=== PATIENT | female | born 1980 | race Caucasian/White ===

== ENCOUNTER → 2016-07-10 | Outpatient (CLI) | payer BC | LOC: M LAB 09:47 | PROVIDERS: ATTEND Psychiatry & Neurology Psychiatry | DX: Z51.81 Encounter for therapeutic drug level monitoring (principal); Z79.899 Other long term (current) drug therapy ==

== ENCOUNTER → 2016-08-12 | Day surgery (SDC) | payer BC ==
[~2016-08-12] VITALS: Ht 160 cm; Wt 86.2 kg
[~2016-08-12] MED LIST: ABIL1TAB5 PO; BUPIVACAINE HCL 0.25% 30 ML VIAL As Ordered ONE; BUPR10TASR PO; HYDROmorphone HCL 1 MG/ML SYRINGE (J1170) IV PRN; KETOROLAC 60 MG/2 ML VIAL (J1885) As Ordered ONE; LIDOCAINE 1% SDV INJ 30 ML VIAL As Ordered ONE; LR 1,000 ML IV SCH; MIDAZOLAM INJ 2 MG/2 ML VIAL (J2250) As Ordered ONE; ONDANSETRON 4MG/2ML VIAL (J2405) As Ordered ONE; ONDANSETRON 4MG/2ML VIAL (J2405) IV PRN; OXYC1TAB23 PO; PERCOCET 5MG/325MG TAB PO PRN; PROPOFOL 500 MG/50 ML VIAL As Ordered ONE; fentaNYL 100 MCG/2 ML INJECTION (J3010) As Ordered ONE; fentaNYL 100 MCG/2 ML INJECTION (J3010) IV PRN
[2016-08-12 13:39] LABS: CONTROL LINE UCG INT CTR LINE PRESENT
[2016-08-12 16:15] VITALS: BP 122/72
--- NOTE | 2016-08-13 07:26 | RO ---
DATE OF PROCEDURE: 08/12/2016 PREPROCEDURE DIAGNOSIS: Right Bartholin's gland abscess. POSTPROCEDURE DIAGNOSIS: Right Bartholin's gland abscess. PROCEDURE: Marsupialization of right Bartholin's gland abscess. SURGEON: Dr. Parker Grigsby. 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 ESTIMATED BLOOD LOSS: Minimal. FINDINGS: 3 cm right Bartholin's gland abscess. OPERATIVE SUMMARY: The patient was taken to the operating room where IV sedation was given. She was prepped and draped in a sterile fashion in dorsal lithotomy position. The right Bartholin's gland abscess was identified and marked with a marking pen. The area was injected with 10 mL of 0.25% Marcaine. Elliptical incision was made in the skin overlying the Bartholin's gland on the right. Bartholin's gland was incised and copious amount of purulent discharge was obtained. Part of the ventral wall of the gland was excised with a scalpel. The skin of the inner labia was secured to the remaining wall of the gland with interrupted sutures of #4-0 Vicryl. Good hemostasis was noted. The area was irrigated with saline. Sponge, needle and instrument counts were correct. The patient went to the recovery room in stable condition.
== END | disposition home or self-care (01) ==
LOC: M SDC 12:43
PROVIDERS: ATTEND Specialist
DX: N75.1 Abscess of Bartholin's gland (principal); J45.909 Unspecified asthma, uncomplicated; F32.9 Major depressive disorder, single episode, unspecified; Z79.899 Other long term (current) drug therapy; Z87.891 Personal history of nicotine dependence
CPT/HCPCS: 36415; 56440; 84703; 85014; 85018; 88304; J1885; J2250; J2405; J3010

== ENCOUNTER → 2016-11-26 | Outpatient (CLI) | payer BC ==
[~2016-11-26] MED LIST changes: +ABIL10TA9 PO; -ABIL1TAB5 PO; -BUPIVACAINE HCL 0.25% 30 ML VIAL As Ordered ONE; -HYDROmorphone HCL 1 MG/ML SYRINGE (J1170) IV PRN; -KETOROLAC 60 MG/2 ML VIAL (J1885) As Ordered ONE; -LIDOCAINE 1% SDV INJ 30 ML VIAL As Ordered ONE; -LR 1,000 ML IV SCH; -MIDAZOLAM INJ 2 MG/2 ML VIAL (J2250) As Ordered ONE; -ONDANSETRON 4MG/2ML VIAL (J2405) As Ordered ONE; -ONDANSETRON 4MG/2ML VIAL (J2405) IV PRN; -PERCOCET 5MG/325MG TAB PO PRN; -PROPOFOL 500 MG/50 ML VIAL As Ordered ONE; -fentaNYL 100 MCG/2 ML INJECTION (J3010) As Ordered ONE; -fentaNYL 100 MCG/2 ML INJECTION (J3010) IV PRN
== END ==
LOC: M LAB 09:02
PROVIDERS: ATTEND Psychiatry & Neurology Psychiatry
DX: Z51.81 Encounter for therapeutic drug level monitoring (principal); Z79.899 Other long term (current) drug therapy

== ENCOUNTER → 2017-01-07 | Outpatient (CLI) | payer BC | LOC: M SMT 14:24 | PROVIDERS: ATTEND Advanced Practice Midwife | DX: Z11.3 Encounter for screening for infections with a predominantly sexual mode of transmission (principal) ==

== ENCOUNTER → 2017-01-17 | Outpatient (REF) | payer BC | LOC: M LAB REF 12:56 | PROVIDERS: ATTEND Obstetrics & Gynecology | DX: Z11.3 Encounter for screening for infections with a predominantly sexual mode of transmission (principal) ==

== ENCOUNTER → 2017-04-18 | Outpatient (CLI) | payer BC ==
[2017-04-18 15:07] LABS: HEMATOCRIT 41.9 % (36.0-47.0); HEMOGLOBIN 13.9 g/dl (12.0-16.0); MEAN CORPUSCULAR HEMOGLOBIN 30.1 pg (27.0-33.0); MEAN CORPUSCULAR HGB CONC 33.2 g/dl (32.0-36.5); MEAN CORPUSCULAR VOLUME 90.7 fl (80.0-96.0); PLATELET COUNT, AUTOMATED 273 10^3/uL (150-450); RED BLOOD COUNT 4.62 10^6/uL (4.00-5.40); RED CELL DISTRIBUTION WIDTH 13.2 % (11.5-14.5); WHITE BLOOD COUNT 10.8 10^3/uL (4.0-10.0)
[2017-04-18 15:40] LABS: ALBUMIN 3.8 GM/DL (3.2-5.2); ALBUMIN/GLOBULIN RATIO 1.19 (1.00-1.93); ALKALINE PHOSPHATASE 55 U/L (45-117); ALT/SGPT 26 U/L (12-78); ANION GAP 4 MEQ/L (8-16); AST/SGOT 14 U/L (7-37); BILIRUBIN,TOTAL 0.5 MG/DL (0.2-1.0); BLOOD UREA NITROGEN 15 MG/DL (7-18); CALCIUM LEVEL 8.2 MG/DL (8.5-10.1); CARBON DIOXIDE LEVEL 29 MEQ/L (21-32); CHLORIDE LEVEL 110 MEQ/L (98-107); CHOLESTEROL LEVEL 144 MG/DL (<200); CREATININE FOR GFR 0.89 MG/DL (0.55-1.02); GLOMERULAR FILTRATION RATE > 60.0 (>60); GLUCOSE, FASTING 91 MG/DL (70-105); HDL CHOLESTEROL 61 MG/DL (>40); IRON (FE) 136 UG/DL (50-170); LDL CHOLESTEROL 58.4 MG/DL (<100); MAGNESIUM LEVEL 2.6 MG/DL (1.8-2.4); NON-HDL-C 83 MG/DL; PERCENT SATURATION 45.2 % (13.2-45.0); POTASSIUM SERUM 3.9 MEQ/L (3.5-5.1); SODIUM LEVEL 143 MEQ/L (136-145); TOTAL 25(OH) VITAMIN D 27.3 NG/ML (30.0-100.0); TOTAL IRON BINDING CAPACITY 301 UG/DL (250-450); TRIGLYCERIDES LEVEL 123 MG/DL (<150)
== END ==
LOC: M LAB 14:44
DX: D64.9 Anemia, unspecified (principal); R53.83 Other fatigue; E03.9 Hypothyroidism, unspecified
CPT/HCPCS: 83550

== ENCOUNTER 2017-06-24 19:12 | Inpatient (IN) | payer BC ==
[2017-06-24 20:15] LABS: HEMATOCRIT 43.2 % (36.0-47.0); HEMOGLOBIN 14.5 g/dl (12.0-16.0); MEAN CORPUSCULAR HEMOGLOBIN 30.1 pg (27.0-33.0); MEAN CORPUSCULAR HGB CONC 33.6 g/dl (32.0-36.5); MEAN CORPUSCULAR VOLUME 89.6 fl (80.0-96.0); PLATELET COUNT, AUTOMATED 262 10^3/uL (150-450); RED BLOOD COUNT 4.82 10^6/uL (4.00-5.40); RED CELL DISTRIBUTION WIDTH 12.6 % (11.5-14.5); WHITE BLOOD COUNT 10.9 10^3/uL (4.0-10.0)
[2017-06-24 20:55] LABS: AMPHETAMINES LEVEL URINE NEGATIVE (NEGATIVE); BARBITURATES URINE NEGATIVE (NEGATIVE); BENZODIAZEPINES URINE NEGATIVE (NEGATIVE); CANNABINOIDS URINE POSITIVE (NEGATIVE); COCAINE METABOLITE URINE POSITIVE (NEGATIVE); METHADONE URINE NEGATIVE (NEGATIVE); OPIATES URINE NEGATIVE (NEGATIVE); PHENCYCLIDINE URINE NEGATIVE (NEGATIVE)
[2017-06-24 21:01] LABS: ALBUMIN 3.9 GM/DL (3.2-5.2); ALBUMIN/GLOBULIN RATIO 1.11 (1.00-1.93); ALKALINE PHOSPHATASE 75 U/L (45-117); ALT/SGPT 21 U/L (12-78); ANION GAP 6 MEQ/L (8-16); AST/SGOT 15 U/L (7-37); BILIRUBIN,DIRECT < 0.1 MG/DL (0.0-0.2); BILIRUBIN,TOTAL 0.3 MG/DL (0.2-1.0); BLOOD UREA NITROGEN 22 MG/DL (7-18); CALCIUM LEVEL 8.8 MG/DL (8.5-10.1); CARBON DIOXIDE LEVEL 28 MEQ/L (21-32); CHLORIDE LEVEL 105 MEQ/L (98-107); CREATININE FOR GFR 1.14 MG/DL (0.55-1.30); ETHYL ALCOHOL (ETHANOL) < 0.003 % (0.000-0.010); GLOMERULAR FILTRATION RATE 57.1 (>60); GLUCOSE, FASTING 111 MG/DL (70-100); POTASSIUM SERUM 3.9 MEQ/L (3.5-5.1); SALICYLATE LEVEL < 1.7 MG/DL (5.0-30.0); SODIUM LEVEL 139 MEQ/L (136-145); THYROID STIMULATING HORMONE 0.993 uIU/ML (0.358-3.740); TOTAL PROTEIN 7.4 GM/DL (6.4-8.2)
[2017-06-24 21:10] LABS: ACETAMINOPHEN LEVEL < 2.0 UG/ML (10.0-30.0)
[2017-06-24] MEDS ORDERED: MAALOX 30 ML SUSP *UDC PO (23:15)
[2017-06-24] MEDS ORDERED: MOM 30ML SUSPENSION UDC PO (23:15)
[2017-06-24] MEDS ORDERED: traZODone 50 MG TAB PO (23:15)
[2017-06-25] MEDS: INFLUENZA QUADRIVALENT PF VACCINE 0.5ML SYRINGE (90686) IM (09:59)
[2017-06-25] MEDS: NICOTINE 14 MG/24 HR TRANSDERMAL TD (10:00)
[2017-06-25] MEDS: buPROPion (WELLBUTRIN SR) 100 MG SR TAB PO (12:27)
[2017-06-25] MEDS: TOPIRAMATE (TopAMAX) 25 MG TAB PO ×2 (12:27→20:15)
[2017-06-25 13:11] LABS: CONTROL LINE HCG INT CTR LINE PRESENT; HCG, SERUM QUALITATIVE NEGATIVE (NEGATIVE)
[2017-06-25] MEDS: risperiDONE 1 MG TAB PO (21:38)
[2017-06-26] MEDS: NICOTINE 14 MG/24 HR TRANSDERMAL TD (08:26)
[2017-06-26] MEDS: buPROPion (WELLBUTRIN SR) 100 MG SR TAB PO (08:27)
[2017-06-26] MEDS: TOPIRAMATE (TopAMAX) 25 MG TAB PO ×2 (08:27→20:49)
[2017-06-26 12:24] LABS: HEMATOCRIT 41.8 % (36.0-47.0); MEAN CORPUSCULAR HEMOGLOBIN 29.7 pg (27.0-33.0); MEAN CORPUSCULAR HGB CONC 33.5 g/dl (32.0-36.5); MEAN CORPUSCULAR VOLUME 88.7 fl (80.0-96.0); PLATELET COUNT, AUTOMATED 278 10^3/uL (150-450); RED BLOOD COUNT 4.71 10^6/uL (4.00-5.40); RED CELL DISTRIBUTION WIDTH 12.6 % (11.5-14.5); WHITE BLOOD COUNT 7.6 10^3/uL (4.0-10.0)
[2017-06-26 13:04] LABS: ALBUMIN 3.8 GM/DL (3.2-5.2); ALBUMIN/GLOBULIN RATIO 1.19 (1.00-1.93); ALKALINE PHOSPHATASE 64 U/L (45-117); ALT/SGPT 23 U/L (12-78); ANION GAP 7 MEQ/L (8-16); AST/SGOT 16 U/L (7-37); BILIRUBIN,TOTAL 0.3 MG/DL (0.2-1.0); BLOOD UREA NITROGEN 19 MG/DL (7-18); CALCIUM LEVEL 9.2 MG/DL (8.5-10.1); CARBON DIOXIDE LEVEL 28 MEQ/L (21-32); CHLORIDE LEVEL 108 MEQ/L (98-107); GLOMERULAR FILTRATION RATE 59.5 (>60); GLUCOSE, FASTING 92 MG/DL (70-100); POTASSIUM SERUM 4.3 MEQ/L (3.5-5.1); SODIUM LEVEL 143 MEQ/L (136-145)
[2017-06-26] MEDS: ACETAMINOPHEN TAB 650MG DOSE (2X325MG) PO (13:23)
[2017-06-26] MEDS: risperiDONE 1 MG TAB PO (21:44)
[2017-06-27] MEDS: TOPIRAMATE (TopAMAX) 25 MG TAB PO (08:35)
[2017-06-27] MEDS: NICOTINE 14 MG/24 HR TRANSDERMAL TD (08:36)
[2017-06-27] MEDS: buPROPion (WELLBUTRIN SR) 100 MG SR TAB PO (08:36)
== END 2017-06-27 11:30 | disposition home or self-care (01) | DRG 755 ==
LOC: M PSY 06-25 00:02 → M ED 19:12 → M ED INP 23:10
DX: F43.23 Adjustment disorder with mixed anxiety and depressed mood (principal); F14.20 Cocaine dependence, uncomplicated; F12.20 Cannabis dependence, uncomplicated; F19.94 Other psychoactive substance use, unspecified with psychoactive substance-induced mood disorder; F60.9 Personality disorder, unspecified; F17.200 Nicotine dependence, unspecified, uncomplicated; Z79.899 Other long term (current) drug therapy

== ENCOUNTER → 2017-08-07 | Outpatient (CLI) | payer SELFPAY | LOC: M OUTALCOH 12:13 | DX: F14.20 Cocaine dependence, uncomplicated (principal) ==

== ENCOUNTER → 2017-08-26 | Outpatient (REF) | payer BC ==
[2017-08-27 13:52] LABS: AMPHETAMINES URINE REFLEX NEGATIVE (NEGATIVE); BARBITURATES URINE REFLEX NEGATIVE (NEGATIVE); BENZODIAZEPINES URINE REFLEX NEGATIVE (NEGATIVE); CANNABINOIDS URINE REFLEX NEGATIVE (NEGATIVE); COCAINE METABOLITE URINE REFLE NEGATIVE (NEGATIVE); METHADONE URINE REFLEX NEGATIVE (NEGATIVE); OPIATES URINE REFLEX NEGATIVE (NEGATIVE); PHENCYCLIDINE URINE REFLEX NEGATIVE (NEGATIVE)
== END ==
LOC: M OUTALCOH 12:54
DX: F12.20 Cannabis dependence, uncomplicated (principal)
CPT/HCPCS: 80307

== ENCOUNTER 2017-08-31 19:37 | Emergency (ER) | payer BC ==
[2017-08-31 20:33] LABS: KETONE, URINE AUTO RFX TRACE mg/dL (NEGATIVE); LEUKOCYTE ESTERASE UR AUTO RFX NEGATIVE (NEGATIVE); MUCUS, URINE RFX SMALL (NEGATIVE); NITRITE, URINE AUTO RFX NEGATIVE (NEGATIVE); RBC, URINE AUTO RFX 87 /HPF (0-3); SPECIFIC GRAVITY UR AUTO RFX 1.021 (1.002-1.035); SQUAM EPITHELIAL CELL UR AURFX 1 /HPF (0-6); WBC, URINE AUTO RFX 3 /HPF (0-3)
== END 2017-08-31 20:06 | disposition left against medical advice (07) ==
LOC: M ED 20:06
DX: Z20.2 Contact with and (suspected) exposure to infections with a predominantly sexual mode of transmission (principal); Z53.21 Procedure and treatment not carried out due to patient leaving prior to being seen by health care provider
CPT/HCPCS: 81001

== ENCOUNTER 2017-09-03 23:09 | Emergency (ER) | payer BC | END 2017-09-04 02:46 | disposition left against medical advice (07) | LOC: M ED 23:09 | DX: Z20.2 Contact with and (suspected) exposure to infections with a predominantly sexual mode of transmission (principal); Z53.21 Procedure and treatment not carried out due to patient leaving prior to being seen by health care provider | CPT/HCPCS: 99282 ==

== ENCOUNTER 2017-09-24 03:08 | Inpatient (IN) | payer OTHER, BC ==
[2017-09-24 04:37] LABS: HEMATOCRIT 40.1 % (36.0-47.0); HEMOGLOBIN 13.7 g/dl (12.0-15.5); MEAN CORPUSCULAR HEMOGLOBIN 30.1 pg (27.0-33.0); MEAN CORPUSCULAR HGB CONC 34.2 g/dl (32.0-36.5); MEAN CORPUSCULAR VOLUME 88.1 fl (80.0-96.0); PLATELET COUNT, AUTOMATED 230 10^3/uL (150-450); RED BLOOD COUNT 4.55 10^6/uL (4.00-5.40); RED CELL DISTRIBUTION WIDTH 12.9 % (11.5-14.5); WHITE BLOOD COUNT 6.6 10^3/uL (4.0-10.0)
[2017-09-24 04:55] LABS: CONTROL LINE HCG INT CTR LINE PRESENT; HCG, SERUM QUALITATIVE NEGATIVE (NEGATIVE)
[2017-09-24 05:00] LABS: AMPHETAMINES LEVEL URINE NEGATIVE (NEGATIVE); BARBITURATES URINE NEGATIVE (NEGATIVE); BENZODIAZEPINES URINE NEGATIVE (NEGATIVE); CANNABINOIDS URINE NEGATIVE (NEGATIVE); COCAINE METABOLITE URINE NEGATIVE (NEGATIVE); METHADONE URINE NEGATIVE (NEGATIVE); OPIATES URINE NEGATIVE (NEGATIVE); PHENCYCLIDINE URINE NEGATIVE (NEGATIVE)
[2017-09-24 05:10] LABS: ALBUMIN 3.6 GM/DL (3.2-5.2); ALBUMIN/GLOBULIN RATIO 1.09 (1.00-1.93); ALKALINE PHOSPHATASE 59 U/L (45-117); ALT/SGPT 15 U/L (12-78); ANION GAP 12 MEQ/L (8-16); AST/SGOT 10 U/L (7-37); BILIRUBIN,DIRECT < 0.1 MG/DL (0.0-0.2); BILIRUBIN,TOTAL 0.2 MG/DL (0.2-1.0); BLOOD UREA NITROGEN 15 MG/DL (7-18); CALCIUM LEVEL 8.5 MG/DL (8.5-10.1); CARBON DIOXIDE LEVEL 24 MEQ/L (21-32); CHLORIDE LEVEL 109 MEQ/L (98-107); CREATININE FOR GFR 1.02 MG/DL (0.55-1.30); ETHYL ALCOHOL (ETHANOL) < 0.003 % (0.000-0.010); GLOMERULAR FILTRATION RATE > 60.0 (>60); GLUCOSE, FASTING 89 MG/DL (70-100); POTASSIUM SERUM 3.7 MEQ/L (3.5-5.1); SALICYLATE LEVEL 2.8 MG/DL (5.0-30.0); SODIUM LEVEL 145 MEQ/L (136-145); TOTAL PROTEIN 6.9 GM/DL (6.4-8.2)
[2017-09-24 05:18] LABS: ACETAMINOPHEN LEVEL < 2.0 UG/ML (10.0-30.0)
[2017-09-24] MEDS ORDERED: traZODone 50 MG TAB PO (11:00)
[2017-09-24] MEDS ORDERED: MAALOX 30 ML SUSP *UDC PO (11:00)
[2017-09-24] MEDS ORDERED: MOM 30ML SUSPENSION UDC PO (11:00)
[2017-09-24] MEDS: PALIPERIDONE 3 MG ER TAB (INVEGA) PO ×2 (12:00→22:16)
[2017-09-24] MEDS: TOPIRAMATE (TopAMAX) 25 MG TAB PO ×2 (12:00→22:16)
[2017-09-24] MEDS: buPROPion (WELLBUTRIN SR) 100 MG SR TAB PO (12:00)
[2017-09-24] MEDS ORDERED: PALIPERIDONE 3 MG ER TAB (INVEGA) PO (21:00)
[2017-09-24] MEDS ORDERED: risperiDONE 1 MG TAB PO (21:00)
[2017-09-25] MEDS: TOPIRAMATE (TopAMAX) 25 MG TAB PO ×2 (08:50→22:03)
[2017-09-25] MEDS: buPROPion (WELLBUTRIN SR) 100 MG SR TAB PO (08:50)
[2017-09-25] MEDS ORDERED: buPROPion (WELLBUTRIN SR) 100 MG SR TAB PO (09:00)
[2017-09-25] MEDS: PALIPERIDONE 3 MG ER TAB (INVEGA) PO (22:03)
[2017-09-26] MEDS: ACETAMINOPHEN TAB 650MG DOSE (2X325MG) PO (03:52)
[2017-09-26] MEDS: TOPIRAMATE (TopAMAX) 25 MG TAB PO (08:51)
[2017-09-26] MEDS: buPROPion (WELLBUTRIN SR) 100 MG SR TAB PO (08:51)
[2017-09-26] MEDS ORDERED: ARIPiprazole 2 MG TAB PO (09:00)
[2017-09-26] MEDS ORDERED: FEXOFENADINE 60 MG TAB PO (12:00)
[2017-09-26] MEDS: SODIUM CHLORIDE 0.9% NASAL GEL 15GM (AYR) (13:57)
[2017-09-26] MEDS ORDERED: PILL CRUSHER/CUTTER 1 EACH XX (14:15)
== END 2017-09-26 14:30 | disposition home or self-care (01) | DRG 750 ==
LOC: M ED 03:08 → M ED INP 05:41 → M PSY 10:25
DX: F25.9 Schizoaffective disorder, unspecified (principal); F19.10 Other psychoactive substance abuse, uncomplicated; M54.2 Cervicalgia; Z79.899 Other long term (current) drug therapy; Z87.891 Personal history of nicotine dependence

== ENCOUNTER 2017-10-01 00:16 | Emergency (ER) | payer OTHER | END 2017-10-01 00:40 | disposition left against medical advice (07) | LOC: M ED 00:16 | DX: Z53.29 Procedure and treatment not carried out because of patient's decision for other reasons (principal) ==

== ENCOUNTER → 2017-12-10 | Outpatient (REF) | LOC: M SMT 09:56 | DX: Z02.71 Encounter for disability determination (principal) ==

== ENCOUNTER 2017-12-24 10:36 | Day surgery (SDC) | payer BC, MEDICAID ==
[~2017-12-24 10:36] MED LIST changes: -ABIL10TA9 PO; -BUPR10TASR PO; +LR 1,000 ML IV; -OXYC1TAB23 PO
[2017-12-24 11:14] LABS: CONTROL LINE UCG INT CTR LINE PRESENT; URINE PREG TEST NEGATIVE (NEGATIVE)
[2017-12-24 11:30] LABS: HEMATOCRIT 40.7 % (36.0-47.0); HEMOGLOBIN 13.9 g/dl (12.0-15.5)
[2017-12-24] MEDS ORDERED: LIDOCAINE 2% INJ 100 MG/5 ML SDV (FOR ANES.) As Ordered ×6 (11:38)
[2017-12-24] MEDS ORDERED: ONDANSETRON 4MG/2ML VIAL (J2405) As Ordered ×6 (11:38)
[2017-12-24] MEDS ORDERED: PROPOFOL 200 MG/20 ML VIAL As Ordered ×6 (11:38)
[2017-12-24] MEDS ORDERED: MIDAZOLAM INJ 2 MG/2 ML VIAL (J2250) As Ordered ×6 (11:38)
[2017-12-24] MEDS ORDERED: fentaNYL 100 MCG/2 ML INJECTION (J3010) As Ordered ×6 (11:39)
[2017-12-24] MEDS ORDERED: dexameTHASONE 4 MG/ML 1ML VIAL (J1100) As Ordered ×6 (11:40)
[2017-12-24] MEDS ORDERED: KETOROLAC 60 MG/2 ML VIAL (J1885) As Ordered ×6 (11:40)
[2017-12-24] MEDS: BUPIVACAINE HCL 0.25% 30 ML VIAL As Ordered ×6 (12:15)
== END 2017-12-24 13:37 | disposition home or self-care (01) ==
LOC: M ADMPAT 10:36
DX: N75.0 Cyst of Bartholin's gland (principal); C96.6 Unifocal Langerhans-cell histiocytosis; F41.9 Anxiety disorder, unspecified; F32.9 Major depressive disorder, single episode, unspecified; F20.9 Schizophrenia, unspecified; J45.909 Unspecified asthma, uncomplicated; R06.83 Snoring; R76.11 Nonspecific reaction to tuberculin skin test without active tuberculosis; Z72.0 Tobacco use; Z79.899 Other long term (current) drug therapy
CPT/HCPCS: 56440

== ENCOUNTER 2017-12-29 05:28 | Emergency (ER) | payer MEDICAID, OTHER, BC ==
[2017-12-29] MEDS: OLANZapine 10 MG TAB PO (05:53)
== END 2017-12-29 06:20 | disposition home or self-care (01) ==
LOC: M ED 05:28
DX: F41.9 Anxiety disorder, unspecified (principal); Z79.899 Other long term (current) drug therapy
CPT/HCPCS: 99284

== ENCOUNTER → 2017-12-31 | Outpatient (CLI) | payer MEDICAID | LOC: M OUTALCOH 08:34 | DX: Z13.89 Encounter for screening for other disorder (principal); F12.20 Cannabis dependence, uncomplicated; F14.20 Cocaine dependence, uncomplicated ==

== ENCOUNTER 2018-01-07 13:00 | Outpatient (RCR) | payer MEDICAID | END 2018-01-11 | LOC: M OUTALCOH 13:00 | DX: F14.20 Cocaine dependence, uncomplicated (principal); F17.200 Nicotine dependence, unspecified, uncomplicated; F12.20 Cannabis dependence, uncomplicated ==

== ENCOUNTER 2018-01-12 10:47 | Outpatient (RCR) | payer MEDICAID | END 2018-02-11 | LOC: M OUTALCOH 01-15 10:00 | DX: F14.20 Cocaine dependence, uncomplicated (principal); F17.200 Nicotine dependence, unspecified, uncomplicated; F12.20 Cannabis dependence, uncomplicated ==

== ENCOUNTER → 2018-01-26 | Outpatient (REF) | payer MEDICAID ==
[2018-01-30 14:21] LABS: HPV LOW VOL RFLX Negative (Negative)
== END ==
LOC: M LAB REF 18:28
DX: Z12.4 Encounter for screening for malignant neoplasm of cervix (principal)

== ENCOUNTER 2018-02-12 16:37 | Outpatient (RCR) | payer MEDICAID | END 2018-03-13 | LOC: M OUTALCOH 02-16 14:00 | DX: F14.20 Cocaine dependence, uncomplicated (principal); F17.200 Nicotine dependence, unspecified, uncomplicated; F12.20 Cannabis dependence, uncomplicated ==

== ENCOUNTER 2018-03-04 18:56 | Emergency (ER) | payer MEDICAID ==
[2018-03-04] MEDS: hydrOXYzine 25 MG TAB PO (22:29)
== END 2018-03-04 22:32 | disposition home or self-care (01) ==
LOC: M ED 18:56
DX: F41.1 Generalized anxiety disorder (principal); F32.9 Major depressive disorder, single episode, unspecified; Z79.899 Other long term (current) drug therapy
CPT/HCPCS: 99283

== ENCOUNTER → 2018-07-22 | Outpatient (CLI) | payer OTHER ==
[~2018-07-22] MED LIST changes: +ABIL10TA9 PO; +ARIP1TAB; +ARIP1TAB4; +ARIP1TAB6 PO; +BUPR10TASR PO; +BUPR200T PO; +FEXO60CA PO; +FLAG500T PO; +HYDR-3363 PO; +IBUP80TA PO; -LR 1,000 ML IV; +NICODIS2 TD; +OXYC1TAB23 PO; +RISP1TAB3 PO; +SODIGEL; +TOPA1TAB; +TOPI25TA10 PO; +TRAZ-160; +WELLTAB40
[2018-07-22 13:11] LABS: HEMATOCRIT 39.2 % (36.0-47.0); HEMOGLOBIN 12.9 g/dl (12.0-15.5); MEAN CORPUSCULAR HEMOGLOBIN 29.4 pg (27.0-33.0); MEAN CORPUSCULAR HGB CONC 32.9 g/dl (32.0-36.5); MEAN CORPUSCULAR VOLUME 89.3 fl (80.0-96.0); PLATELET COUNT, AUTOMATED 230 10^3/uL (150-450); RED BLOOD COUNT 4.39 10^6/uL (4.00-5.40)
[2018-07-22 13:41] LABS: ALBUMIN 3.7 GM/DL (3.2-5.2); ALT/SGPT 36 U/L (12-78); BILIRUBIN,TOTAL 0.2 MG/DL (0.2-1.0); BLOOD UREA NITROGEN 18 MG/DL (7-18); CALCIUM LEVEL 8.9 MG/DL (8.5-10.1); CARBON DIOXIDE LEVEL 25 MEQ/L (21-32); CHLORIDE LEVEL 109 MEQ/L (98-107); CHOLESTEROL LEVEL 128 MG/DL (<200); CHOLESTEROL RISK RATIO 2.133 (<5); CREATININE FOR GFR 1.05 MG/DL (0.55-1.30); GLOMERULAR FILTRATION RATE > 60.0 (>60); GLUCOSE, FASTING 95 MG/DL (70-100); HDL CHOLESTEROL 60 MG/DL (>40); LDL CHOLESTEROL 55 MG/DL (<100); NON-HDL-C 68 MG/DL; POTASSIUM SERUM 4.2 MEQ/L (3.5-5.1); SODIUM LEVEL 140 MEQ/L (136-145); THYROXINE (T4) 7.4 UG/DL (4.5-12.0); TOTAL PROTEIN 6.9 GM/DL (6.4-8.2); TRIGLYCERIDES LEVEL 64 MG/DL (<150)
[2018-07-22 13:42] LABS: TOTAL 25(OH) VITAMIN D 28.3 NG/ML (30.0-100.0)
[2018-07-22 13:43] LABS: TOTAL T3 93.8 NG/DL (60.0-181.0)
[2018-07-22 14:22] LABS: HEMOGLOBIN A1c 5.3 %
--- NOTE | 2018-07-23 03:20 | REP ---
Clinical: Fatigue . Comparison: 08/10/2013 . Technique: PA and lateral. Findings: The mediastinum and cardiac silhouette are normal. The lung brush are clear and without acute consolidation, effusion, or pneumothorax. The skeletal structures are intact and normal. Impression: 1. No acute cardiopulmonary process. Electronically Signed by Fady Huggins MD 07/23/2018 03:11 A
--- NOTE | 2018-07-23 20:31 | ECGEPIP ---
Stationary ECG Study [facility] Test Date: 2018-07-22 Pat Name: ROOPA CAMARENA Department: Room: - Gender: F Bee Rancher: RAY : 1980 Requested By: Belen Bautista Order Number: [id number] Reading MD: Vin Colbert Measurements Intervals Leroy Rate: 51 P: 56 [place]: 176 QRS: 53 QRSD: 105 T: 43 QT: 406 QTc: 374 Interpretive Statements SINUS BRADYCARDIA POSSIBLE RIGHT VENTRICULAR CONDUCTION DELAY MINIMAL ST DEPRESSION No change from 06/25/17. Electronically Signed On 07-23-2018 20:31:25 EDT by Vin Colbert
== END ==
LOC: M LAB 12:17
PROVIDERS: ATTEND Family Medicine
DX: E03.9 Hypothyroidism, unspecified (principal); D64.9 Anemia, unspecified; R53.83 Other fatigue; R00.1 Bradycardia, unspecified; R94.31 Abnormal electrocardiogram [ECG] [EKG]

== ENCOUNTER 2018-12-24 18:00 | Emergency (ER) | payer MEDICAID, OTHER ==
[~2018-12-24] VITALS: Ht 160 cm; Wt 73.5 kg
[2018-12-24 18:00] VITALS: BP 138/76
[~2018-12-24 18:00] MED LIST changes: -TRAZ-160; +TRAZ-252
[2018-12-24] MEDS ORDERED: VALA1TAB2 (18:10)
== END 2018-12-24 21:15 | disposition home or self-care (01) ==
LOC: M ED 18:00
DX: F41.1 Generalized anxiety disorder (principal); F17.210 Nicotine dependence, cigarettes, uncomplicated; J30.2 Other seasonal allergic rhinitis; Z79.3 Long term (current) use of hormonal contraceptives; Z79.83 Long term (current) use of bisphosphonates; Z79.899 Other long term (current) drug therapy

== ENCOUNTER → 2018-12-30 | Outpatient (REF) | payer OTHER ==
[~2018-12-30] MED LIST changes: +VALA1TAB2
== END ==
LOC: M LAB REF 19:09
PROVIDERS: ATTEND Nurse Practitioner Family
DX: E55.9 Vitamin D deficiency, unspecified (principal)

== ENCOUNTER → 2019-02-02 | Outpatient (REF) | payer OTHER, MEDICAID ==
[~2019-02-02] MED LIST changes: +D-101000; +MELO15TA28; -TOPA1TAB; +TOPA1TAB PO
[2019-02-06 15:57] LABS: HPV LOW VOL RFLX Negative (Negative)
== END ==
LOC: M LAB REF 18:43
PROVIDERS: ATTEND Specialist
DX: Z12.4 Encounter for screening for malignant neoplasm of cervix (principal); R87.610 Atypical squamous cells of undetermined significance on cytologic smear of cervix (ASC-US)

== ENCOUNTER 2019-02-12 13:51 | Emergency (ER) | payer MEDICAID, OTHER ==
[~2019-02-12] VITALS: Ht 160 cm; Wt 74.1 kg
[~2019-02-12 13:51] MED LIST changes: -D-101000; -MELO15TA28
[2019-02-12] MEDS ORDERED: D-101000 (14:14)
[2019-02-12] MEDS ORDERED: MELO15TA28 (14:14)
[2019-02-12 15:08] LABS: BASO # 0.1 10^3/uL (0.0-0.2); BASO % 0.5 % (0.0-1.0); EOS # 0.2 10^3/uL (0.0-0.5); EOS % 2.1 % (0.0-3.0); HEMATOCRIT 44.3 % (36.0-47.0); HEMOGLOBIN 14.3 g/dl (12.0-15.5); LYMPH # 2.4 10^3/uL (1.5-5.0); LYMPH % 22.2 % (24.0-44.0); MEAN CORPUSCULAR HEMOGLOBIN 30.3 pg (27.0-33.0); MEAN CORPUSCULAR HGB CONC 32.3 g/dl (32.0-36.5); MEAN CORPUSCULAR VOLUME 93.9 fl (80.0-96.0); MONO # 0.6 10^3/uL (0.0-0.8); MONO % 5.6 % (0.0-5.0); NEUTROPHILS # 7.6 10^3/uL (1.5-8.5); NEUTROPHILS % 69.3 % (36.0-66.0); PLATELET COUNT, AUTOMATED 264 10^3/uL (150-450); RED BLOOD COUNT 4.72 10^6/uL (4.00-5.40); WHITE BLOOD COUNT 10.9 10^3/uL (4.0-10.0)
[2019-02-12 15:18] LABS: INR 1.07; PROTHROMBIN TIME 13.6 SECONDS (11.8-14.0)
[2019-02-12 15:19] LABS: PARTIAL THROMBOPLASTIN TIME 29.6 SECONDS (25.0-38.4)
[2019-02-12 15:21] LABS: D-DIMER QUANT 1048.91 ng/ml (<500)
--- NOTE | 2019-02-12 15:25 | REP ---
Two-view chest: 02/12/2019. Indication: Chest pain. Comparison: 07/22/2018. Findings: The lungs are clear. There is no pleural effusion or pneumothorax. The cardiomediastinal silhouette is unremarkable. New impression: No acute cardiopulmonary process. Electronically Signed by Timoteo Gao DO 02/12/2019 03:17 P
[2019-02-12 15:35] LABS: MONO REFLEX EBV COMP NEGATIVE (NEGATIVE)
[2019-02-12 15:36] LABS: ALBUMIN 3.5 GM/DL (3.2-5.2); ALT/SGPT 33 U/L (12-78); BILIRUBIN,DIRECT < 0.1 MG/DL (0.0-0.2); BILIRUBIN,TOTAL 0.2 MG/DL (0.2-1.0); BLOOD UREA NITROGEN 25 MG/DL (7-18); C REACTIVE PROTEIN QUANTITATIV < 0.30 MG/DL (0.00-0.30); CALCIUM LEVEL 8.5 MG/DL (8.5-10.1); CARBON DIOXIDE LEVEL 26 MEQ/L (21-32); CHLORIDE LEVEL 113 MEQ/L (98-107); CREATININE FOR GFR 1.04 MG/DL (0.55-1.30); GLOMERULAR FILTRATION RATE > 60.0 (>60); GLUCOSE, FASTING 90 MG/DL (70-100); POTASSIUM SERUM 4.1 MEQ/L (3.5-5.1); SODIUM LEVEL 144 MEQ/L (136-145); TOTAL PROTEIN 7.1 GM/DL (6.4-8.2)
[2019-02-12 15:39] LABS: ERYTHROCYTE SEDIMENTATION RATE 8 mm/hr (0-20)
[2019-02-12] MEDS ORDERED: ISOVUE-370 76% 100ML VIAL (Q9967) As Ordered ONE (15:41)
--- NOTE | 2019-02-12 16:43 | REP ---
CT PULMONARY ANGIOGRAM: WITH IV CONTRAST. HISTORY: Shortness of breath, swollen lymph nodes. COMPARISON STUDIES: Comparison chest CT study and April 02, 2011. CONTRAST DOSE: 75 mL of Isovue [address] TECHNIQUE: Helical scanning is acquired and overlapping 1.5 mm and contiguous 3 mm axial images are reformatted. In addition, maximum intensity projection and multiplanar re-formation images are generated in sagittal and coronal imaging projections. CT PULMONARY ANGIOGRAPHIC FINDINGS: There is good opacification of the pulmonary arterial tree. There is no vessel cutoff or filling defect to suggest pulmonary embolus. Maximum intensity projection images show no evidence of pulmonary embolus. The thoracic aorta enhances homogeneously. There is no evidence of dissection or aneurysm. There is a small quantity of residual thymic tissue in the anterior mediastinum, unchanged from the 2011 prior study. There is no evidence of hilar or mediastinal mass or adenopathy. There is a tiny amount of pericardial effusion. In addition, there are tiny bilateral pleural effusions. Similar findings were seen in 2011. The lung brush are clear. There is a tiny 2-3 mm nodule in the left upper lobe on page 19 of 90 in series 602 of today's study. This is unchanged from the 2011 study. IMPRESSION: No CT evidence of pulmonary embolus. Very small amount of right pleural and pericardial fluid, similar to the prior study in 2010. Otherwise negative. Electronically Signed by John Boone MD 02/13/2019 09:30 A
[2019-02-12 18:00] VITALS: BP 126/71
[2019-02-16 00:14] LABS: EBV VIRAL CAPSID AG IgM <36.0 U/mL (0.0-35.9)
== END 2019-02-12 18:11 | disposition home or self-care (01) ==
LOC: M ED 13:51
DX: R59.0 Localized enlarged lymph nodes (principal); J02.9 Acute pharyngitis, unspecified; R06.02 Shortness of breath; R91.1 Solitary pulmonary nodule; I31.3 Pericardial effusion (noninflammatory); J45.909 Unspecified asthma, uncomplicated; Z86.2 Personal history of diseases of the blood and blood-forming organs and certain disorders involving the immune mechanism
CPT/HCPCS: 36415; 71046; 71275; 80048; 80076; 85025; 85379; 85610; 85652; 85730; 86140; 86308; 86663; 86664; 86665; 87880; 99284; Q9967

== ENCOUNTER → 2019-04-19 | Outpatient (REF) | payer OTHER, MEDICAID ==
[~2019-04-19] MED LIST changes: +D-101000; +MELO15TA28; -VALA1TAB2; +VALA1TAB64
[2019-04-19 21:26] LABS: CHLAMYDIA DNA AMPLIFICATION NEGATIVE (NEGATIVE); GC DNA AMPLIFICATION NEGATIVE (NEGATIVE)
== END ==
LOC: M SFHCWAGY 16:52
PROVIDERS: ATTEND Advanced Practice Midwife
DX: Z11.3 Encounter for screening for infections with a predominantly sexual mode of transmission (principal)

== ENCOUNTER 2019-08-21 21:12 | Emergency (ER) | payer MEDICAID, OTHER ==
[~2019-08-21] VITALS: Ht 160 cm; Wt 77.9 kg
[~2019-08-21 21:12] MED LIST changes: +VALA1TAB5; -VALA1TAB64
[2019-08-21] MEDS ORDERED: ALPRAZolam 0.25 MG TAB PO ONE (21:45)
[2019-08-21] MEDS ORDERED: HYDR-643 PO (22:11)
[2019-08-21 22:25] VITALS: BP 142/68
== END 2019-08-21 22:27 | disposition home or self-care (01) ==
LOC: M ED 21:12
DX: F41.1 Generalized anxiety disorder (principal); J45.909 Unspecified asthma, uncomplicated; Z79.899 Other long term (current) drug therapy

== ENCOUNTER → 2019-08-25 | Outpatient (CLI) | payer MEDICAID ==
[~2019-08-25] MED LIST changes: +HYDR-643 PO
== END ==
LOC: M OUTALCOH 08:09
PROVIDERS: ATTEND Psychiatry & Neurology Addiction Medicine
DX: F12.10 Cannabis abuse, uncomplicated (principal); F17.200 Nicotine dependence, unspecified, uncomplicated

== ENCOUNTER 2019-09-01 13:11 | Outpatient (RCR) | payer MEDICAID | END 2019-09-12 | LOC: M OUTALCOH 13:11 | PROVIDERS: ATTEND Psychiatry & Neurology Addiction Medicine | DX: F12.10 Cannabis abuse, uncomplicated (principal); F17.200 Nicotine dependence, unspecified, uncomplicated ==

== ENCOUNTER → 2019-09-30 | Outpatient (CLI) | payer OTHER ==
[~2019-09-30] MED LIST changes: +CIPR0.3S OD
== END ==
LOC: M LABSMTC 10:21
PROVIDERS: ATTEND Family Medicine
DX: Z20.828 Contact with and (suspected) exposure to other viral communicable diseases (principal)
CPT/HCPCS: C9803; U0003

== ENCOUNTER 2019-10-18 21:04 | Emergency (ER) | payer MEDICAID, OTHER ==
[~2019-10-18] VITALS: Ht 160 cm; Wt 75.7 kg
[~2019-10-18 21:04] MED LIST changes: -CIPR0.3S OD
[2019-10-19] MEDS ORDERED: FLUORESCEIN OPHTH 1 MG STRIP OD ONE
[2019-10-19] MEDS ORDERED: TETRACAINE 0.5% OPHTH SOLN 4ML OU ONE
[2019-10-19] MEDS ORDERED: CIPR0.3S OD (00:13)
[2019-10-19] MEDS ORDERED: CIPROFLOXACIN 0.3% OPHTH SOLN 2.5ML OD ONE (00:15)
[2019-10-19 00:26] VITALS: BP 116/80
== END 2019-10-19 00:32 | disposition home or self-care (01) ==
LOC: M ED 21:04
DX: S05.01XA Injury of conjunctiva and corneal abrasion without foreign body, right eye, initial encounter (principal); Y92.9 Unspecified place or not applicable; Y93.9 Activity, unspecified; Y99.9 Unspecified external cause status

== ENCOUNTER 2020-02-08 22:07 | Emergency (ER) | payer MEDICAID, OTHER ==
[~2020-02-08] VITALS: Ht 162.6 cm; Wt 76.7 kg
[2020-02-08 22:07] VITALS: BP 130/71
[~2020-02-08 22:07] MED LIST changes: +CIPR0.3S6 OD
[2020-02-08] MEDS ORDERED: VALA500T5 PO (22:22)
[2020-02-08] MEDS ORDERED: ALBU83IN INH (22:22)
[2020-02-08] MEDS ORDERED: TRAZ-252 PO (22:22)
[2020-02-08] MEDS ORDERED: AMMO12LO TOP (22:22)
[2020-02-08] MEDS ORDERED: KEFL500C17 PO (23:16)
== END 2020-02-08 23:20 | disposition home or self-care (01) ==
LOC: M ED 22:07
DX: L02.211 Cutaneous abscess of abdominal wall (principal); J45.909 Unspecified asthma, uncomplicated; F33.9 Major depressive disorder, recurrent, unspecified; F41.9 Anxiety disorder, unspecified; Z79.51 Long term (current) use of inhaled steroids; Z79.899 Other long term (current) drug therapy

== ENCOUNTER → 2020-05-01 | Outpatient (CLI) | payer MEDICARE, OTHER ==
[~2020-05-01] MED LIST changes: +ALBU83IN INH; +AMMO12LO TOP; -BUPR200T PO; +BUPR200T2 PO; +KEFL500C17 PO; +RISP-8 PO; -RISP1TAB3 PO; +TRAZ-252 PO; +VALA500T5 PO
[2020-05-01 09:30] LABS: BASO # 0.1 10^3/uL (0.0-0.2); BASO % 0.9 % (0.0-1.0); EOS # 0.2 10^3/uL (0.0-0.5); EOS % 2.6 % (0.0-3.0); HEMATOCRIT 46.5 % (36.0-47.0); HEMOGLOBIN 15.2 g/dl (12.0-15.5); LYMPH # 2.4 10^3/uL (1.5-5.0); LYMPH % 33.9 % (24.0-44.0); MEAN CORPUSCULAR HEMOGLOBIN 31.1 pg (27.0-33.0); MEAN CORPUSCULAR HGB CONC 32.7 g/dl (32.0-36.5); MEAN CORPUSCULAR VOLUME 95.1 fl (80.0-96.0); MONO # 0.6 10^3/uL (0.0-0.8); NEUTROPHILS # 3.8 10^3/uL (1.5-8.5); NEUTROPHILS % 54.3 % (36.0-66.0); PLATELET COUNT, AUTOMATED 209 10^3/uL (150-450); RED BLOOD COUNT 4.89 10^6/uL (4.00-5.40)
[2020-05-01 10:03] LABS: ALBUMIN 3.8 GM/DL (3.2-5.2); BILIRUBIN,TOTAL 0.4 MG/DL (0.2-1.0); CALCIUM LEVEL 9.1 MG/DL (8.5-10.1); CHOLESTEROL RISK RATIO 3.113 (<5); CREATININE FOR GFR 1.23 MG/DL (0.55-1.30); GLOMERULAR FILTRATION RATE 51.7 (>60); PERCENT SATURATION 38.5 % (13.2-45.0); POTASSIUM SERUM 4.1 MEQ/L (3.5-5.1); THYROID STIMULATING HORMONE 1.01 uIU/ML (0.358-3.740); TOTAL PROTEIN 7.2 GM/DL (6.4-8.2)
[2020-05-01 10:33] LABS: TOTAL 25(OH) VITAMIN D 35.2 NG/ML (30.0-100.0)
[2020-05-01 10:34] LABS: FOLATE 18.2 NG/ML
== END ==
LOC: M LAB 08:52
PROVIDERS: ATTEND Physician Assistant
DX: E55.9 Vitamin D deficiency, unspecified (principal); R53.83 Other fatigue; Z13.220 Encounter for screening for lipoid disorders; Z13.228 Encounter for screening for other metabolic disorders; Z79.899 Other long term (current) drug therapy

== ENCOUNTER → 2020-05-12 | Outpatient (CLI) | payer SELFPAY | LOC: M LABSMTC 10:07 | PROVIDERS: ATTEND Pediatrics | DX: Z20.822 Contact with and (suspected) exposure to COVID-19 (principal) ==

== ENCOUNTER → 2020-05-21 | Outpatient (REF) | payer MEDICARE, OTHER | LOC: M WUC 17:29 | PROVIDERS: ATTEND Physician Assistant | DX: J02.9 Acute pharyngitis, unspecified (principal) ==

== ENCOUNTER → 2020-05-26 | Outpatient (REF) | payer MEDICARE, OTHER ==
[~2020-05-26] MED LIST changes: +ALBU8.5H INH; +AMOX500C PO; -ARIP1TAB; +ARIP1TAB PO; -ARIP1TAB4; +ARIP1TAB4 PO; +BUPR300T92 PO; +D31000TA2 PO; +FURO80VL IV; +KLOR10TA76 PO; +MELO15TA28 PO
[2020-05-26 12:57] LABS: PERCENT SATURATION 36.2 % (13.2-45.0)
== END ==
LOC: M LAB REF 11:46
PROVIDERS: ATTEND Physician Assistant
DX: R53.83 Other fatigue (principal)

== ENCOUNTER 2020-05-29 01:23 | Inpatient (IN) | payer MEDICARE, OTHER ==
[~2020-05-29] VITALS: Ht 165.1 cm; Wt 74.1 kg
[2020-05-29] VITALS (25 sets, daily range): BP systolic 111–182; BP diastolic 63–111
[~2020-05-29 01:23] MED LIST changes: -ALBU8.5H INH; -AMOX500C PO; -BUPR300T92 PO; -D31000TA2 PO; -FURO80VL IV; -KLOR10TA76 PO; -MELO15TA28 PO
--- OUTSIDE RECORDS SUMMARY | 2020-05-29 01:28 | CCD ---
Author Organization Unknown Address [address] [place] [address] Phone [phone] Care Team Providers Care Director Center Name Role Phone Denita Muhammad Unavailable Unavailable Allergies Notes: seasonal allergies Medications Name Status Start Date Stop Date albuterol sulfate HFA 90 mcg/actuation aerosol inhaler Active Not available alfalfa Completed 05/01/2020 aripiprazole 10 mg tablet TAKE ONE TABLET BY MOUTH EVERY DAY AT BEDTIME DIRECTED Active Not available aripiprazole 2 mg tablet TAKE ONE TABLET BY MOUTH EVERY DAY AT BEDTIME DIRECTED Active Not available bupropion HCl XL 300 mg 24 hr tablet, ex tended release TAKE ONE TABLET BY MOUTH EVERY DAY IN THE MORNING Active Not available Calcium Liquid Active Not available cephalexin 500 mg capsule TAKE ONE CAPSULE BY MOUTH EVERY 12 HOURS Completed 04/28/2020 cholecalciferol (vitamin D3) 25 mcg (1,0 00 unit) tablet TAKE ONE TABLET BY MOUTH EVERY DAY Completed 04/14 ciprofloxacin 0.3 % eye drops Completed clindamycin phosphate 1 % topical solution Active Not available coconut oil Active Not available d3-1000 25 mcg (1000 ut) caps Completed 0 04/28/2020 Emergen-C Completed 04/28/2020 Fluarix Quad (PF) 60 mcg (15 m cg x 4)/0.5 mL IM syringe ADMINISTER 0.5ML IN THE MUSCLE DIRECTED Completed 04/28/2020 hydroxyzine HCl 10 mg tablet Completed meloxicam 15 mg tablet TAKE ONE TABLET BY MOUTH EVERY DAY WITH FOOD OR MILK Active Not available metronidazole 500 mg tablet TAKE ONE TABLET BY MOUTH THREE TIMES A DAY FOR 7 DAYS Completed 04/28/2020 nicotine 14 mg/24 hr daily transdermal patch Active Not available Probiotic Active Not available topiramate 25 mg tablet TAKE ONE TABLET BY MOUTH TWICE A DAY Active No t available trazodone 50 mg tablet TAKE ONE TABLET BY MOUTH AT BEDTIME NEEDED FOR SLEEP Active Not available urea 20 % topical cream Active Not avai lable valacyclovir 500 mg tablet Active Not a vailable Vitamin C Active Not available vitamin d3 25 mcg (1000 ut) tabs Active Not available Vitamin D3 25 mcg (1,000 unit) capsule TAKE 1 CAPSULE BY MOUTH ONCE DAILY Completed 04/14 zinc Active Not available Problems Name Status Onset Date Source Vitamin D Deficiency Active 12/30/2018 History Anxiety Active 12/30/2018 History Procedure by Method Unknown 12/30/2018 History Langerhans Cell Histiocytosis, 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 [address] [place] [address] (Work Place) Notes: 1995 breast reduction , teeth ext ractions, 2011 cyst removed from head , 2014 cyst removed from cervix , DNC, Barthaline gland removed JACINTO , Results Lab Results None recorded. Past Encounters 04/28/2020 Adult Health Examination; Vitamin D Deficiency; Fatigue; Transient Gluten Sensitivity; Screening for Malignant Neoplasm of Breast; Smoker; Low Back Pain; Hyperlipidemia Screening; Endocrine/metabolic Screening Denita Muhammad PA-C: [address] [place] [address], Ph. Social History Tobacco Smoking Status Light Tobacco Smoker (1 PPW) Notes: P t trying to cut down Vaccine List None recorded. Plan of Care Reminders Provider Appointments None recorded. Lab None recorded. Referral None recorded. Procedures None recorded. Surgeries None recorded. Imaging None recorded. Vitals 04/28/2020 02:00PM ANNUAL EXAM Height Weight BMI Blood Pressure 63 in 165 lbs 2 oz 29.3 kg/m2 135/79 mm[Hg] 08/05/2019 Height Weight Blood Pressure 63 in 161 lbs 136/88 mm[Hg] 03/03/2019 Height Weight Blood Pressure 63 in 161 lbs 152/93 mm[Hg] 02/12/2019 Height Weight Blood Pressure 63 in 167 lbs 8 oz 122/79 mm[Hg] 12/30/2018 Height Weight Blood Pressure 63 in 158 lbs 114/81 mm[Hg]
--- OUTSIDE RECORDS SUMMARY | 2020-05-29 01:28 | CCD | Continuity of Care Document ---
Author Author Carmelina VILLEGAS PA Organization Unknown Address [address] [place] [address] Phone [phone] Care Team Providers Care Digital Printer Operator Name Role Phone Denita MuhammadM [phone] Problems Description No Information Available Social History Type Date Description Comments Sex Unknown ETOH Use Denies alcohol use Tobacco Use Start: Unknown Patient is a current smoker, smo kes every day < 1/2 ppd Smoking Status Reviewed: 05/21/20 Patient is a current smoker, smokes every day < 1/2 ppd Allergies, Adverse Reactions, Alerts Description No Known Drug Allergies Medications Active Medications SIG Qnty Indications Ordering Provide r Date Abilify 5mg Tablets one per d ay Unknown Bupropion Hydrochloride ER (XL) 300mg Tablets ER 24HR 1 by mouth every day Unknown 000 Topamax 50mg Tablets qd Unknown Trazodone HCL 50mg Tablets qd Unknown Meloxicam 7.5mg Tablets 1 by mouth every day Unknown Vitamin D (Ergocalciferol) 1.25mg (88362 Ut) Capsules qd Unknown Valtrex 1gm Tablets 1 tab by mouth three times a day for 7 days Unknown 0 Immunizations Description No Information Available Vital Signs Date Vital Result Comment 05/21/2020 8:36am BP Systolic 104 mmHg BP Diastolic 71 mmHg Heart Rate 98 /min Respiratory Rate 16 /min O2 % BldC Oximetry 99 % Body Temperature 97.3 F Weight 158.00 lb Pain Level 8 Results Description No Information Available Procedures Description No Information Available Medical Devices Description No Information Available Encounters Description No Information Available Assessments Description No Information Available Plan of Treatment No Information Available Functional Status Description No Information Available Mental Status Description No Information Available Referrals Description No Information Available
--- OUTSIDE RECORDS SUMMARY | 2020-05-29 01:28 | CCD ---
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 Name Role Phone Gabriella MUÑOZ DPM Unavailable Unavailable Gabriella MUÑOZ DPM Unavailable Unavailable Gabriella MUÑOZ DPM Unavailable Unavailable Gabriella MUÑOZ DPM Unavailable Unavailable Gabriella MUÑOZ DPM Unavailable Unavailable Gabriella MUÑOZ DPM Unavailable Unavailable Gabriella MUÑOZ DPM Unavailable Unavailable Gabriella MUÑOZ DPM Unavailable Unavailable Gabriella MUÑOZ DPM Unavailable Unavailable Gabriella MUÑOZ DPM Unavailable Unavailable Gabriella MUÑOZ DPM Unavailable Unavailable Gabriella MUÑOZ DPM Unavailable Unavailable Gabriella MUÑOZ DPM Unavailable Unavailable Gabriella MUÑOZ DPM Unavailable Unavailable Gabriella MUÑOZ DPM Unavailable Unavailable MAJAK, R HERNESTO DPM Unavailable Unavailable MAJAK, R HERNESTO DPM Unavailable Unavailable MAJAK, R HERNESTO DPM Unavailable Unavailable MAJAK, R HERNESTO DPM Unavailable Unavailable MAJAK, R HERNESTO DPM Unavailable Unavailable MAJAK, R HERNESTO DPM Unavailable Unavailable MAJAK, R HERNESTO DPM Unavailable Unavailable MAJAK, R HERNESTO DPM Unavailable Unavailable MAJAK, R HERNESTO DPM Unavailable Unavailable MAJAK, R HERNESTO DPM Unavailable Unavailable MAJAK, R HERNESTO DPM Unavailable Unavailable MAJAK, R HERNESTO DPM Unavailable Unavailable MAJAK, R HERNESTO DPM Unavailable Unavailable MAJAK, R HERNESTO DPM Unavailable Unavailable MAJAK, R HERNESTO DPM Unavailable Unavailable Jose Rafael MINA MD Unavailable Unavailable Jose Rafael MINA MD Unavailable Unavailable Jose Rafael MINA MD Unavailable Unavailable Jose Rafael MINA MD Unavailable Unavailable Jose Rafael MINA MD Unavailable Unavailable Jose Rafael MINA MD Unavailable Unavailable Jose Rafael MINA MD Unavailable Unavailable Jose Rafael MINA MD Unavailable Unavailable Jose Rafael MINA MD Unavailable Unavailable Jose Rafael MINA MD Unavailable Unavailable Jose Rafael MINA MD Unavailable Unavailable Jose Rafael MINA MD Unavailable Unavailable Jose Rafael MINA MD Unavailable Unavailable Jose Rafael MINA MD Unavailable Unavailable Jose Rafael MINA MD Unavailable Unavailable Jose Rafael MINA MD Unavailable Unavailable Jose Rafael MINA MD Unavailable Unavailable Jose Rafael MINA MD Unavailable Unavailable Jose Rafael MINA MD Unavailable Unavailable Jose Rafael MINA MD Unavailable Unavailable Jose Rafael MINA MD Unavailable Unavailable Jose Rafael MINA MD Unavailable Unavailable Jose Rafael MINA MD Unavailable Unavailable Jose Rafael MINA MD Unavailable Unavailable Jose Rafael MINA MD Unavailable Unavailable Jose Rafael MINA MD Unavailable Unavailable Jose Rafael MINA MD Unavailable Unavailable Jose Rafael MINA MD Unavailable Unavailable Jose Rafael MINA MD Unavailable Unavailable Jose Rafael MINA MD Unavailable Unavailable Jose Rafael MINA MD Unavailable Unavailable Jose Rafael MINA MD Unavailable Unavailable Jose Rafael MINA MD Unavailable Unavailable Jose Rafael MINA MD Unavailable Unavailable Jose Rafael MINA MD Unavailable Unavailable Jose Rafael MINA MD Unavailable Unavailable Jose Rafael MINA MD Unavailable Unavailable Jose Rafael MINA MD Unavailable Unavailable Jose Rafael MINA MD Unavailable Unavailable Jose Rafael MINA MD Unavailable Unavailable Jose Rafael MINA MD Unavailable Unavailable Jose Rafael MINA MD Unavailable Unavailable Jose Rafael MINA MD Unavailable Unavailable Jose Rafael MINA MD Unavailable Unavailable Jose Rafael MINA MD Unavailable Unavailable Jose Rafael MINA MD Unavailable Unavailable Jose Rafael MINA MD Unavailable Unavailable Jose Rafael MINA MD Unavailable Unavailable Jose Rafael MINA MD Unavailable Unavailable Scordo, M Denita PA Unavailable Unavailable Scordo, M Denita PA Unavailable Unavailable Scordo, M Denita PA Unavailable Unavailable Scordo, M Denita PA Unavailable Unavailable Scordo, M Denita PA Unavailable Unavailable Scordo, M Denita PA Unavailable Unavailable Scordo, M Denita PA Unavailable Unavailable Scordo, M Denita PA Unavailable Unavailable Scordo, M Denita PA Unavailable Unavailable Scordo, M Denita PA Unavailable Unavailable Scordo, M Denita PA Unavailable Unavailable Scordo, M Denita PA Unavailable Unavailable Scordo, M Denita PA Unavailable Unavailable Scordo, M Denita PA Unavailable Unavailable Scordo, M Denita PA Unavailable Unavailable Scordo, M Denita PA Unavailable Unavailable Scordo, M Denita PA Unavailable Unavailable Scordo, M Denita PA Unavailable Unavailable Scordo, M Denita PA Unavailable Unavailable Scordo, M Denita PA Unavailable Unavailable Scordo, M Denita PA Unavailable Unavailable Scordo, M Denita PA Unavailable Unavailable Scordo, M Denita PA Unavailable Unavailable Scordo, M Denita PA Unavailable Unavailable Scordo, M Denita PA Unavailable Unavailable Scordo, M Denita PA Unavailable Unavailable Scordo, M Denita PA Unavailable Unavailable Scordo, M Denita PA Unavailable Unavailable Scordo, M Denita PA Unavailable Unavailable Scordo, M Denita PA Unavailable Unavailable Scordo, M Denita PA Unavailable Unavailable Scordo, M Denita PA Unavailable Unavailable Scordo, M Denita PA Unavailable Unavailable Scordo, M Denita PA Unavailable Unavailable Scordo, M Denita PA Unavailable Unavailable Scordo, M Denita PA Unavailable Unavailable Scordo, M Denita PA Unavailable Unavailable Scordo, M Denita PA Unavailable Unavailable Scordo, M Denita PA Unavailable Unavailable Scordo, M Denita PA Unavailable Unavailable Scordo, M Denita PA Unavailable Unavailable Scordo, M Denita PA Unavailable Unavailable Brown, Prema SEASONAL GREENERY BUNDLER SEASONAL GREENERY BUNDLER Unavailable Unavailable JINGA, CRISTINO [id number] Unavailable Unavailable Brown, F Prema SEASONAL GREENERY BUNDLER-BC Unavailable Unavailable Brown, F Prema SEASONAL GREENERY BUNDLER-BC Unavailable Unavailable Brown, F Prema SEASONAL GREENERY BUNDLER-BC Unavailable Unavailable Brown, F Prema SEASONAL GREENERY BUNDLER-BC Unavailable Unavailable Brown, F Prema SEASONAL GREENERY BUNDLER-BC Unavailable Unavailable Brown, F Prema SEASONAL GREENERY BUNDLER-BC Unavailable Unavailable Brown, F Prema SEASONAL GREENERY BUNDLER-BC Unavailable Unavailable Brown, F Prema SEASONAL GREENERY BUNDLER-BC Unavailable Unavailable Brown, F Prema SEASONAL GREENERY BUNDLER-BC Unavailable Unavailable Brown, F Prema SEASONAL GREENERY BUNDLER-BC Unavailable Unavailable Brown, F Prema SEASONAL GREENERY BUNDLER-BC Unavailable Unavailable Brown, F Prema SEASONAL GREENERY BUNDLER-BC Unavailable Unavailable Brown, F Prema SEASONAL GREENERY BUNDLER-BC Unavailable Unavailable Brown, F Prema SEASONAL GREENERY BUNDLER-BC Unavailable Unavailable Brown, F Prema SEASONAL GREENERY BUNDLER-BC Unavailable Unavailable Brown, F Prema SEASONAL GREENERY BUNDLER-BC Unavailable Unavailable Brown, F Prema SEASONAL GREENERY BUNDLER-BC Unavailable Unavailable Brown, F Prema SEASONAL GREENERY BUNDLER-BC Unavailable Unavailable Brown, F Prema SEASONAL GREENERY BUNDLER-BC Unavailable Unavailable Brown, F Prema SEASONAL GREENERY BUNDLER-BC Unavailable Unavailable Brown, F Prema SEASONAL GREENERY BUNDLER-BC Unavailable Unavailable Brown, F Prema SEASONAL GREENERY BUNDLER-BC Unavailable Unavailable Brown, F Prema SEASONAL GREENERY BUNDLER-BC Unavailable Unavailable Brown, F Prema SEASONAL GREENERY BUNDLER-BC Unavailable Unavailable Brown, F Prema SEASONAL GREENERY BUNDLER-BC Unavailable Unavailable Brown, F Prema SEASONAL GREENERY BUNDLER-BC Unavailable Unavailable Brown, F Prema SEASONAL GREENERY BUNDLER-BC Unavailable Unavailable Brown, F Prema SEASONAL GREENERY BUNDLER-BC Unavailable Unavailable Brown, F Prema SEASONAL GREENERY BUNDLER-BC Unavailable Unavailable Brown, F Prema SEASONAL GREENERY BUNDLER-BC Unavailable Unavailable Brown, F Prema SEASONAL GREENERY BUNDLER-BC Unavailable Unavailable Brown, F Prema SEASONAL GREENERY BUNDLER-BC Unavailable Unavailable Brown, F Prema SEASONAL GREENERY BUNDLER-BC Unavailable Unavailable Brown, F Prema SEASONAL GREENERY BUNDLER-BC Unavailable Unavailable Brown, F Prema SEASONAL GREENERY BUNDLER-BC Unavailable Unavailable Brown, F Prema SEASONAL GREENERY BUNDLER-BC Unavailable Unavailable Brown, F Prema SEASONAL GREENERY BUNDLER-BC Unavailable Unavailable Brown, F Prema SEASONAL GREENERY BUNDLER-BC Unavailable Unavailable Brown, F Prema SEASONAL GREENERY BUNDLER-BC Unavailable Unavailable Brown, F Prema SEASONAL GREENERY BUNDLER-BC Unavailable Unavailable Brown, F Prema SEASONAL GREENERY BUNDLER-BC Unavailable Unavailable Brown, F Prema SEASONAL GREENERY BUNDLER-BC Unavailable Unavailable Brown, F Prema SEASONAL GREENERY BUNDLER-BC Unavailable Unavailable Brown, F Prema SEASONAL GREENERY BUNDLER-BC Unavailable Unavailable CRUZ, E TEAGAN Unavailable Unavailable CRUZ, E TEAGAN Unavailable Unavailable CRUZ, E TEAGAN Unavailable Unavailable CRUZ, E TEAGAN Unavailable Unavailable CRUZ, E TEAGAN Unavailable Unavailable CRUZ, E TEAGAN Unavailable Unavailable Santos, Daisy Pastora PA Unavailable Unavailable Santos, Daisy Pastora PA Unavailable Unavailable Santos, Daisy Pastora PA Unavailable Unavailable Santos, Daisy Pastora PA Unavailable Unavailable Santos, Daisy Pastora PA Unavailable Unavailable Santos, Daisy Pastora PA Unavailable Unavailable Santso, Daisy Pastora PA Unavailable Unavailable Santos, Daisy Pastora PA Unavailable Unavailable Santos, Daisy Pastora PA Unavailable Unavailable Santos, Daisy Pastora PA Unavailable Unavailable LANI, M MARLON PA Unavailable Unavailable LANI, M MARLON PA Unavailable Unavailable LANI, M MARLON PA Unavailable Unavailable LANI, M MARLON PA Unavailable Unavailable LANI, M MARLON PA Unavailable Unavailable LANI, M MARLON PA Unavailable Unavailable LANI, M MARLON PA Unavailable Unavailable LANI, M MARLON PA Unavailable Unavailable LANI, M MARLON PA Unavailable Unavailable LANI, M MARLON PA Unavailable Unavailable LANI, M MARLON PA Unavailable Unavailable LANI, M MARLON PA Unavailable Unavailable LANI, M MARLON PA Unavailable Unavailable LANI, M MARLON PA Unavailable Unavailable LANI, M MARLON PA Unavailable Unavailable LANI, M MARLON PA Unavailable Unavailable LANI, M MARLON PA Unavailable Unavailable LANI, M MARLON PA Unavailable Unavailable LANI, M MARLON PA Unavailable Unavailable LANI, M MARLON PA Unavailable Unavailable LANI, M MARLON PA Unavailable Unavailable LANI, M MARLON PA Unavailable Unavailable LANI, M MARLON PA Unavailable Unavailable LANI, M MARLON PA Unavailable Unavailable Suryadevara, Jessie Unavailable Unavailable Suryadevara, Jessie Unavailable Unavailable Suryadevara, Jessie Unavailable Unavailable Suryadevara, Jessie Unavailable Unavailable Suryadevara, Jessie Unavailable Unavailable Suryadevara, Jessie Unavailable Unavailable Suryadevara, Jessie Unavailable Unavailable Re-disclosure Warning The records that you are about to access may contain information from federally-assisted alcohol or drug abuse programs. If such information is present, then the following federally mandated warning applies: This information has been disclosed to you from records protected by federal confidentiality rules (42 CFR part 2). The federal rules prohibit you from making any further disclosure of this information unless further disclosure is expressly permitted by the written consent of the person to whom it pertains or as otherwise permitted by 42 CFR part 2. A general authorization for the release of medical or other information is NOT sufficient for this purpose. The Federal rules restrict any use of the information to criminally investigate or prosecute any alcohol or drug abuse patient.The records that you are about to access may contain highly sensitive health information, the redisclosure of which is protected by Article 27-F of the [facility] Public Health law. If you continue you may have access to information: Regarding HIV / AIDS; Provided by facilities licensed or operated by the [facility] Office of Mental Health; or Provided by the [facility] Office for People With Developmental Disabilities. If such information is present, then the following [facility] mandated warning applies: This information has been disclosed to you from confidential records which are protected by state law. State law prohibits you from making any further disclosure of this information without the specific written consent of the person to whom it pertains, or as otherwise permitted by law. Any unauthorized further disclosure in violation of state law may result in a fine or long-term sentence or both. A general authorization for the release of medical or other information is NOT sufficient authorization for further disc losure. Allergies and Adverse Reactions Type Description Substance Reaction Status Data Source(s ) Drug Class NO KNOWN ALLERGIES NO KNOWN ALLERGIES [facility] Propensity to adverse reactions environmental Propensity to ad verse reactions Unknown Active eCW1 ([facility]) environmental environmental environmental Unknown Active eCW1 ([facility]) Allergy to substance Allergy to substance Allergy to substance SCOTTY ([facility]) Family History Family Member Name Family Member Gender Family Member Status Date o f Status Description Data Source(s) Unknown Unknown Problem [facility] Unknown Unknown Problem MEDENT ([facility] Encounters Encounter Providers Location Date Indications Data Source(s ) Outpatient Attender: TEAGAN CRUZ 07/24/2020 12:00:00 AM [facility] Office Visit Attender: Pastora basilio 05/21/2020 07:10:00 AM EST MEDENT ([facility]) MITZY FierroC: [address] [place] [id number], Ph. Attender: Denita OLIVARES [place] [facility] 04/28/2020 12:00:00 AM EST SCOTTY ([facility]) Outpatient Attender: Jessie Lopez Attender: TEAGAN Jayender: CRISTINO SCHMIDT [id number]: Prema ESTRADA [id number] 12:00:00 AM EDT - 01/25/2020 03:18:48 PM EDT Acne vulgaris [facility] spital Acne vulgaris Outpatient Attender: Prema EDWARDS 11/22/2019 05: 44:02 PM EDT [facility] Outpatient Attender: LUCILLE MINA MD 11/22/2019 12:00:00 AM [facility] Outpatient Attender: MARLON OLIVARES Physical Therapy 09/13 11:00:00 AM EDT MEDENT ([facility]) Outpatient Attender: Prema EDWARDS 09/29/2019 03: 48:02 PM EDT [facility] Outpatient Attender: MONIQUE EDWARDS 09/29/2019 03:46:02 PM EDT [address], [facility] [phone] 09/20/2019 12:00:00 AM EDT eCW1 ([facility]) Outpatient Attender: LUCILLE MINA MD 09/13/2019 12:00:00 AM [facility] Outpatient Attender: LUCILLE MINA MD 09/13/2019 12:00:00 AM [facility] Outpatient 09/08/2019 12:00:00 AM [facility] Outpatient Attender: LUCILLE MINA MD 09/08/2019 12:00:00 AM [facility] Outpatient Attender: MONIQUE EDWARDS 09/01/2019 12:25:01 PM EDT [facility] Outpatient Attender: MONIQUE Brown MONIQUE FP 08/05/2019 12:46:00 PM EDT [facility] Outpatient Attender: Prema Kevin AMAYA-BC FP 08/05/2019 12: 45:01 PM EDT [facility] Outpatient Attender: MONIQUE Brown SEASONAL GREENERY BUNDLER FP 08/05/2019 12:06:00 PM EDT [facility] Outpatient Attender: MONIQUE Brown MONIQUE FP 08/05/2019 12:04:01 PM EDT [facility] Outpatient Attender: MONIQUE Kevin AMAYA FP 08/05/2019 12:03:01 PM EDT [facility] Outpatient Attender: MONIQUE Kevin AMAYA FP 08/05/2019 10:11:00 AM EDT [facility] Outpatient Attender: Prema Kevin AMAYA-BC FP 08/05/2019 08: 54:01 AM EDT [facility] Outpatient Attender: SEASONAL GREENERY BUNDLERLatrice AMAYA FP 08/05/2019 08:31:01 AM EDT [facility] Outpatient Attender: HERNESTO MUÑOZ [facility] 07/13 10:30:00 AM EDT MEDENT ([facility] Outpatient Attender: CRISTINO SCHMIDT [id number] 07/23/2019 12:00: 00 AM [facility] Outpatient Attender: SEASONAL GREENERY BUNDLERLatrice AMAYA FP 06/18/2019 02:55:01 PM EST [address] [id number] 04/19/2019 12:00:00 AM EST eCW1 ([facility]) Medications Medication Brand Name Start Date Product Form Dose Route Admi nistrative Instructions Pharmacy Instructions Status Indications Reaction Description Data Source(s) Amoxicillin 500 MG Oral Capsule Amoxicillin 05/23/2020 12:00:00 AM EST ORAL active MEDENT ([facility] 500 mg 05/23/2020 12:00:00 AM EST capsule 21 TAKE ONE CAPSULE BY MOUTH THREE TIMES A DAY WITH FOOD TAKE ONE CAPSULE BY MOUTH THREE TIMES A DAY WITH FOOD SOLD: 05/23/2020 [facility] 2 mg 05/06/2020 12:00:00 AM EST tablet 30 TAKE ONE TABLET BY MOUTH AT BEDTIME DIRECTED TAKE ONE TABLET BY MOUTH AT BEDTIME DIRECTED SOLD: 05/06/2020 [facility] 25 mg 05/06/2020 12:00:00 AM EST tablet 60 TAKE ONE TABLET BY MOUTH TWICE A DAY TAKE ONE TABLET BY MOUTH TWICE A DAY SOLD: 05/06/2020 [facility] 10 mg 05/06/2020 12:00:00 AM EST tablet 30 TAKE ONE TABLET BY MOUTH AT BEDTIME DIRECTED TAKE ONE TABLET BY MOUTH AT BEDTIME DIRECTED SOLD: 05/06/2020 [facility] 24 HR Bupropion Hydrochloride 300 MG Extended Release Oral T ablet BUPROPION HCL 05/06/2020 12:00:00 AM EST tablet extended release 24 hr 30 TAKE ONE TABLET BY MOUTH EVERY DAY IN THE MORNING TAKE ONE TABLET BY MOUTH EVERY DAY IN MORNING SOLD: 05/06/2020 [facility] 50 mg 05/04/2020 12:00:00 AM EST tablet 20 TAKE ONE TABLET BY MOUTH AT BEDTIME NEEDED FOR SLEEP TAKE ONE TABLET BY MOUTH AT BEDTIME N EEDED FOR SLEEP SOLD: 05/06/2020 [facility] 1 % 04/24/2020 12:00:00 AM EST solution 30 APPLY TO AFFECTED AREA(S) TWO TIMES A DAY APPLY TO AFFECTED AREA(S) TWO TIMES A DAY SOLD: 04/27/2020 [facility] 1 % 04/24/2020 12:00:00 AM EST solution 30 APPLY TO AFFECTED AREA(S) TWO TIMES A DAY APPLY TO AFFECTED AREA(S) TWO TIMES A DAY SOLD: 05/18/2020 [facility] 10 mg 04/10/2020 12:00:00 AM EST tablet 30 TAKE ONE TABLET BY MOUTH EVERY DAY AT BEDTIME DIRECTED TAKE ONE TABLET BY MOUTH EVERY DAY AT BE DTIME DIRECTED SOLD: 04/10/2020 [facility] 50 mg 04/10/2020 12:00:00 AM EST tablet 20 TAKE ONE TABLET BY MOUTH AT BEDTIME NEEDED FOR SLEEP TAKE ONE TABLET BY MOUTH AT BEDTIME N EEDED FOR SLEEP SOLD: 04/10/2020 [facility] 25 mg 04/10/2020 12:00:00 AM EST tablet 60 TAKE ONE TABLET BY MOUTH TWICE A DAY TAKE ONE TABLET BY MOUTH TWICE A DAY SOLD: 04/10/2020 [facility] 15 mg 04/10/2020 12:00:00 AM EST tablet 30 TAKE ONE TABLET BY MOUTH EVERY DAY WITH FOOD OR MILK TAKE ONE TABLET BY MOUTH EVERY DAY WITH FOOD OR MILK S OLD: 04/10/2020 [facility] 24 HR Bupropion Hydrochloride 300 MG Extended Release Oral T ablet BUPROPION HCL 04/10/2020 12:00:00 AM EST tablet extended release 24 hr 30 TAKE ONE TABLET BY MOUTH EVERY DAY IN THE MORNING TAKE ONE TABLET BY MOUTH EVERY DAY IN MORNING SOLD: 04/10/2020 [facility] 2 mg 04/10/2020 12:00:00 AM EST tablet 30 TAKE ONE TABLET BY MOUTH EVERY DAY AT BEDTIME DIRECTED TAKE ONE TABLET BY MOUTH EVERY DAY AT [facility] DIRECTED SOLD: 04/10/2020 [facility] 15 mg 04/10/2020 12:00:00 AM EST tablet 30 TAKE ONE TABLET BY MOUTH EVERY DAY WITH FOOD OR MILK TAKE ONE TABLET BY MOUTH EVERY DAY WITH FOOD OR MILK S OLD: 05/23/2020 [facility] 25 mcg (1,000 unit) 03/29/2020 12:00:00 AM EST tablet 30 TAKE ONE TABLET BY MOUTH EVERY DAY TAKE ONE TABLET BY MOUTH EVERY DAY SOLD: 04/27/2020 [facility] 25 mcg (1,000 unit) 03/29/2020 12:00:00 AM EST tablet 30 TAKE ONE TABLET BY MOUTH EVERY DAY TAKE ONE TABLET BY MOUTH EVERY DAY SOLD: 03/29/2020 [facility] 25 mg 03/08/2020 12:00:00 AM EST tablet 60 TAKE ONE TABLET BY MOUTH TWICE A DAY TAKE ONE TABLET BY MOUTH TWICE A DAY SOLD: 03/10/2020 [facility] 24 HR Bupropion Hydrochloride 300 MG Extended Release Oral T ablet BUPROPION HCL 03/08/2020 12:00:00 AM EST tablet extended release 24 hr 30 TAKE ONE TABLET BY MOUTH EVERY MORNING TAKE ONE TABLET BY MOUTH EVERY MORNING SOLD: 03/10/2020 [facility] 2 mg 03/08/2020 12:00:00 AM EST tablet 30 TAKE ONE TABLET BY MOUTH AT BEDTIME DIRECTED TAKE ONE TABLET BY MOUTH AT BEDTIME DIRECTED SOLD: 03/10/2020 [facility] 10 mg 03/08/2020 12:00:00 AM EST tablet 30 TAKE ONE TABLET BY MOUTH AT BEDTIME DIRECTED TAKE ONE TABLET BY MOUTH AT BEDTIME DIRECTED SOLD: 03/10/2020 [facility] Cephalexin 500 MG Oral Capsule CEPHALEXIN 02/09/2020 12:00:00 AM EDT capsule 20 TAKE ONE CAPSULE BY MOUTH EVERY 12 HOURS TAKE ONE CAPS ULE BY MOUTH EVERY 12 HOURS SOLD: 02/10/2020 [facility] 10 mg 02/07/2020 12:00:00 AM EDT tablet 30 TAKE ONE TABLET BY MOUTH AT BEDTIME DIRECTED TAKE ONE TABLET BY MOUTH AT BEDTIME DIRECTED SOLD: 02/07/2020 [facility] 24 HR Bupropion Hydrochloride 300 MG Extended Release Oral T ablet BUPROPION HCL 02/05/2020 12:00:00 AM EDT tablet extended release 24 hr 30 TAKE ONE TABLET BY MOUTH EVERY DAY DIRECTED TAKE ONE TABLET BY MOUTH EVERY DAY DIRECTED SOLD: 02/05/2020 [facility] 25 mg 02/05/2020 12:00:00 AM EDT tablet 60 TAKE ONE TABLET BY MOUTH TWICE A DAY DIRECTED TAKE ONE TABLET BY MOUTH TWICE A DAY DIRECTED SOLD: 02/05/2020 [facility] 2 mg 02/05/2020 12:00:00 AM EDT tablet 30 TAKE ONE TABLET BY MOUTH AT BEDTIME DIRECTED TAKE ONE TABLET BY MOUTH AT BEDTIME DIRECTED SOLD: 02/05/2020 [facility] ammonium lactate 120 MG/ML Topical Lotio n Ammonium Lactate 12 % External Lotion (AmLactin) Ammonium Lactate 12 % External Lotion (AmLactin) 01/24 12:00:00 AM EDT active Xerosis cutisKeratosis p ilaris Apply to MOIST skin daily after showers. Avoid face and groin area. [facility] Xerosis cutis Keratosis pilaris Clindamycin 10 MG/ML Topical Solution Cl indamycin Phosphate 1 % External Solution (CLEOCIN T) Clindamycin Phosphate 1 % External Solution (CLEOCIN T ) 01/25/2020 12:00:00 AM EDT active Acne vulgaris Apply BID to AFFECTED AREAS [facility] Acne vulgaris 1 % 01/25/2020 12:00:00 AM EDT solution 30 APPLY TO AFFECTED AREA(S) TWO TIMES A DAY APPLY TO AFFECTED AREA(S) TWO TIMES A DAY SOLD: 03/26/2020 [facility] 1 % 01/25/2020 12:00:00 AM EDT solution 30 APPLY TO AFFECTED AREA(S) TWO TIMES A DAY APPLY TO AFFECTED AREA(S) TWO TIMES A DAY SOLD: 01/26/2020 [facility] 1 % 01/25/2020 12:00:00 AM EDT solution 30 APPLY TO AFFECTED AREA(S) TWO TIMES A DAY APPLY TO AFFECTED AREA(S) TWO TIMES A DAY SOLD: 04/10/2020 [facility] 1 % 01/25/2020 12:00:00 AM EDT solution 30 APPLY TO AFFECTED AREA(S) TWO TIMES A DAY APPLY TO AFFECTED AREA(S) TWO TIMES A DAY SOLD: 03/10/2020 [facility] 1 % 01/25/2020 12:00:00 AM EDT solution 30 APPLY TO AFFECTED AREA(S) TWO TIMES A DAY APPLY TO AFFECTED AREA(S) TWO TIMES A DAY SOLD: 02/10/2020 [facility] 1 % 01/25/2020 12:00:00 AM EDT solution 30 APPLY TO AFFECTED AREA(S) TWO TIMES A DAY APPLY TO AFFECTED AREA(S) TWO TIMES A DAY SOLD: 02/22/2020 [facility] valacyclovir 500 MG Oral Tablet valACYclovir HCl 500 M G Oral Tablet (VALTREX) valACYclovir HCl 500 MG Oral Tablet (VALTREX) 01/18/2020 12:00:00 AM EDT active [facility] 10 mg 01/12/2020 12:00:00 AM EDT tablet 30 TAKE ONE TABLET BY MOUTH AT BEDTIME DIRECTED TAKE ONE TABLET BY MOUTH AT BEDTIME DIRECTED SOLD: 01/13/2020 [facility] 50 mg 01/10/2020 12:00:00 AM EDT tablet 20 TAKE ONE TABLET BY MOUTH AT BEDTIME NEEDED FOR SLEEP TAKE ONE TABLET BY MOUTH AT BEDTIME N EEDED FOR SLEEP SOLD: 01/10/2020 [facility] 2 mg 01/10/2020 12:00:00 AM EDT tablet 30 TAKE ONE TABLET BY MOUTH AT BEDTIME DIRECTED TAKE ONE TABLET BY MOUTH AT BEDTIME DIRECTED SOLD: 01/10/2020 [facility] 24 HR Bupropion Hydrochloride 300 MG Extended Release Oral T ablet BUPROPION HCL 01/10/2020 12:00:00 AM EDT tablet extended release 24 hr 30 TAKE ONE TABLET BY MOUTH EVERY DAY DIRECTED TAKE ONE TABLET BY MOUTH EVERY DAY DIRECTED SOLD: 01/10/2020 [facility] 25 mg 01/10/2020 12:00:00 AM EDT tablet 60 TAKE ONE TABLET BY MOUTH TWICE A DAY DIRECTED TAKE ONE TABLET BY MOUTH TWICE A DAY DIRECTED SOLD: 01/10/2020 [facility] 2 mg 12/04/2019 12:00:00 AM EDT tablet 30 TAKE ONE TABLET BY MOUTH AT BEDTIME DIRECTED TAKE ONE TABLET BY MOUTH AT BEDTIME DIRECTED SOLD: 12/06/2019 [facility] 25 mg 12/04/2019 12:00:00 AM EDT tablet 60 TAKE ONE TABLET BY MOUTH TWICE A DAY DIRECTED TAKE ONE TABLET BY MOUTH TWICE A DAY DIRECTED SOLD: 12/06/2019 [facility] 10 mg 12/03/2019 12:00:00 AM EDT tablet 30 TAKE ONE TABLET BY MOUTH AT BEDTIME DIRECTED TAKE ONE TABLET BY MOUTH AT BEDTIME DIRECTED SOLD: 12/06/2019 [facility] 24 HR Bupropion Hydrochloride 300 MG Extended Release Oral T ablet BUPROPION HCL 12/03/2019 12:00:00 AM EDT tablet extended release 24 hr 30 TAKE ONE TABLET BY MOUTH EVERY DAY DIRECTED TAKE ONE TABLET BY MOUTH EVERY DAY DIRECTED SOLD: 12/06/2019 [facility] Metronidazole 500 MG Oral Tablet METRONIDAZOLE 12/02/2019 12:0 0:00 AM EDT tablet 21 TAKE ONE TABLET BY MOUTH THREE T IMES A DAY FOR 7 DAYS TAKE ONE TABLET BY MOUTH THREE TIMES A DAY FOR 7 DAYS SOLD: 12/02/2019 [facility] 90 mcg/actuation 11/22/2019 12:00:00 AM EDT HFA aerosol inha ler 18 USE 2 PUFFS BY MOUTH EVERY 4 HOURS NEEDED FOR SHORTNESS OF BREATH OR WHEEZING USE 2 PUFFS BY MOUTH EVERY 4 HOURS NEEDED FOR SHORTNESS OF BREATH OR WHEEZING SOLD: 11/24/2019 [facility] 300 mg 11/05/2019 12:00:00 AM EDT tablet extended release 24 hr 30 TAKE ONE TABLET BY MOUTH EVERY MORNING TAKE ONE TABLET BY MOUTH EVERY MORNING SOLD: 11/05/2019 [facility] 10 mg 11/05/2019 12:00:00 AM EDT tablet 30 TAKE ONE TABLET BY MOUTH EVERY NIGHT TAKE ONE TABLET BY MOUTH EVERY NIGHT SOLD: 11/05/2019 [facility] 25 mg 11/05/2019 12:00:00 AM EDT tablet 60 TAKE ONE TABLET BY MOUTH TWO TIMES A DAY TAKE ONE TABLET BY MOUTH TWO TIMES A DAY SOLD: 11/05/2019 [facility] 2 mg 11/04/2019 12:00:00 AM EDT tablet 30 TAKE ONE TABLET BY MOUTH EVERY NIGHT TAKE ONE TABLET BY MOUTH EVERY NIGHT SOLD: 11/05/2019 [facility] 25 mcg (1,000 unit) 10/27/2019 12:00:00 AM EDT capsule 30 TAKE 1 CAPSULE BY MOUTH ONCE DAILY TAKE 1 CAPSULE BY MOUTH ONCE DAILY SOLD: 01/29/2020 [facility] 25 mcg (1,000 unit) 10/27/2019 12:00:00 AM EDT capsule 30 TAKE 1 CAPSULE BY MOUTH ONCE DAILY TAKE 1 CAPSULE BY MOUTH ONCE DAILY SOLD: 01/01/2020 [facility] 25 mcg (1,000 unit) 10/27/2019 12:00:00 AM EDT capsule 30 TAKE 1 CAPSULE BY MOUTH ONCE DAILY TAKE 1 CAPSULE BY MOUTH ONCE DAILY SOLD: 11/30/2019 [facility] 25 mcg (1,000 unit) 10/27/2019 12:00:00 AM EDT capsule 30 TAKE 1 CAPSULE BY MOUTH ONCE DAILY TAKE 1 CAPSULE BY MOUTH ONCE DAILY SOLD: 10/28/2019 [facility] 0.3 % 10/19/2019 12:00:00 AM EDT drops 5 INSTILL 1 DROP IN THE RIGHT EYE FOUR TIMES A DAY INSTILL 1 DROP IN THE RIGHT EYE FOUR TIMES A DAY SOLD: 10/21/2019 [facility] 90 mcg/actuation 09/29/2019 12:00:00 AM EDT HFA aerosol inha ler 18 INHALE TWO PUFFS BY MOUTH EVERY 4 HOURS NEEDED WHEEZING OR FOR SHORTNESS OF BREATH INHALE TWO PUFFS BY MOUTH EVERY 4 HOURS NEEDED WHEEZING OR FOR SHORTNESS OF BREATH SOLD: 10/18/2019 [facility] 90 mcg/actuation 09/29/2019 12:00:00 AM EDT HFA aerosol inha ler 18 INHALE TWO PUFFS BY MOUTH EVERY 4 HOURS NEEDED WHEEZING OR FOR SHORTNESS OF BREATH INHALE TWO PUFFS BY MOUTH EVERY 4 HOURS NEEDED WHEEZING OR FOR SHORTNESS OF BREATH SOLD: 09/29/2019 [facility] 15 mg 09/27/2019 12:00:00 AM EDT tablet 30 TAKE ONE TABLET BY MOUTH EVERY DAY WITH FOOD OR MILK TAKE ONE TABLET BY MOUTH EVERY DAY WITH FOOD OR MILK S OLD: 01/01/2020 [facility] 15 mg 09/27/2019 12:00:00 AM EDT tablet 30 TAKE ONE TABLET BY MOUTH EVERY DAY WITH FOOD OR MILK TAKE ONE TABLET BY MOUTH EVERY DAY WITH FOOD OR MILK S OLD: 10/28/2019 [facility] 15 mg 09/27/2019 12:00:00 AM EDT tablet 30 TAKE ONE TABLET BY MOUTH EVERY DAY WITH FOOD OR MILK TAKE ONE TABLET BY MOUTH EVERY DAY WITH FOOD OR MILK S OLD: 03/10/2020 [facility] 15 mg 09/27/2019 12:00:00 AM EDT tablet 30 TAKE ONE TABLET BY MOUTH EVERY DAY WITH FOOD OR MILK TAKE ONE TABLET BY MOUTH EVERY DAY WITH FOOD OR MILK S OLD: 11/30/2019 [facility] 15 mg 09/27/2019 12:00:00 AM EDT tablet 30 TAKE ONE TABLET BY MOUTH EVERY DAY WITH FOOD OR MILK TAKE ONE TABLET BY MOUTH EVERY DAY WITH FOOD OR MILK S OLD: 02/05/2020 [facility] 15 mg 09/27/2019 12:00:00 AM EDT tablet 30 TAKE ONE TABLET BY MOUTH EVERY DAY WITH FOOD OR MILK TAKE ONE TABLET BY MOUTH EVERY DAY WITH FOOD OR MILK S OLD: 09/29/2019 [facility] 25 mg 09/25/2019 12:00:00 AM EDT tablet 60 TAKE ONE TABLET BY MOUTH TWICE A DAY TAKE ONE TABLET BY MOUTH TWICE A DAY SOLD: 09/27/2019 [facility] 10 mg 09/25/2019 12:00:00 AM EDT tablet 30 TAKE 1 TABLET BY MOUTH EVERY NIGHT TAKE 1 TABLET BY MOUTH EVERY NIGHT SOLD: 09/27/2019 [facility] 300 mg 09/25/2019 12:00:00 AM EDT tablet extended release 24 hr 30 TAKE ONE TABLET BY MOUTH EVERY MORNING TAKE ONE TABLET BY MOUTH EVERY MORNING SOLD: 09/27/2019 [facility] 2 mg 09/25/2019 12:00:00 AM EDT tablet 30 TAKE 1 TABLET BY MOUTH EVERY NIGHT TAKE 1 TABLET BY MOUTH EVERY NIGHT SOLD: 09/27/2019 [facility] 500 mg 09/22/2019 12:00:00 AM EDT tablet 30 TAKE ONE TABLET BY MOUTH EVERY DAY TAKE ONE TABLET BY MOUTH EVERY DAY SOLD: 09/22/2019 [facility] 500 mg 09/22/2019 12:00:00 AM EDT tablet 30 TAKE ONE TABLET BY MOUTH EVERY DAY TAKE ONE TABLET BY MOUTH EVERY DAY SOLD: 04/22/2020 [facility] 500 mg 09/22/2019 12:00:00 AM EDT tablet 30 TAKE ONE TABLET BY MOUTH EVERY DAY TAKE ONE TABLET BY MOUTH EVERY DAY SOLD: 05/18/2020 [facility] 500 mg 09/22/2019 12:00:00 AM EDT tablet 30 TAKE ONE TABLET BY MOUTH EVERY DAY TAKE ONE TABLET BY MOUTH EVERY DAY SOLD: 11/19/2019 [facility] 500 mg 09/22/2019 12:00:00 AM EDT tablet 30 TAKE ONE TABLET BY MOUTH EVERY DAY TAKE ONE TABLET BY MOUTH EVERY DAY SOLD: 10/21/2019 [facility] 500 mg 09/22/2019 12:00:00 AM EDT tablet 30 TAKE ONE TABLET BY MOUTH EVERY DAY TAKE ONE TABLET BY MOUTH EVERY DAY SOLD: 02/22/2020 [facility] 500 mg 09/22/2019 12:00:00 AM EDT tablet 30 TAKE ONE TABLET BY MOUTH EVERY DAY TAKE ONE TABLET BY MOUTH EVERY DAY SOLD: 01/22/2020 [facility] 500 mg 09/22/2019 12:00:00 AM EDT tablet 30 TAKE ONE TABLET BY MOUTH EVERY DAY TAKE ONE TABLET BY MOUTH EVERY DAY SOLD: 03/20/2020 [facility] 500 mg 09/22/2019 12:00:00 AM EDT tablet 30 TAKE ONE TABLET BY MOUTH EVERY DAY TAKE ONE TABLET BY MOUTH EVERY DAY SOLD: 12/23/2019 [facility] valacyclovir 500 MG Oral Tablet [Valtrex] Valtrex 500 MG Yoselin trex 500 MG 09/21/2019 12:00:00 AM EDT 1.0 {tablet} active Valtrex 500 MG eCW1 ([facility]) 300 mg 09/01/2019 12:00:00 AM EDT tablet extended release 24 hr 30 TAKE ONE TABLET BY MOUTH EVERY MORNING TAKE ONE TABLET BY MOUTH EVERY MORNING SOLD: 09/01/2019 [facility] 10 mg 09/01/2019 12:00:00 AM EDT tablet 30 TAKE ONE TABLET BY MOUTH EVERY EVENING TAKE ONE TABLET BY MOUTH EVERY EVENING SOLD: 09/01/2019 [facility] 25 mg 09/01/2019 12:00:00 AM EDT tablet 60 TAKE ONE TABLET BY MOUTH TWICE A DAY TAKE ONE TABLET BY MOUTH TWICE A DAY SOLD: 09/01/2019 [facility] 10 mg 09/01/2019 12:00:00 AM EDT tablet 15 TAKE ONE TABLET BY MOUTH EVERY DAY NEEDED FOR ANXIETY TAKE ONE TABLET BY MOUTH EVERY DAY NE EDED FOR ANXIETY SOLD: 09/01/2019 [facility] 2 mg 09/01/2019 12:00:00 AM EDT tablet 30 TAKE ONE TABLET BY MOUTH EVERY EVENING TAKE ONE TABLET BY MOUTH EVERY EVENING SOLD: 09/01/2019 [facility] 50 mg 09/01/2019 12:00:00 AM EDT tablet 20 TAKE ONE TABLET BY MOUTH AT BEDTIME NEEDED FOR SLEEP TAKE ONE TABLET BY MOUTH AT BEDTIME N EEDED FOR SLEEP SOLD: 09/01/2019 [facility] 10 mg 08/24/2019 12:00:00 AM EDT tablet 20 TAKE ONE TABLET BY MOUTH TWICE A DAY NEEDED ANXIETY TAKE ONE TABLET BY MOUTH TWICE A DAY NEEDED ANXIETY SOLD: 08/27/2019 [facility] 14 mg/24 hr 08/22/2019 12:00:00 AM EDT patch 24 hour 28 APPLY 1 PATCH DAILY DIRECTED APPLY 1 PATCH DAILY DIRECTED SOLD: 08/31/2019 [facility] 10 mg 08/22/2019 12:00:00 AM EDT tablet 10 TAKE ONE TABLET BY MOUTH TWICE A DAY FOR ANXIETY TAKE ONE TABLET BY MOUTH TWICE A DAY FOR ANXIETY SOLD: 08/22/2019 [facility] 25 mg 08/05/2019 12:00:00 AM EDT tablet 60 TAKE ONE TABLET BY MOUTH TWICE A DAY TAKE ONE TABLET BY MOUTH TWICE A DAY SOLD: 08/05/2019 [facility] 50 mg 08/05/2019 12:00:00 AM EDT tablet 20 TAKE ONE TABLET BY MOUTH AT BEDTIME NEEDED FOR SLEEP TAKE ONE TABLET BY MOUTH AT BEDTIME N EEDED FOR SLEEP SOLD: 08/05/2019 [facility] 25 mcg (1,000 unit) 08/05/2019 12:00:00 AM EDT tablet 30 TAKE ONE TABLET BY MOUTH EVERY DAY TAKE ONE TABLET BY MOUTH EVERY DAY SOLD: 11/30/2019 [facility] 25 mcg (1,000 unit) 08/05/2019 12:00:00 AM EDT tablet 30 TAKE ONE TABLET BY MOUTH EVERY DAY TAKE ONE TABLET BY MOUTH EVERY DAY SOLD: 09/29/2019 [facility] 25 mcg (1,000 unit) 08/05/2019 12:00:00 AM EDT tablet 30 TAKE ONE TABLET BY MOUTH EVERY DAY TAKE ONE TABLET BY MOUTH EVERY DAY SOLD: 09/01/2019 [facility] 25 mcg (1,000 unit) 08/05/2019 12:00:00 AM EDT tablet 30 TAKE ONE TABLET BY MOUTH EVERY DAY TAKE ONE TABLET BY MOUTH EVERY DAY SOLD: 08/05/2019 [facility] 300 mg 08/05/2019 12:00:00 AM EDT tablet extended release 24 hr 30 TAKE ONE TABLET BY MOUTH EVERY MORNING TAKE ONE TABLET BY MOUTH EVERY MORNING SOLD: 08/05/2019 [facility] 25 mcg (1,000 unit) 08/05/2019 12:00:00 AM EDT tablet 30 TAKE ONE TABLET BY MOUTH EVERY DAY TAKE ONE TABLET BY MOUTH EVERY DAY SOLD: 01/01/2020 [facility] 10 mg 08/05/2019 12:00:00 AM EDT tablet 30 TAKE 1 TABLET BY MOUTH EVERY NIGHT TAKE 1 TABLET BY MOUTH EVERY NIGHT SOLD: 08/05/2019 [facility] 25 mcg (1,000 unit) 08/05/2019 12:00:00 AM EDT tablet 30 TAKE ONE TABLET BY MOUTH EVERY DAY TAKE ONE TABLET BY MOUTH EVERY DAY SOLD: 10/28/2019 [facility] 2 mg 08/05/2019 12:00:00 AM EDT tablet 30 TAKE 1 TABLET BY MOUTH EVERY NIGHT TAKE 1 TABLET BY MOUTH EVERY NIGHT SOLD: 08/05/2019 [facility] 500 mg 07/27/2019 12:00:00 AM EDT capsule 14 TAKE ONE CAPSULE BY MOUTH TWICE A DAY TAKE ONE CAPSULE BY MOUTH TWICE A DAY SOLD: 07/27/2019 [facility] 2 mg 07/08/2019 12:00:00 AM EDT tablet 30 TAKE 1 TABLET BY MOUTH EVERY NIGHT TAKE 1 TABLET BY MOUTH EVERY NIGHT SOLD: 07/08/2019 [facility] 10 mg 07/08/2019 12:00:00 AM EDT tablet 30 TAKE 1 TABLET BY MOUTH EVERY NIGHT TAKE 1 TABLET BY MOUTH EVERY NIGHT SOLD: 07/08/2019 [facility] 300 mg 07/08/2019 12:00:00 AM EDT tablet extended release 24 hr 30 TAKE ONE TABLET BY MOUTH EVERY MORNING TAKE ONE TABLET BY MOUTH EVERY MORNING SOLD: 07/08/2019 [facility] 25 mg 07/08/2019 12:00:00 AM EDT tablet 60 TAKE ONE TABLET BY MOUTH TWICE A DAY TAKE ONE TABLET BY MOUTH TWICE A DAY SOLD: 07/08/2019 [facility] 300 mg 06/22/2019 12:00:00 AM EDT tablet extended release 24 hr 30 TAKE ONE TABLET BY MOUTH EVERY MORNING TAKE ONE TABLET BY MOUTH EVERY MORNING SOLD: 06/23/2019 [facility] 50 mg 06/10/2019 12:00:00 AM EST tablet 20 TAKE ONE TABLET BY MOUTH AT BEDTIME NEEDED FOR SLEEP TAKE ONE TABLET BY MOUTH AT BEDTIME N EEDED FOR SLEEP SOLD: 06/13/2019 [facility] 25 mg 06/09/2019 12:00:00 AM EST tablet 60 TAKE ONE TABLET BY MOUTH TWICE A DAY TAKE ONE TABLET BY MOUTH TWICE A DAY SOLD: 06/09/2019 [facility] 10 mg 06/09/2019 12:00:00 AM EST tablet 30 TAKE 1 TABLET BY MOUTH EVERY NIGHT TAKE 1 TABLET BY MOUTH EVERY NIGHT SOLD: 06/09/2019 [facility] 2 mg 06/09/2019 12:00:00 AM EST tablet 30 TAKE 1 TABLET BY MOUTH EVERY NIGHT TAKE 1 TABLET BY MOUTH EVERY NIGHT SOLD: 06/09/2019 [facility] 300 mg 05/28/2019 12:00:00 AM EST tablet extended release 24 hr 30 TAKE ONE TABLET BY MOUTH EVERY DAY IN THE MORNING TAKE ONE TABLET BY MOUTH EVERY DAY IN THE MORNING SOLD: 06/01/2019 [facility] 14 mg/24 hr 05/24/2019 12:00:00 AM EST patch 24 hour 28 APPLY 1 PATCH DAILY DIRECTED APPLY 1 PATCH DAILY DIRECTED SOLD: 07/21/2019 [facility] 50 mg 05/24/2019 12:00:00 AM EST tablet 20 TAKE ONE TABLET BY MOUTH AT BEDTIME NEEDED FOR SLEEP TAKE ONE TABLET BY MOUTH AT BEDTIME N EEDED FOR SLEEP SOLD: 05/24/2019 [facility] 14 mg/24 hr 05/24/2019 12:00:00 AM EST patch 24 hour 28 APPLY 1 PATCH DAILY DIRECTED APPLY 1 PATCH DAILY DIRECTED SOLD: 06/26/2019 [facility] 14 mg/24 hr 05/24/2019 12:00:00 AM EST patch 24 hour 28 APPLY 1 PATCH DAILY DIRECTED APPLY 1 PATCH DAILY DIRECTED SOLD: 05/24/2019 [facility] 2 mg 05/06/2019 12:00:00 AM EST tablet 30 TAKE ONE TABLET BY MOUTH EVERY EVENING TAKE ONE TABLET BY MOUTH EVERY EVENING SOLD: 05/07/2019 [facility] 25 mg 05/06/2019 12:00:00 AM EST tablet 60 TAKE ONE TABLET BY MOUTH TWICE A DAY TAKE ONE TABLET BY MOUTH TWICE A DAY SOLD: 05/07/2019 [facility] 50 mg 04/28/2019 12:00:00 AM EST tablet 20 TAKE ONE TABLET BY MOUTH EVERY EVENING AT BEDTIME NEEDED FOR SLEEP TAKE ONE TABLET BY MOUTH EVERY EVENING A T BEDTIME NEEDED FOR SLEEP SOLD: 04/29/2019 [facility] 10 mg 04/28/2019 12:00:00 AM EST tablet 30 TAKE ONE TABLET BY MOUTH EVERY EVENING TAKE ONE TABLET BY MOUTH EVERY EVENING SOLD: 04/29/2019 [facility] 300 mg 04/28/2019 12:00:00 AM EST tablet extended release 24 hr 30 TAKE ONE TABLET BY MOUTH EVERY MORNING TAKE ONE TABLET BY MOUTH EVERY MORNING SOLD: 04/29/2019 [facility] Metronidazole 500 MG Oral Tablet Metronidazole 500 MG 2019 12:00:00 AM EST active 1 tablet eCW1 ([facility]) Metronidazole 500 MG Oral Tablet Metronidazole 500 MG 2019 12:00:00 AM EST 1.0 {tablet} active Metronidazo le 500 MG eCW1 ([facility]) 500 mg 04/19/2019 12:00:00 AM EST tablet 14 TAKE 1 TABLET BY MOUTH TWO TIMES A DAY TAKE 1 TABLET BY MOUTH TWO TIMES A DAY SOLD: 04/19/2019 [facility] 500 mg 04/15/2019 12:00:00 AM EST capsule 14 TAKE ONE CAPSULE BY MOUTH TWICE A DAY TAKE ONE CAPSULE BY MOUTH TWICE A DAY SOLD: 04/15/2019 [facility] Cephalexin 500 MG Oral Tablet Cephalexin 04/15/2019 12:00:00 AM EST ORAL active MEDENT ([facility] 2 mg 04/10/2019 12:00:00 AM EST tablet 30 TAKE ONE TABLET BY MOUTH IN THE EVENING TAKE ONE TABLET BY MOUTH IN THE EVENING SOLD: 04/10/2019 [facility] 25 mg 04/10/2019 12:00:00 AM EST tablet 60 TAKE ONE TABLET BY MOUTH TWICE A DAY TAKE ONE TABLET BY MOUTH TWICE A DAY SOLD: 04/10/2019 [facility] 15 mg 04/06/2019 12:00:00 AM EST tablet 30 TAKE ONE TABLET BY MOUTH EVERY DAY WITH FOOD OR MILK TAKE ONE TABLET BY MOUTH EVERY DAY WITH FOOD OR MILK S OLD: 04/10/2019 [facility] 300 mg 03/29/2019 12:00:00 AM EST tablet extended release 24 hr 30 TAKE 1 TABLET BY MOUTH EVERY MORNING TAKE 1 TABLET BY MOUTH EVERY MORNING SOLD: 03/31/2019 [facility] 10 mg 03/27/2019 12:00:00 AM EST tablet 30 TAKE 1 TABLET BY MOUTH EVERY NIGHT TAKE 1 TABLET BY MOUTH EVERY NIGHT SOLD: 03/31/2019 [facility] 25 mcg (1,000 unit) 03/22/2019 12:00:00 AM EST capsule 30 TAKE ONE CAPSULE BY MOUTH EVERY DAY TAKE ONE CAPSULE BY MOUTH EVERY DAY SOLD: 05/15/2019 [facility] 20 % 03/22/2019 12:00:00 AM EST cream 85 APPLY TO CALLUS ON FEET DAILY APPLY TO CALLUS ON FEET DAILY SOLD: 05/20/2019 [facility] 25 mcg (1,000 unit) 03/22/2019 12:00:00 AM EST capsule 30 TAKE ONE CAPSULE BY MOUTH EVERY DAY TAKE ONE CAPSULE BY MOUTH EVERY DAY SOLD: 08/05/2019 [facility] 25 mcg (1,000 unit) 03/22/2019 12:00:00 AM EST capsule 30 TAKE ONE CAPSULE BY MOUTH EVERY DAY TAKE ONE CAPSULE BY MOUTH EVERY DAY SOLD: 08/31/2019 [facility] 20 % 03/22/2019 12:00:00 AM EST cream 85 APPLY TO CALLUS ON FEET DAILY APPLY TO CALLUS ON FEET DAILY SOLD: 04/19/2019 [facility] 25 mcg (1,000 unit) 03/22/2019 12:00:00 AM EST capsule 30 TAKE ONE CAPSULE BY MOUTH EVERY DAY TAKE ONE CAPSULE BY MOUTH EVERY DAY SOLD: 09/29/2019 [facility] 25 mcg (1,000 unit) 03/22/2019 12:00:00 AM EST capsule 30 TAKE ONE CAPSULE BY MOUTH EVERY DAY TAKE ONE CAPSULE BY MOUTH EVERY DAY SOLD: 07/08/2019 [facility] 15 mg 03/12/2019 12:00:00 AM EST tablet 30 TAKE ONE TABLET BY MOUTH EVERY DAY WITH FOOD OR MILK TAKE ONE TABLET BY MOUTH EVERY DAY WITH FOOD OR MILK S OLD: 07/01/2019 [facility] 15 mg 03/12/2019 12:00:00 AM EST tablet 30 TAKE ONE TABLET BY MOUTH EVERY DAY WITH FOOD OR MILK TAKE ONE TABLET BY MOUTH EVERY DAY WITH FOOD OR MILK S OLD: 06/04/2019 [facility] 15 mg 03/12/2019 12:00:00 AM EST tablet 30 TAKE ONE TABLET BY MOUTH EVERY DAY WITH FOOD OR MILK TAKE ONE TABLET BY MOUTH EVERY DAY WITH FOOD OR MILK S OLD: 08/05/2019 [facility] 15 mg 03/12/2019 12:00:00 AM EST tablet 30 TAKE ONE TABLET BY MOUTH EVERY DAY WITH FOOD OR MILK TAKE ONE TABLET BY MOUTH EVERY DAY WITH FOOD OR MILK S OLD: 05/07/2019 [facility] 15 mg 03/12/2019 12:00:00 AM EST tablet 30 TAKE ONE TABLET BY MOUTH EVERY DAY WITH FOOD OR MILK TAKE ONE TABLET BY MOUTH EVERY DAY WITH FOOD OR MILK S OLD: 08/31/2019 [facility] 25 mcg (1,000 unit) 01/01/2019 12:00:00 AM EDT capsule 30 TAKE ONE CAPSULE BY MOUTH EVERY DAY TAKE ONE CAPSULE BY MOUTH EVERY DAY SOLD: 04/19/2019 [facility] 25 mcg (1,000 unit) 01/01/2019 12:00:00 AM EDT capsule 30 TAKE ONE CAPSULE BY MOUTH EVERY DAY TAKE ONE CAPSULE BY MOUTH EVERY DAY SOLD: 06/09/2019 [facility] 25 mcg (1,000 unit) 01/01/2019 12:00:00 AM EDT capsule 30 TAKE ONE CAPSULE BY MOUTH EVERY DAY TAKE ONE CAPSULE BY MOUTH EVERY DAY SOLD: 07/08/2019 [facility] Cephalexin 500 MG Oral Capsule cephalexi n 500 mg capsule TAKE ONE CAPSULE BY MOUTH EVERY 12 HOURS cephalexin 500 mg capsule TAKE ONE CAPSU LE BY MOUTH EVERY 12 HOURS completed cephalexin 50 0 MG Oral Capsule [place] ([facility]) Emergen-C completed Emergen-C [place] ([facility]) Fluarix Quad (PF) 60 mcg (15 m cg x 4)/0.5 mL IM syringe ADMINISTER 0.5ML IN THE MUSCLE DIRECTED [id number] compl eted 0.5 ML influenza A virus A/[facility]/[id number] (H1N1) antigen 0.03 MG/ML / influenza A virus A/[facility] (H3N2) antigen 0.03 MG/ML / influenza B virus B/[facility] antigen 0.03 MG/ML / influenza B virus B/ antigen 0.03 MG/ML Prefilled Syringe [Fluarix Quadrivalent ] [place] ([facility]) Cholecalciferol 1000 UNT Oral Tablet cho lecalciferol (vitamin D3) 25 mcg (1,000 unit) tablet TAKE ONE TABLET BY MOUTH EVERY DAY cholecalciferol (vitamin D3) 25 mcg (1,000 unit) tablet TAKE ONE TABLET BY MOUTH EVERY DAY completed cholecalciferol 0.025 MG Oral Ta blet [facility] ([facility]) Hydroxyzine Hydrochloride 10 MG Oral Tablet hydroxyzin e HCl 10 mg tablet hydroxyzine HCl 10 mg tablet completed hydroxyzine hydrochloride 10 MG Oral Tablet [facility] ([facility]) Ciprofloxacin 3 MG/ML Ophthalmic Solution ciprofloxaci n 0.3 % eye drops ciprofloxacin 0.3 % eye drops complete d ciprofloxacin 3 MG/ML Ophthalmic Solution [place] ([facility]) Cholecalciferol 1000 UNT Oral Capsule Vi tamin D3 25 mcg (1,000 unit) capsule TAKE 1 CAPSULE BY MOUTH ONCE DAILY Vitamin D3 25 mcg (1,000 unit) capsule T JUANY 1 CAPSULE BY MOUTH ONCE DAILY completed cholecalciferol 0.025 MG Oral Capsule [place] ([facility]) Metronidazole 500 MG Oral Tablet metroni dazole 500 mg tablet TAKE ONE TABLET BY MOUTH THREE TIMES A DAY FOR 7 DAYS metronidazole 500 mg tablet TAKE ONE TAB LET BY MOUTH THREE TIMES A DAY FOR 7 DAYS completed metronidazole 500 MG Oral Tablet [facility] ([facility]) d3-1000 25 mcg (1000 ut) caps c ompleted d3-1000 25 mcg (1000 ut) caps [place] ([facility]) alfalfa completed alfalfa ATHE NA ([facility]) Insurance Providers Payer name Policy type / Coverage type Policy ID Covered alliance party ID Covered alliance party's relationship to collins Policy [place] Plan Information MEDICARE [id number] SP [id number] [facility] COMMUNITY PLAN MCDO [id number] SP [id number] SELF PAY ONLY [id number] SP [id number] [facility] RAISA [id number] SP [id number] [facility] I [id number] Self [id number] MEDICAID M [id number] Self [id number] [facility] I [id number] Self [id number] Managed Care - [facility] Community Plan P [id number] S [id number] Medicaid S [id number] S [id number] [facility] RAISA [id number] SP [id number] [facility] RAISA [id number] SP [id number] Managed Care - [facility] Community Plan P [id number] S [id number] Medicaid S [id number] S [id number] UNITED HEALTHCARE(MCAID) O [id number] S [id number] [facility](MCAID) O [id number] S [id number] [employer] COMMUNITY PLAN MCDHMO [id number] SP [id number] MEDICAID [id number] SP [id number] MEDICAID M [id number] S [id number] [employer]CE[employer] BCBS B [id number] [place] [id number] Self [id number] MEDICAID M [id number] Self [id number] [place] Medicaid [id number] Self [id number] AETNA [id number] SP [id number] [place] P[place] 302/307 [id number] SP [id number] [place] P[place] 302/307 [id number] SP [id number] [place] PPO 302/307 [id number] SP [id number] Medicaid [place] Medicaid [id number] Self [id number] Medicaid [place] [id number] Self [id number] BLUE CROSS [id number] SP [id number] [place] [id number] SP [id number] BLUE CROSS UNAVAILABLE UNAVAIL ABLE BLUE CARD C [id number] Self [id number] SELF PAY ONLY NONE SP NONE BLUE CARD C [id number] Self [id number] [place] PPO 302/307 [id number] SP [id number] [employer] Health Maintenance Organization (HMO) [id number] Self [id number] [employer] Health Maintenance Organization (HMO) [id number] Self [id number] [place] PPO 302/307 [id number] SP [id number] MEDICAID M [id number] Self [id number] [employer] Health Maintenance Organization (HMO) [id number] Self [id number] [place] PPO 302/307 [id number] SP [id number] [employer] Health Maintenance Organization (HMO) [id number] Self [id number] UHC [id number] Self [id number] [place] PPO 302/307 [id number] SP [id number] UHC [id number] Self [id number] [facility] Raisa/MCR Health Maintenance Organization (HMO) [id number] Self [id number] UN[employer] COMMUNITY PLAN MCDO [id number] SP [id number] [facility] [id number] SP [id number] [facility](MCAID) O [id number] S [id number] MVP H [id number] Self [id number] [employer] PHY [id number] SP [id number] [facility] Community Plan Medigap Part B Self BC/[place] Commercial Self MEDICAID M [id number] Self [id number] EXCELLUS I [id number] Self [id number] BLUE CHOICE OPTION O [id number] S [id number] MEDICAID W [id number] S [id number] BLUE CHOICE OPTION UNAVAILABLE UNAVAILABLE BLUE CROSS NUNN PLAN [id number] SP [id number] [employer] NO FAULT [id number] SP [id number] Problems, Conditions, and Diagnoses Code Display Name Description Problem Type Effective Dates Data Source(s) 680530394 Dyspnea, unspecified Dyspnea, unspecified 09/29/2019 03:44:35 PM EDT [facility] [id number] Dyspnea Dyspnea Problem 09/29/2019 12:0 0:00 AM EDT - 04/28/2020 12:00:00 AM EST [facility] ([facility]) 788.30 Urinary incontinence Urinary incontinence 08/04 12:44:06 PM EDT [facility] [id number] Urinary incontinence Urinary Incontinence Problem 08/05/2019 12:00:00 AM EDT [facility] ([facility]) 58822746 Pain in limb Pain in limb Problem 04/01/2019 12:00:00 A M EST [facility] ([facility] [id number] Ingrowing nail Ingrowing nail Problem 04/01/2019 12:00: 00 AM EST [facility] ([facility] [id number] Procedure by method Procedure by Method Problem 0 12/30/2018 12:00:00 AM EDT - 04/28/2020 12:00:00 AM EST [facility] ([facility]) L85.3 Xerosis cutis Xerosis cutis Diagnosis 01/25/2020 02:34:52 PM T [facility] D18.01 Hemangioma of skin and subcutaneous tiss ue Hemangioma of skin and subcutaneous tissue Diagnosis 01/25/2020 02:34:38 PM EDT [facility] I78.1 Nevus, non-neoplastic Nevus, non-neoplastic Diagnosis 01/25/2020 02:34:33 PM T [facility] L81.4 Other melanin hyperpigmentation Other melanin hyperpig mentation Diagnosis 01/25/2020 02:34:28 PM [facility] D22.9 Melanocytic nevi, unspecified Melanocytic nevi, unspec ified Diagnosis 01/25/2020 02:34:26 PM [facility] L70.0 Acne vulgaris Acne vulgaris Diagnosis 01/25/2020 02:34:23 PM [facility] L85.8 Other specified epidermal thickening Other speci fied epidermal thickening Diagnosis 01/25/2020 02:06:19 PM [facility] Surgeries/Procedures Procedure Description Date Indications Data Source(s) INCISION & DRAINAGE ABSCESS SIMPLE/SINGLE 07/23/2019 1 2:00:00 AM EDT [facility] ([facility] SMEAR, WET MOUNT, SALINE/INK 04/19/2019 12:00:00 AM ES T eCW1 ([facility]) Results ID Date Data Source [id number] 05/21/2020 09:02:00 AM EST [facility] ([facility]) Name Value Range Interpretation Code Description Data Ronit rce(s) Supporting Document(s) Bacteria identified in Throat by Culture [facility] FULL REPORT IN LAB NOTES (eCW and [facility] ). ORGANISM 1: STREPTOCOCCUS GROUP G QUANTITY OF GROWTH HEAVY ORGANISM 1: STREPTOCOCCUS GROUP G ID Date Data Source [id number] 05/21/2020 12:00:00 AM EST [facility] Name Value Range Interpretation Code Description Data Ronit rce(s) Supporting Document(s) SARS-CoV2 Rapid Antigen Negative [facility] This lab was reported by [facility]. ID Date Data Source [id number] 05/12/2020 12:00:00 AM EST [facility] Name Value Range Interpretation Code Description Data Ronit rce(s) Supporting Document(s) SARS-CoV-2 (COVID-19) RNA [Presence] in Respiratory specimen by MARY with probe detection Not Detected [facility] This lab was ordered by [facility] and reported by [facility]. ID Date Data Source [id number] 01/25/2020 05:31:15 PM EDT [facility] Name Value Range Interpretation Code Description Data Ronit rce(s) Supporting Document(s) Progress Note [facility] [id number] lbm [file] [id number] ID Date Data Source [id number] 09/30/2019 10:25:00 AM EDT [facility] Name Value Range Interpretation Code Description Data Ronit rce(s) Supporting Document(s) SARS CORONAVIRUS 2 RNA [facility] This lab was ordered by [facility] and reported by [facility]. ID Date Data Source [id number] 08/05/2019 10:20:51 AM EDT [facility] Measurements & CalculationsHeight: 63 inches 160.02 cm Weight: 161 pounds 73.18 kg Body Mass Index (BMI): 28.62BMI Interpretation: OverweightBody Surface Area (BSA): 1.77Vital SignsTemperature: 98.2F tympanic Pulse Rate: 84 beats/minuteRespiratory Rate: 20 respirations/minuteBlood Pressure: 136/88 right arm sitting automaticO2 Saturation: 99% room airVital Signs performed by: Uriel Crump MA, August 05, 2019 10:37 AMInitial Intake Information from: ptRoom #: 15Smoking, Tobacco, Vaping or Smoke Exposure StatusSmoke Status: current every day smokerTobacco Use: YesDo you vape? NoPassive Smoke Exposure: YesMenstrual HistoryLast Menstrual Period (LMP): 08/01/2019Any possibility of ? NoHealthcare HistorySince your last office visit...Have you been admitted to the hospital? NoHave you been to an emergency room (ER) or urgent care clinic? NoHave you seen another healthcare provider? NoHave you seen a dentist? NoIntake performed by: Neto Thakkar MA, August 05, 2019 10:32 AMRate Your HealthIn general, would you say your health is? GoodPain AssessmentAre you currently having any pain which... You would like your provider to address? No Affects your activity level? NoDepression Screening - PHQ-2Over the last two weeks, have you... Had little interest or pleasure in doing things? Not at all Been feeling down, depressed, or hopeless? Not at all PHQ-2 Score: 0Anxiety Screening - GINNA-2Over the last two weeks, have you been... Feeling nervous, anxious, or on edge? Not at all Unable to stop or control worrying? Not at all GINNA-2 Score: 0Infectious Disease / Travel ScreeningRecent travel for you or any close contacts? NoHave you had any close contact with anyone diagnosed with or under investigation for COVID-19 (coronavirus)? NoHave you had any of the following symptoms recently? Fever? NoRespiratory symptoms: cough, cold, congestion, shortness of breath, difficulty breathing? NoScreening, Brief Intervention, & Referral to Treatment (SBIRT)Pre- Screening Questions How many times have you have 4 or more drinks in a day? 0How many times have you used an illegal drug or used a prescription medication for a non-medical reason? 0Performed by: Neto Thakkar MA, August 05, 2019 10:33 AMPatient History Medical History:Anxiety and depression Surgical History:1995 breast reduction teeth [id number] cyst removed from head 2014 cyst removed from cervix DNCBarthaline glad removed александр Family History:noneSocial/Personal History: Chief Complainturinary issuesHistory of Present Illness (HPI)stress induced , urinary issues. pt states it happens when she coughs and sneezes. pt states she is now on 12 mg of abilify. I, Uriel Crump MA, am scribing for, and in the presence of, Pepe Kenyon, DO pt states that she leaks when she sneezes and coughs. pt states she does do keegals. pt states the last time she leaked significantly was about two weeks ago. pt denies any foul odor. pt states it does not burn and that there is no discharge. Will get uroinary sample today in office. pt has not had children. pt states she was ding jumping jacks about two weeks ago and she signicantly leaked. pt states she was on antibiotics recently. DO states it could have fixed her problem. DO states that it could have been a slight infection. Problem ReviewProblem List was reviewed and/or updated during this visit.Medication Reconciliation & ReviewMedication List was reviewed and/or updated during this visit, including review of any bose-zlf-mozdsmb medications, herbal therapies, and/or supplements.Allergy ReviewAllergy List was reviewed and/or updated during this visit.Review of Systems Genitourinary: Complains of urinary incontinence. Denies pain with urination, burning with urination, urinary frequency, urinary hesitancy, urinary urgency, urinary urgency at night, incomplete emptying, blood in urine, absence of menstrual period, heavy menstrual period, prolonged menstrual period, pelvic pain, abnormal vaginal bleeding, painful intercourse, vaginal discharge, vaginal sores, vaginal itching, genital foul odor, genital sores, genital burning, genital itching, genital warts, anal discharge, anal sores, anal warts. Physical ExamAbdomen: no CVAT, no suprapubic tendRate Your HealthIn general, would you say your health is? GoodAssessment & Plan Problems:Added: Urinary incontinence (ICD-788.30) ([id number])Assessment not SavedUrinary incontinence (YPA75-T13): check UAMedications:MELOXICAM 15 MG ORAL TABLETEQL VITAMIN D3 1000 UNIT ORAL CAPSULETRAZODONE HCL 50 MG ORAL TABLETABILIFY 10 MG ORAL TABLETBUPROPION HCL ER (XL) 300 MG ORAL TABLET EXTENDED RELEASE 24 HOURTOPAMAX 25 MG ORAL TABLETVITAMIN D3 26475 UNIT ORAL TABLETAllergies:No Known Allergies (updated 12/30/2018) Name Value Range Interpretation Code Description Data Ronit rce(s) Supporting Document(s) ID Date Data Source CHLAMYDIA & GC DNA AMPLIFICAT 04/19/2019 12:00:00 AM EST eCW 1 ([facility]) Name Value Range Interpretation Code Description Data Ronit rce(s) Supporting Document(s) Chlamydia trachomatis rRNA [Presence] in Unspecified specimen by Probe and target amplification method NEGATIVE NEGATIVE CHLAMYDIA DNA AMPLIFICATION eCW1 ([facility]) Procedure Social History Code Duration Value Status Description Data Source(s ) Alcohol intake 01/25/2020 12:00:00 AM EDT Current non-d john of alcohol (finding) completed Current non-drinker of alcohol (finding) [facility] Tobacco use and exposure 01/25/2020 12:00:00 AM EDT Never used co mpleted Never used [facility] Cigarette pack-years 01/25/2020 12:00:00 AM EDT UNK completed [facility] Cigarettes smoked current (pack per day) - Reported 01/25/20 20 12:00:00 AM EDT UNK completed [facility] Smoking 01/25/2020 12:00:00 AM EDT Former smoker completed Former smoker [facility] Smoking 04/19/2019 12:00:00 AM EST Never Smoker completed Never S moker eCW1 ([facility]) Vital Signs ID Date Data Source UNK Name Value Range Interpretation Code Description Data Source(s) Body weight 158.00 [lb_av] 158.00 [lb_av] MED[facility] T ([facility]) Body temperature 97.3 [degF] 97.3 [degF] [facility] ([facility]) Oxygen saturation in Arterial blood by Pulse oximetry 99 % 99 % [facility] ([facility]) Respiratory rate 16 /min 16 /min [facility] ( [facility]) Heart rate 98 /min 98 /min [facility] ([facility]) Diastolic blood pressure 71 mm[Hg] 71 mm[Hg] [facility] ([facility]) Systolic blood pressure 104 mm[Hg] 104 mm[Hg] M EDENT ([facility]) Body weight 2642 [oz_av] 2642 [oz_av] [facility] ([facility]) Systolic blood pressure 135 mm[Hg] 135 mm[Hg] [facility] ([facility]) Body mass index (BMI) [Ratio] 29.3 kg/m2 29.3 k g/m2 [place] ([facility]) Body height 63 [in_i] 63 [in_i] [place] ([facility]) Diastolic blood pressure 79 mm[Hg] 79 mm[Hg] [facility] ([facility]) Body weight 2576 [oz_av] 2576 [oz_av] [facility] ([facility]) Systolic blood pressure 136 mm[Hg] 136 mm[Hg] [facility] ([facility]) Body height 63 [in_i] 63 [in_i] [facility] ([facility]) Diastolic blood pressure 88 mm[Hg] 88 mm[Hg] [facility] ([facility]) Body mass index (BMI) [Ratio] 29.2 kg/m2 29.2 k g/m2 [facility] ([facility] Heart rate 82 /min 82 /min [facility] ([facility] Diastolic blood pressure 68 mm[Hg] 68 mm[Hg] [facility] ([facility] Systolic blood pressure 118 mm[Hg] 118 mm[Hg] M EDENT ([facility] Body weight 165.00 [lb_av] 165.00 [lb_av] MEDEN T ([facility] Body height 63 [in_i] 63 [in_i] [facility] ([facility] 5'3" Diastolic blood pressure 86 mm[Hg] 86 mm[Hg] eCW1 ([facility]) Systolic blood pressure 132 mm[Hg] 132 mm[Hg] e CW1 ([facility]) Body mass index (BMI) [Ratio] 28.45 kg/m2 28.45 kg/m2 W1 ([facility]) Body height 63 [in_us] 63 [in_us] eCW1 ([facility]) Body weight Measured 160.6 [lb_av] 160.6 [lb_av ] eCW1 ([facility]) ID Date Data Source [id number] 01/25/2020 05:31:15 PM T [facility] Name Value Range Interpretation Code Description Data Source(s) WEIGHT RECORDED 165 lb 165 lb [facility] Body height Measured 63.5 in 63.5 in [facility] Patient Treatment Plan of Care Planned Activity Planned Date Details Description Data Source (s) ammonium lactate 120 MG/ML Topical Lotion 01/25/2020 12:00:00 AM ED T [facility] Clindamycin 10 MG/ML Topical Solution 01/25/2020 12:00:00 AM [facility] valacyclovir 500 MG Oral Tablet 01/18/2020 12:00:00 AM T [facility] valacyclovir 500 MG Oral Tablet [Valtrex] 09/21/2019 12:00:00 AM ED T eCW1 ([facility]) Metronidazole 500 MG Oral Tablet 04/19/2019 12:00:00 AM EST eCW1 ([facility]) Metronidazole 500 MG Oral Tablet 04/19/2019 12:00:00 AM EST eCW1 ([facility]) Cholecalciferol 1000 UNT Oral Capsule [facility] ([facility]) Metronidazole 500 MG Oral Tablet [facility] ([facility]) Hydroxyzine Hydrochloride 10 MG Oral Tablet [facility] ([facility]) Fluarix Quad (PF) 60 mcg (15 m cg x 4)/0.5 mL IM syringe ADMINISTER 0.5ML IN THE MUSCLE DIRECTED [facility] ([facility]) Emergen-C [facility] ([facility]) d3-1000 25 mcg (1000 ut) caps [facility] ([facility]) Ciprofloxacin 3 MG/ML Ophthalmic Solution [facility] ([facility]) Cholecalciferol 1000 UNT Oral Tablet [facility] ([facility]) Cephalexin 500 MG Oral Capsule [facility] ([facility]) alfalfa [facility] ([facility])
--- OUTSIDE RECORDS SUMMARY | 2020-05-29 01:28 | CCD | Continuity of Care Document ---
Author Author Carmelina VILLEGAS PA Organization Unknown Address [address] [place] [id number] Phone [phone] Care Team Providers Care Company Marker Name Role Phone Denita MuhammadM [phone] Problems Description No Information Available Social History [...] every day Unknown Vitamin D (Ergocalciferol) 1.25mg (97012 Ut) Capsules qd Unknown Valtrex 1gm Tablets [...] Weight 158.00 lb Pain Level 8 Results Test Acquired Date Facility Test Result H/L Range Note Laboratory test finding 05/21/2020 [facility] [address] [place] [id number] [phone] Throat Culture <pending> Procedures Description No Information Available Medical Devices Description No Information Available Encounters Type Date Location Provider Dx Diagnosis Office Visit 05/21/2020 8:10a Main Office ELISE Paez J06.9 Acute upper respiratory infection, unspecified J02.9 Acute pharyngitis, unspecifi ed Z20.828 Contact w and exposure to ot h viral communicable diseases Assessments Date Code Description Provider 05/21/2020 J06.9 Acute upper respiratory infectio n, unspecified ELISE Paez 05/21/2020 J02.9 Acute pharyngitis, unspecified J ELISE Rm 05/21/2020 Z20.828 Contact with and (mayo spected) exposure to other viral communicable diseases ELISE Paez Plan of Treatment No Information Available Functional Status Description No Information Available Mental Status Description No Information Available Referrals Description No Information Available
--- OUTSIDE RECORDS SUMMARY | 2020-05-29 01:28 | CCD | Continuity of Care Document ---
Author Author Carmelina VILLEGAS PA Organization Unknown Address [address] [place] [address] Phone [phone] Care Team Providers Care Feed Mixer Helper Name Role Phone Denita Muhammad [phone] Problems Description No Information Available Social History [...] SIG Qnty Indications Ordering Provide r Date Amoxicillin 500mg Capsules 1 tab by mouth three times a day with food 21caps Noam Fernandez M.D. 05/23/2020 Abilify 5mg Tablets one per d ay Unknown Bupropion Hydrochloride ER (XL) 300mg Tablets ER 24HR 1 by mouth every day Unknown 0 000 Topamax 50mg Tablets qd Unknown Trazodone HCL 50mg Tablets qd Unknown Meloxicam 7.5mg Tablets 1 by mouth every day Unknown Vitamin D (Ergocalciferol) 1.25mg (60247 Ut) Capsules qd Unknown Valtrex 1gm Tablets [...] H/L Range Note Laboratory test finding 05/21/2020 [facility] [address] [place] [address] [phone] Throat Culture FULL REPORT IN L <SEE NOTE> Normal 1 1 FULL REPORT IN LAB NOTES (eC W and [facility]). ORGANISM 1: STREPTOCOCCUS GROUP G QUANTITY OF GROWTH HEAVY ORGANISM 1: STREPTOCOCCUS GROUP G Procedures Description No Information Available Medical Devices [...]
--- OUTSIDE RECORDS SUMMARY | 2020-05-29 01:28 | CCD | Continuity of Care Document ---
Author Author Carmelina VILLEGAS PA Organization Unknown Address [address] [place] [address] Phone [phone] Care Team Providers Care Analysis Consultant Name Role Phone Denita Muhammad [phone] Problems Description No Information Available Social History [...] every day Unknown Vitamin D (Ergocalciferol) 1.25mg (76210 Ut) Capsules qd Unknown Valtrex 1gm Tablets [...] H/L Range Note Laboratory test finding 05/21/2020 [facility] [address] [place] [address] [phone] Throat Culture FULL REPORT IN L <SEE [...]
[2020-05-29] MEDS ORDERED: ALBU8.5H INH (01:35)
[2020-05-29] MEDS ORDERED: MELO15TA28 PO (01:35)
[2020-05-29] MEDS ORDERED: D31000TA2 PO (01:35)
[2020-05-29] MEDS ORDERED: TOPI25TA10 PO (01:35)
[2020-05-29] MEDS ORDERED: BUPR300T92 PO (01:35)
[2020-05-29] MEDS ORDERED: AMOX500C PO (01:35)
[2020-05-29 01:58] LABS: BASO # 0.1 10^3/uL (0.0-0.2); BASO % 0.5 % (0.0-1.0); EOS # 0.2 10^3/uL (0.0-0.5); EOS % 1.4 % (0.0-3.0); HEMATOCRIT 37.4 % (36.0-47.0); HEMOGLOBIN 12.5 g/dl (12.0-15.5); LYMPH # 2.6 10^3/uL (1.5-5.0); LYMPH % 19.3 % (24.0-44.0); MEAN CORPUSCULAR HEMOGLOBIN 30.6 pg (27.0-33.0); MEAN CORPUSCULAR HGB CONC 33.4 g/dl (32.0-36.5); MEAN CORPUSCULAR VOLUME 91.4 fl (80.0-96.0); MONO # 0.9 10^3/uL (0.0-0.8); MONO % 6.3 % (2.0-8.0); NEUTROPHILS # 9.6 10^3/uL (1.5-8.5); NEUTROPHILS % 72.1 % (36.0-66.0); PLATELET COUNT, AUTOMATED 287 10^3/uL (150-450); RED BLOOD COUNT 4.09 10^6/uL (4.00-5.40); WHITE BLOOD COUNT 13.4 10^3/uL (4.0-10.0)
[2020-05-29] MEDS ORDERED: dexameTHASONE 20MG/5ML VIAL (J1100 PER 1MG) IV ONE (02:00)
[2020-05-29] MEDS: COMBIVENT RESPIMAT 100-20MCG INHALER 4GM INH SCH ×3 (02:14→02:54)
--- NOTE | 2020-05-29 02:18 | REPVR ---
PROCEDURE INFORMATION: Exam: XR Chest, 1 View Exam date and time: 05/29/2020 2:09 AM Age: 39 years old Clinical indication: Cough and dyspnea TECHNIQUE: Imaging protocol: XR of the chest Views: 1 view. COMPARISON: 1. CR Chest, 2 view PA, Lat 07/22/2018 12:[address] ANGIO CHEST 02/12/2019 3:57:22 PM FINDINGS: Lungs: There are airspace opacities in the mid lung zones and lung bases bilaterally. Pleural spaces: Unremarkable. No pleural effusion. No pneumothorax. Heart/Mediastinum: Unremarkable. No cardiomegaly. Bones/joints: Unremarkable. IMPRESSION: Airspace opacities in the mid lung zones and lung bases bilaterally, which may represent pneumonia. COVID-19 pneumonia should also be considered. Electronically signed by: Jameel Shah On 05/29/2020 02:18:19 AM
[2020-05-29 02:28] LABS: BLOOD UREA NITROGEN 20 MG/DL (7-18); CARBON DIOXIDE LEVEL 26 MEQ/L (21-32); CHLORIDE LEVEL 110 MEQ/L (98-107); CPK CREATINE PHOSPHOKINASE 81 U/L (26-192); GLOMERULAR FILTRATION RATE 29.5 (>60); GLUCOSE, FASTING 89 MG/DL (70-100); MB/CK RELATIVE INDEX 2.47 (< OR =4); POTASSIUM SERUM 3.8 MEQ/L (3.5-5.1); SODIUM LEVEL 144 MEQ/L (136-145); TROPONIN I < 0.02 NG/ML (< 0.10)
--- OUTSIDE RECORDS SUMMARY | 2020-05-29 02:42 | CCD ---
Author Author [facility] Organization [facility] Address Unknown Phone Unavailable Care Team Providers Care Therapy Tech Name Role Phone Gabriella MUÑOZ DPM Unavailable [...] Rafael MINA MD Unavailable Unavailable Jose Rafael IMNA MD Unavailable Unavailable Jose Rafael MINA MD [...] M Denita PA Unavailable Unavailable Scordo, M Deinta PA Unavailable Unavailable Scordo, M Denita PA Unavailable Unavailable Brown, Prema SNACK BAR CASHIER SNACK BAR CASHIER Unavailable Unavailable JINGA, CRISTINO [id number] Unavailable Unavailable Brown, F Prema SNACK BAR CASHIER-BC Unavailable Unavailable Brown, F Prema SNACK BAR CASHIER-BC Unavailable Unavailable Brown, F Prema SNACK BAR CASHIER-BC Unavailable Unavailable Brown, F Prema SNACK BAR CASHIER-BC Unavailable Unavailable Brown, F Prema SNACK BAR CASHIER-BC Unavailable Unavailable Brown, F Prema SNACK BAR CASHIER-BC Unavailable Unavailable Brown, F Prema SNACK BAR CASHIER-BC Unavailable Unavailable Brown, F Prema SNACK BAR CASHIER-BC Unavailable Unavailable Brown, F Prema SNACK BAR CASHIER-BC Unavailable Unavailable Brown, F Prema SNACK BAR CASHIER-BC Unavailable Unavailable Brown, F Prema SNACK BAR CASHIER-BC Unavailable Unavailable Brown, F Prema SNACK BAR CASHIER-BC Unavailable Unavailable Brown, F Prema SNACK BAR CASHIER-BC Unavailable Unavailable Brown, F Prema SNACK BAR CASHIER-BC Unavailable Unavailable Brown, F Prema SNACK BAR CASHIER-BC Unavailable Unavailable Brown, F Prema SNACK BAR CASHIER-BC Unavailable Unavailable Brown, F Prema SNACK BAR CASHIER-BC Unavailable Unavailable Brown, F Prema SNACK BAR CASHIER-BC Unavailable Unavailable Brown, F Prema SNACK BAR CASHIER-BC Unavailable Unavailable Brown, F Prema SNACK BAR CASHIER-BC Unavailable Unavailable Brown, F Prema SNACK BAR CASHIER-BC Unavailable Unavailable Brown, F Prema SNACK BAR CASHIER-BC Unavailable Unavailable Brown, F Prema SNACK BAR CASHIER-BC Unavailable Unavailable Brown, F Prema SNACK BAR CASHIER-BC Unavailable Unavailable Brown, F Prema SNACK BAR CASHIER-BC Unavailable Unavailable Brown, F Prema SNACK BAR CASHIER-BC Unavailable Unavailable Brown, F Prema SNACK BAR CASHIER-BC Unavailable Unavailable Brown, F Prema SNACK BAR CASHIER-BC Unavailable Unavailable Brown, F Prema SNACK BAR CASHIER-BC Unavailable Unavailable Brown, F Prema SNACK BAR CASHIER-BC Unavailable Unavailable Brown, F Prema SNACK BAR CASHIER-BC Unavailable Unavailable Brown, F Prema SNACK BAR CASHIER-BC Unavailable Unavailable Brown, F Prema SNACK BAR CASHIER-BC Unavailable Unavailable Brown, F Prema SNACK BAR CASHIER-BC Unavailable Unavailable Brown, F Prema SNACK BAR CASHIER-BC Unavailable Unavailable Brown, F Prema SNACK BAR CASHIER-BC Unavailable Unavailable Brown, F Prema SNACK BAR CASHIER-BC Unavailable Unavailable Brown, F Prema SNACK BAR CASHIER-BC Unavailable Unavailable Brown, F Prema SNACK BAR CASHIER-BC Unavailable Unavailable Brown, F Prema SNACK BAR CASHIER-BC Unavailable Unavailable Brown, F Prema SNACK BAR CASHIER-BC Unavailable Unavailable Brown, F Prema SNACK BAR CASHIER-BC Unavailable Unavailable Brown, F Prema SNACK BAR CASHIER-BC Unavailable Unavailable Brown, F Prema SNACK BAR CASHIER-BC Unavailable Unavailable CRUZ, E TEAGAN Unavailable Unavailable [...] Daisy Pastora PA Unavailable Unavailable Santos, Daisy Pastroa PA Unavailable Unavailable Santos, Daisy Pastora PA [...] is protected by Article 27-F of the [facility] Public Health law. If you continue you may have access to information: Regarding HIV / AIDS; Provided by facilities licensed or operated by the [facility] Office of Mental Health; or Provided by the [facility] Office for People With Developmental Disabilities. If such information is present, then the following [facility] mandated warning applies: This information has [...] law may result in a fine or long term sentence or both. A general authorization for the release of medical or other information is NOT sufficient authorization for further disc losure. Allergies and Adverse Reactions Type Description Substance Reaction Status Data Source(s ) Drug Class NO KNOWN ALLERGIES NO KNOWN ALLERGIES [facility] Propensity to adverse reactions environmental Propensity to ad verse reactions Unknown Active eCW1 ([facility]) environmental environmental environmental Unknown Active [facility]CW[facility]) Allergy to substance Allergy to substance Allergy to substance [place] ([facility]) Family History Family Member Name Family Member Gender Family Member Status Date o f Status Description Data Source(s) Unknown Unknown Problem [facility] Unknown Unknown Problem MEDENT ([facility] Encounters Encounter Providers Location Date Indications Data Source(s ) Outpatient Attender: TEAGAN CRUZ 07/24/2020 12:00:00 AM [facility] Office Visit Attender: Pastora basilio 05/21/2020 07:10:00 AM EST MEDENT ([facility]) MITZY FierroC: [address] [place] [id number], Ph. Attender: Denita OLIVARES IN - [facility] Medical 04/28/2020 12:00:00 AM EST [place] ([facility]) Outpatient Attender: Jessie Lopez Attender: TEAGAN Jayender: CRISTINO SCHMIDT [id number]: Prema ESTRADA [id number] 12:00:00 AM EDT - 01/25/2020 03:18:48 PM EDT Acne vulgaris [facility] spital Acne vulgaris Outpatient Attender: Prema EDWARDS 11/22/2019 05: 44:02 PM EDT [facility] Outpatient Attender: LUCILLE MINA MD 11/22/2019 12:00:00 AM [facility] Outpatient Attender: MARLON OLIVARES Physical Therapy 09/13 11:00:00 AM EDT MEDENT ([facility]) Outpatient Attender: Prema EDWARDS 09/29/2019 03: 48:02 PM EDT [facility] Outpatient Attender: MONIQUE EDWARDS 09/29/2019 03:46:02 PM EDT [address], [facility] [address] 09/20/2019 12:00:00 AM EDT eCW1 ([facility]) Outpatient Attender: LUCILLE MINA MD 09/13/2019 12:00:00 AM [facility] Outpatient Attender: LUCILLE MINA MD 09/13/2019 12:00:00 AM [facility] Outpatient 09/08/2019 12:00:00 AM [facility] Outpatient Attender: LUCILLE MINA MD 09/08/2019 12:00:00 AM [facility] Outpatient Attender: MONIQUE EDWARDS 09/01/2019 12:25:01 PM EDT [facility] Outpatient Attender: MONIQUE Brown MONIQUE FP 08/05/2019 12:46:00 PM EDT [facility] Outpatient Attender: Prema Kevin AMAYA-BC FP 08/05/2019 12: 45:01 PM EDT [facility] Outpatient Attender: MONIQUE Brown SNACK BAR CASHIER FP 08/05/2019 12:06:00 PM EDT [facility] Outpatient Attender: MONIQUE Brown MONIQUE FP 08/05/2019 12:04:01 PM EDT [facility] Outpatient Attender: MONIQUE Kevin AMAYA FP 08/05/2019 12:03:01 PM EDT [facility] Outpatient Attender: MONIQUE Kevin AMAYA FP 08/05/2019 10:11:00 AM EDT [facility] Outpatient Attender: Prema Kevin AMAYA-BC FP 08/05/2019 08: 54:01 AM EDT [facility] Outpatient Attender: SNACK BAR CASHIERLatrice AMAYA FP 08/05/2019 08:31:01 AM EDT [facility] Outpatient Attender: HERNESTO MUÑOZ [facility] 07/13 10:30:00 AM EDT MEDENT ([facility] Outpatient Attender: CRISTINO SCHMIDT [id number] 07/23/2019 12:00: 00 AM [facility] Outpatient Attender: SNACK BAR CASHIERLatrice AMAYA FP 06/18/2019 02:55:01 PM EST [address] [phone] 04/19/2019 12:00:00 AM EST eCW1 ([facility]) Medications Medication Brand Name Start Date Product Form Dose Route Admi nistrative Instructions Pharmacy Instructions Status Indications Reaction Description Data Source(s) Amoxicillin 500 MG Oral Capsule Amoxicillin 05/23/2020 12:00:00 AM EST ORAL active MEDENT ([facility]) 500 mg 05/23/2020 [...] ONE TABLET BY MOUTH EVERY DAY AT [facility] DIRECTED SOLD: 04/10/2020 [facility] [...] BY MOUTH TWICE A DAY SOLD: 03/10/2020 [facility] 24 HR Bupropion Hydrochloride 300 [...] after showers. Avoid face and groin area. [facility] Xerosis cutis Keratosis pilaris Clindamycin 10 MG/ML Topical Solution Cl indamycin Phosphate 1 % External Solution (CLEOCIN T) Clindamycin Phosphate 1 % External Solution (CLEOCIN T ) 01/25/2020 12:00:00 AM EDT active Acne vulgaris Apply BID to AFFECTED AREAS [facility] Acne vulgaris 1 % 01/25/2020 12:00:00 AM [...] Tablet (VALTREX) 01/18/2020 12:00:00 AM EDT active [facility] 10 mg 01/12/2020 12:00:00 AM [...] TABLET BY MOUTH EVERY DAY SOLD: 01/22/2020 [facility] 500 mg 09/22/2019 12:00:00 AM [...] 1.0 {tablet} active Valtrex 500 MG eCW1 [facility]) 300 mg 09/01/2019 12:00:00 AM EDT [...] 12:00:00 AM EST active 1 tablet eCW1 ([facility]) Metronidazole 500 MG Oral Tablet Metronidazole 500 MG 2019 12:00:00 AM EST 1.0 {tablet} active Metronidazo le 500 MG eCW1 ([facility]) 500 mg 04/19/2019 12:00:00 AM EST [...] BY MOUTH TWICE A DAY SOLD: 04/10/2019 [facility] 15 mg 04/06/2019 12:00:00 AM EST [...] CAPSULE BY MOUTH EVERY DAY SOLD: 09/29/2019 [facility] 25 mcg (1,000 unit) 03/22/2019 12:00:00 [...] completed cephalexin 50 0 MG Oral Capsule [place] ([facility]) Emergen-C completed Emergen-C [place] ([facility]) Fluarix Quad (PF) 60 mcg (15 m cg x 4)/0.5 mL IM syringe ADMINISTER 0.5ML IN THE MUSCLE DIRECTED [id number] compl eted 0.5 ML influenza A virus A/[facility]/[id number] (H1N1) antigen 0.03 MG/ML / influenza A virus A/Eason Otis (H3N2) antigen 0.03 MG/ML / influenza B virus B/[facility] antigen 0.03 MG/ML / influenza B virus B/ antigen 0.03 MG/ML Prefilled Syringe [Fluarix Quadrivalent ] [place] ([facility]) Cholecalciferol 1000 UNT Oral Tablet cho lecalciferol (vitamin D3) 25 mcg (1,000 unit) tablet TAKE ONE TABLET BY MOUTH EVERY DAY cholecalciferol (vitamin D3) 25 mcg (1,000 unit) tablet TAKE ONE TABLET BY MOUTH EVERY DAY completed cholecalciferol 0.025 MG Oral Ta blet [place] ([facility]) Hydroxyzine Hydrochloride 10 MG Oral Tablet hydroxyzin e HCl 10 mg tablet hydroxyzine HCl 10 mg tablet completed hydroxyzine hydrochloride 10 MG Oral Tablet [place] ([facility]) Ciprofloxacin 3 MG/ML Ophthalmic Solution ciprofloxaci n 0.3 % eye drops ciprofloxacin 0.3 % eye drops complete d ciprofloxacin 3 MG/ML Ophthalmic Solution [place] ([facility]) Cholecalciferol 1000 UNT Oral Capsule Vi tamin D3 25 mcg (1,000 unit) capsule TAKE 1 CAPSULE BY MOUTH ONCE DAILY Vitamin D3 25 mcg (1,000 unit) capsule T JUANY 1 CAPSULE BY MOUTH ONCE DAILY completed cholecalciferol 0.025 MG Oral Capsule [place] ([facility]) Metronidazole 500 MG Oral Tablet metroni dazole 500 mg tablet TAKE ONE TABLET BY MOUTH THREE TIMES A DAY FOR 7 DAYS metronidazole 500 mg tablet TAKE ONE TAB LET BY MOUTH THREE TIMES A DAY FOR 7 DAYS completed metronidazole 500 MG Oral Tablet [place] ([facility]) d3-1000 25 mcg (1000 ut) caps c ompleted d3-1000 25 mcg (1000 ut) caps [place] ([facility]) alfalfa completed alfalfa ATHE NA ([facility]) Insurance Providers Payer name Policy type / Coverage type Policy ID Covered constitution party ID Covered constitution party's relationship to collins Policy [place] Plan Information MEDICARE [id number] SP [id number] [facility] COMMUNITY PLAN MCDO [id number] SP [id number] SELF PAY ONLY [id number] SP [id number] [facility] RAISA [id number] SP [id number] [facility] I [id number] Self [id number] MEDICAID M [id number] Self [id number] [facility] I [id number] Self [id number] Managed Care - [facility] Community Plan P [id number] S [id number] Medicaid S [id number] S [id number] [facility] RAISA [id number] SP [id number] [facility] RAISA [id number] SP [id number] Managed Care - [facility] Community Plan P [id number] S [id number] Medicaid S [id number] S [id number] UNITED [employer]CARE(MCAID) O [id number] S [id number] [facility](MCAID) O [id number] S [id number] UNHC COMMUNITY PLAN MCDHMO [id number] SP [id number] MEDICAID [id number] SP [id number] MEDICAID M [id number] S [id number] EXCELLUS BCBS B [id number] S [id number] Medicaid IN Medicaid [id number] Self [id number] MEDICAID M [id number] Self [id number] Medicaid IN Medicaid [id number] Self [id number] AETNA [id number] SP [id number] [place] PPO 302/307 [id number] SP [id number] [place]BS [place] P[place] 302/307 [id number] SP [id number] [place]BS [place] PPO 302/307 [id number] SP [id number] Medicaid IN Medicaid [id number] Self [id number] [place] [id number] Self [id number] BLUE CROSS [id number] SP [id number] [place] [id number] SP [id number] BLUE CROSS UNAVAILABLE UNAVAIL ABLE BLUE CARD C [id number] Self [id number] SELF PAY ONLY NONE SP NONE BLUE CARD C [id number] Self [id number] [place]BS [place] PPO 302/307 [id number] SP [id number] [employer] Health Maintenance Organization (HMO) [id number] Self [id number] [employer] Health Maintenance Organization (HMO) [id number] Self [id number] BCBS [place] PPO 302/307 [id number] SP [id number] MEDICAID M [id number] Self [id number] [employer] Health Maintenance Organization (HMO) [id number] Self [id number] BCBS [place] PPO 302/307 [id number] SP [id number] [employer] Health Maintenance Organization (HMO) [id number] Self [id number] UHC I [id number] Self [id number] BCBS [place] PPO 302/307 [id number] SP [id number] UHC I [id number] Self [id number] [facility] Raisa/MCR Health Maintenance Organization (HMO) [id number] Self [id number] COMMUNITY PLAN MCDO [id number] SP [id number] [facility] [id number] SP [id number] [facility](MCAID) O [id number] S [id number] MVP H [id number] Self [id number] [employer] PHY [id number] SP [id number] [place] Community Plan Medigap Part B Self BC/BS Of [place] Commercial Self MEDICAID M [id number] Self [id number] EXCELLUS I [id number] Self [id number] BLUE CHOICE OPTION O [id number] S [id number] MEDICAID W [id number] S [id number] BLUE CHOICE OPTION UNAVAILABLE UNAVAILABLE BLUE CROSS NUNN PLAN [id number] SP [id number] [employer] NO FAULT [id number] SP [id number] Problems, Conditions, and Diagnoses Code Display Name Description Problem Type Effective Dates Data Source(s) 544066470 Dyspnea, unspecified Dyspnea, unspecified 09/29/2019 03:44:35 PM EDT [facility] [id number] Dyspnea Dyspnea Problem 09/29/2019 12:0 0:00 AM EDT - 04/28/2020 12:00:00 AM EST [place] ([facility]) 788.30 Urinary incontinence Urinary incontinence 08/04 12:44:06 PM EDT [facility] [id number] Urinary incontinence Urinary Incontinence Problem 08/05/2019 12:00:00 AM EDT [place] ([facility]) 44845637 Pain in limb Pain in limb Problem 04/01/2019 12:00:00 A M EST MEDENT ([facility] [id number] Ingrowing nail Ingrowing nail Problem 04/01/2019 12:00: 00 AM EST MEDENT ([facility] [id number] Procedure by method Procedure by Method Problem 0 12/30/2018 12:00:00 AM EDT - 04/28/2020 12:00:00 AM EST [place] ([facility]) L85.3 Xerosis cutis Xerosis cutis Diagnosis 01/25/2020 02:34:52 PM T [facility] D18.01 Hemangioma of skin and subcutaneous tiss ue Hemangioma of skin and subcutaneous tissue Diagnosis 01/25/2020 02:34:38 PM EDT [facility] I78.1 Nevus, non-neoplastic Nevus, non-neoplastic Diagnosis 01/25/2020 02:34:33 PM T [facility] L81.4 Other melanin hyperpigmentation Other melanin hyperpig mentation Diagnosis 01/25/2020 02:34:28 PM [facility] D22.9 Melanocytic nevi, unspecified Melanocytic nevi, unspec ified Diagnosis 01/25/2020 02:34:26 PM [facility] L70.0 Acne vulgaris Acne vulgaris Diagnosis 01/25/2020 02:34:23 PM [facility] L85.8 Other specified epidermal thickening Other speci fied epidermal thickening Diagnosis 01/25/2020 02:06:19 PM [facility] Surgeries/Procedures Procedure Description Date Indications Data Source(s) INCISION & DRAINAGE ABSCESS SIMPLE/SINGLE 07/23/2019 1 2:00:00 AM EDT MEDENT ([facility] SMEAR, WET M[place], SALINE/INK 04/19/2019 12:00:00 AM ES T eCW1 ([facility]) Results ID Date Data Source [id number] 05/21/2020 09:02:00 AM EST MEDENT ([facility]) Name Value Range Interpretation Code Description Data Ronit rce(s) Supporting Document(s) Bacteria identified in Throat by Culture Laboratory [facility] FULL REPORT IN LAB NOTES (eCW and Medent ). ORGANISM 1: STREPTOCOCCUS GROUP G QUANTITY OF GROWTH HEAVY ORGANISM 1: STREPTOCOCCUS GROUP G ID Date Data Source [id number] 05/21/2020 12:00:00 AM EST [facility] Name Value Range Interpretation Code Description Data Ronit rce(s) Supporting Document(s) SARS-CoV2 Rapid Antigen Negative [facility] This lab was reported by [facility]. ID Date Data Source [id number] 05/12/2020 12:00:00 AM EST [facility] Name Value Range Interpretation Code Description Data Ronit rce(s) Supporting Document(s) SARS-CoV-2 (COVID-19) RNA [Presence] in Respiratory specimen by MARY with probe detection Not Detected [facility] This lab was ordered by [facility] and reported by [employer]. ID Date Data Source [id number] 01/25/2020 05:31:15 PM EDT [facility] Name Value Range Interpretation Code Description Data Ronit rce(s) Supporting Document(s) Progress Note [facility] [id number] lbm [file] [id number] ID Date Data Source [id number] 09/30/2019 10:25:00 AM EDT [facility] Name Value Range Interpretation Code Description Data Ronit rce(s) Supporting Document(s) SARS CORONAVIRUS 2 RNA [facility] This lab was ordered by [facility] and reported by [facility]. ID Date Data Source [id number] 08/05/2019 10:20:51 AM EDT [facility] and depression Surgical History:1995 breast reduction teeth [id number] cyst removed from head 2014 cyst removed [...] during this visit, including review of any excd-dkg-paqbrnr medications, herbal therapies, and/or supplements.Allergy ReviewAllergy List [...] GoodAssessment & Plan Problems:Added: Urinary incontinence (ICD-788.30) (ZRG01-U89)Assessment not SavedUrinary incontinence (ZAI93-M58): check UAMedications:MELOXICAM 15 MG ORAL TABLETEQL VITAMIN D3 1000 UNIT ORAL CAPSULETRAZODONE HCL 50 MG ORAL TABLETABILIFY 10 MG ORAL TABLETBUPROPION HCL ER (XL) 300 MG ORAL TABLET EXTENDED RELEASE 24 HOURTOPAMAX 25 MG ORAL TABLETVITAMIN D3 31394 UNIT ORAL TABLETAllergies:No Known Allergies (updated 12/30/2018) Name Value Range Interpretation Code Description Data Ronit rce(s) Supporting Document(s) ID Date Data Source CHLAMYDIA & GC DNA AMPLIFICAT 04/19/2019 12:00:00 AM EST eCW 1 ([facility] Name Value Range Interpretation Code Description Data Ronit rce(s) Supporting Document(s) Chlamydia trachomatis rRNA [Presence] in Unspecified specimen by Probe and target amplification method NEGATIVE NEGATIVE CHLAMYDIA DNA AMPLIFICATION eCW1 ([facility]) Procedure Social History Code Duration Value Status Description Data Source(s ) Alcohol intake 01/25/2020 12:00:00 AM EDT Current non-d john of alcohol (finding) completed Current non-drinker of alcohol (finding) [facility] Tobacco use and exposure 01/25/2020 12:00:00 AM EDT Never used co mpleted Never used [facility] Cigarette pack-years 01/25/2020 12:00:00 AM EDT UNK completed [facility] Cigarettes smoked current (pack per day) - Reported 01/25/20 20 12:00:00 AM EDT UNK completed [facility] Smoking 01/25/2020 12:00:00 AM EDT Former smoker completed Former smoker [facility] Smoking 04/19/2019 12:00:00 AM EST Never Smoker completed Never S moker eCW1 ([facility]) Vital Signs ID Date Data Source UNK Name Value Range Interpretation Code Description Data Source(s) Body weight 158.00 [lb_av] 158.00 [lb_av] MEDEN T ([facility]) Body temperature 97.3 [degF] 97.3 [degF] MEDENT ([facility]) Oxygen saturation in Arterial blood by Pulse oximetry 99 % 99 % MEDENT ([facility]) Respiratory rate 16 /min 16 /min MEDENT ( [facility]) Heart rate 98 /min 98 /min MEDENT ([facility]) Diastolic blood pressure 71 mm[Hg] 71 mm[Hg] MEDENT ([facility]) Systolic blood pressure 104 mm[Hg] 104 mm[Hg] M EDENT ([facility]) Body weight 2642 [oz_av] 2642 [oz_av] [place] ([facility]) Systolic blood pressure 135 mm[Hg] 135 mm[Hg] A [facility] ([facility]) Body mass index (BMI) [Ratio] 29.3 kg/m2 29.3 k g/m2 [place] ([facility]) Body height 63 [in_i] 63 [in_i] [place] ([facility]) Diastolic blood pressure 79 mm[Hg] 79 mm[Hg] [place] ([facility]) Body weight 2576 [oz_av] 2576 [oz_av] [place] ([facility]) Systolic blood pressure 136 mm[Hg] 136 mm[Hg] A [facility] ([facility]) Body height 63 [in_i] 63 [in_i] [place] ([facility]) Diastolic blood pressure 88 mm[Hg] 88 mm[Hg] [place] ([facility]) Body mass index (BMI) [Ratio] 29.2 kg/m2 29.2 k g/m2 MEDENT ([facility] Heart rate 82 /min 82 /min MEDENT ([facility] Diastolic blood pressure 68 mm[Hg] 68 mm[Hg] MEDENT ([facility] Systolic blood pressure 118 mm[Hg] 118 mm[Hg] M EDENT ([facility] Body weight 165.00 [lb_av] 165.00 [lb_av] MEDEN T ([facility] Body height 63 [in_i] 63 [in_i] MEDENT ([facility] 5'3" Diastolic blood pressure 86 mm[Hg] 86 mm[Hg] eCW1 [facility] Systolic blood pressure 132 mm[Hg] 132 mm[Hg] e CW1 ([facility]) Body mass index (BMI) [Ratio] 28.45 kg/m2 28.45 kg/m2 W1 ([facility]) Body height 63 [in_us] 63 [in_us] eCW1 ([facility]) Body weight Measured 160.6 [lb_av] 160.6 [lb_av ] eCW1 ([facility]) ID Date Data Source [id number] 01/25/2020 05:31:15 PM T [facility] Name Value Range Interpretation Code Description Data Source(s) WEIGHT RECORDED 165 lb 165 lb [facility] Body height Measured 63.5 in 63.5 in [facility] Patient Treatment Plan of Care Planned Activity Planned Date Details Description Data Source (s) ammonium lactate 120 MG/ML Topical Lotion 01/25/2020 12:00:00 AM ED T [facility] Clindamycin 10 MG/ML Topical Solution 01/25/2020 12:00:00 AM [facility] valacyclovir 500 MG Oral Tablet 01/18/2020 12:00:00 AM T [facility] valacyclovir 500 MG Oral Tablet [Valtrex] 09/21/2019 12:00:00 AM ED T [email or web address] Metronidazole 500 MG Oral Tablet 04/19/2019 12:00:00 AM EST [email or web address] ([facility] Metronidazole 500 MG Oral Tablet 04/19/2019 12:00:00 AM EST [facility] ([facility]) Cholecalciferol 1000 UNT Oral Capsule SCOTTY ([facility]) Metronidazole 500 MG Oral Tablet SCOTTY ([facility]) Hydroxyzine Hydrochloride 10 MG Oral Tablet SCOTTY ([facility]) Fluarix Quad (PF) 60 mcg (15 m cg x 4)/0.5 mL IM syringe ADMINISTER 0.5ML IN THE MUSCLE DIRECTED SCOTTY ([facility]) Emergen-C SCOTTY ([facility]) d3-1000 25 mcg (1000 ut) caps SCOTTY ([facility]) Ciprofloxacin 3 MG/ML Ophthalmic Solution SCOTTY ([facility]) Cholecalciferol 1000 UNT Oral Tablet SCOTTY ([facility]) Cephalexin 500 MG Oral Capsule SCOTTY ([facility]) alfalfa SCOTTY ([facility])
[2020-05-29] MEDS ORDERED: NS 1,000 ML IV ONE (02:45)
[2020-05-29 03:09] LABS: NT-PRO BNP 1221 PG/ML (<125)
--- NOTE | 2020-05-29 03:26 | REPVR ---
PROCEDURE INFORMATION: Exam: US Retroperitoneal Limited, Kidneys Exam date and time: 05/29/2020 3:07 AM Age: 39 years old Clinical indication: Abnormal findings; Abnormal lab test; Abnormal kidney function lab tests; Additional info: [place] TECHNIQUE: Imaging protocol: Real-time ultrasound of the retroperitoneum with image documentation. Examination was focused on the kidneys. COMPARISON: No relevant prior studies available. FINDINGS: Right kidney: No stones. No hydronephrosis. Left kidney: No stones. No hydronephrosis. IMPRESSION: No acute findings. Electronically signed by: Heath Hudson On 05/29/2020 03:26:44 AM
[2020-05-29] MEDS: IPRATROPIUM 0.5MG/ALBUTEROL 2.5MG INH SOL UD 3ML (DUONEB) NEB SCH ×3 (04:21→04:57)
[2020-05-29 04:37] LABS: ABG BASE EXCESS -9.2 (-2.0-2.0); ABG HCO3 16.6 MEQ/L (22.0-26.0); ABG O2 SATURATION 94.7 % (95.0-99.0); ABG PARTIAL PRESSURE CO2 35.9 mmHg (35.0-45.0); ABG STANDARD HCO3 17.2 MEQ/L (22.0-26.0); ABG TOTAL CO2 17.7 MEQ/L (22.0-29.0); ABG pH (ARTERIAL) 7.284 UNITS (7.350-7.450)
--- OUTSIDE RECORDS SUMMARY | 2020-05-29 04:55 | CCD ---
Author Author [facility] Organization [facility] Address Unknown Phone Unavailable Care Team Providers Care Energy Management Specialist Name Role Phone Gabriella MUÑOZ DPM Unavailable [...] M Denita PA Unavailable Unavailable Brown, Prema TRAFFIC SIGN ERECTION SUPERVISOR TRAFFIC SIGN ERECTION SUPERVISOR Unavailable Unavailable JINGA, CRISTINO [id number] Unavailable Unavailable Brown, F Prema TRAFFIC SIGN ERECTION SUPERVISOR-BC Unavailable Unavailable Brown, F Prema TRAFFIC SIGN ERECTION SUPERVISOR-BC Unavailable Unavailable Brown, F Prema TRAFFIC SIGN ERECTION SUPERVISOR-BC Unavailable Unavailable Brwon, F Prema TRAFFIC SIGN ERECTION SUPERVISOR-BC Unavailable Unavailable Brown, F Prema TRAFFIC SIGN ERECTION SUPERVISOR-BC Unavailable Unavailable Brown, F Prema TRAFFIC SIGN ERECTION SUPERVISOR-BC Unavailable Unavailable Brown, F Prema TRAFFIC SIGN ERECTION SUPERVISOR-BC Unavailable Unavailable Brown, F Prema TRAFFIC SIGN ERECTION SUPERVISOR-BC Unavailable Unavailable Brown, F Prema TRAFFIC SIGN ERECTION SUPERVISOR-BC Unavailable Unavailable Brown, F Prema TRAFFIC SIGN ERECTION SUPERVISOR-BC Unavailable Unavailable Brown, F Prema TRAFFIC SIGN ERECTION SUPERVISOR-BC Unavailable Unavailable Brown, F Prema TRAFFIC SIGN ERECTION SUPERVISOR-BC Unavailable Unavailable Brown, F Prema TRAFFIC SIGN ERECTION SUPERVISOR-BC Unavailable Unavailable Brown, F Prema TRAFFIC SIGN ERECTION SUPERVISOR-BC Unavailable Unavailable Brown, F Prema TRAFFIC SIGN ERECTION SUPERVISOR-BC Unavailable Unavailable Brown, F Prema TRAFFIC SIGN ERECTION SUPERVISOR-BC Unavailable Unavailable Brown, F Prema TRAFFIC SIGN ERECTION SUPERVISOR-BC Unavailable Unavailable Brown, F Prema TRAFFIC SIGN ERECTION SUPERVISOR-BC Unavailable Unavailable Brown, F Prema TRAFFIC SIGN ERECTION SUPERVISOR-BC Unavailable Unavailable Brown, F Prema TRAFFIC SIGN ERECTION SUPERVISOR-BC Unavailable Unavailable Brown, F Prema TRAFFIC SIGN ERECTION SUPERVISOR-BC Unavailable Unavailable Brown, F Prema TRAFFIC SIGN ERECTION SUPERVISOR-BC Unavailable Unavailable Brown, F Prema TRAFFIC SIGN ERECTION SUPERVISOR-BC Unavailable Unavailable Brown, F Prema TRAFFIC SIGN ERECTION SUPERVISOR-BC Unavailable Unavailable Brown, F Prema TRAFFIC SIGN ERECTION SUPERVISOR-BC Unavailable Unavailable Brown, F Prema TRAFFIC SIGN ERECTION SUPERVISOR-BC Unavailable Unavailable Brown, F Prema TRAFFIC SIGN ERECTION SUPERVISOR-BC Unavailable Unavailable Brown, F Prema TRAFFIC SIGN ERECTION SUPERVISOR-BC Unavailable Unavailable Brown, F Prema TRAFFIC SIGN ERECTION SUPERVISOR-BC Unavailable Unavailable Brown, F Prema TRAFFIC SIGN ERECTION SUPERVISOR-BC Unavailable Unavailable Brown, F Prema TRAFFIC SIGN ERECTION SUPERVISOR-BC Unavailable Unavailable Brown, F Prema TRAFFIC SIGN ERECTION SUPERVISOR-BC Unavailable Unavailable Brown, F Prema TRAFFIC SIGN ERECTION SUPERVISOR-BC Unavailable Unavailable Brown, F Prema TRAFFIC SIGN ERECTION SUPERVISOR-BC Unavailable Unavailable Brown, F Prema TRAFFIC SIGN ERECTION SUPERVISOR-BC Unavailable Unavailable Brown, F Prema TRAFFIC SIGN ERECTION SUPERVISOR-BC Unavailable Unavailable Brown, F Prema TRAFFIC SIGN ERECTION SUPERVISOR-BC Unavailable Unavailable Brown, F Prema TRAFFIC SIGN ERECTION SUPERVISOR-BC Unavailable Unavailable Brown, F Prema TRAFFIC SIGN ERECTION SUPERVISOR-BC Unavailable Unavailable Brown, F Prema TRAFFIC SIGN ERECTION SUPERVISOR-BC Unavailable Unavailable Brown, F Prema TRAFFIC SIGN ERECTION SUPERVISOR-BC Unavailable Unavailable Brown, F Prema TRAFFIC SIGN ERECTION SUPERVISOR-BC Unavailable Unavailable Brown, F Prema TRAFFIC SIGN ERECTION SUPERVISOR-BC Unavailable Unavailable Brown, F Prema TRAFFIC SIGN ERECTION SUPERVISOR-BC Unavailable Unavailable CRUZ, E TEAGAN Unavailable Unavailable [...] Unavailable LANI, M MARLON PA Unavailable Unavailable LAIN, M MARLON PA Unavailable Unavailable LANI, M [...] is protected by Article 27-F of the [facility] Public Health law. If you continue you may have access to information: Regarding HIV / AIDS; Provided by facilities licensed or operated by the [facility] Office of Mental Health; or Provided by the [facility] Office for People With Developmental Disabilities. If such information is present, then the following [facility] mandated warning applies: This information has [...] law may result in a fine or senior care sentence or both. A general authorization for the release of medical or other information is NOT sufficient authorization for further disc losure. Allergies and Adverse Reactions Type Description Substance Reaction Status Data Source(s ) Drug Class NO KNOWN ALLERGIES NO KNOWN ALLERGIES [facility] Propensity to adverse reactions environmental Propensity to ad verse reactions Unknown Active eCW1 ([facility]) environmental environmental environmental Unknown Active eCW1 ([facility]) Allergy to substance Allergy to substance Allergy to substance SCOTTY ([facility]) Family History Family Member Name Family Member Gender Family Member Status Date o f Status Description Data Source(s) Unknown Unknown Problem [facility] Unknown Unknown Problem MEDENT ([facility] Encounters Encounter Providers Location Date Indications Data Source(s ) Outpatient Attender: TEAGAN CRUZ 07/24/2020 12:00:00 AM [facility] Office Visit Attender: Pastora basilio 05/21/2020 07:10:00 AM EST MEDENT ([facility]) MITZY FierroC: [address] [place] [phone], Ph. Attender: Denita OLIVARES [place] - [facility] Medical 04/28/2020 12:00:00 AM EST SCOTTY ([facility]) Outpatient Attender: Jessie Lopez Attender: TEAGAN Jayender: CRISTINO SCHMIDT [id number]: Prema ESTRADA [id number] 12:00:00 AM EDT - 01/25/2020 03:18:48 PM EDT Acne vulgaris [facility]ital Acne vulgaris Outpatient Attender: Prema EDWARDS 11/22/2019 05: 44:02 PM EDT [facility] Outpatient Attender: LUCILLE MINA MD 11/22/2019 12:00:00 AM [facility] Outpatient Attender: MARLON OLIVARES Physical Therapy 09/13 11:00:00 AM EDT MEDENT ([facility]) Outpatient Attender: Prema EDWARDS 09/29/2019 03: 48:02 PM EDT [facility] Outpatient Attender: MONIQUE EDWARDS 09/29/2019 03:46:02 PM EDT [address], [facility] [phone] 09/20/2019 12:00:00 AM EDT eCW1 ([facility]) Outpatient Attender: LUCILLE MINA MD 09/13/2019 12:00:00 AM [facility] Outpatient Attender: LUCILLE MINA MD 09/13/2019 12:00:00 AM [facility] Outpatient 09/08/2019 12:00:00 AM [facility] Outpatient Attender: LUCILLE MINA MD 09/08/2019 12:00:00 AM [facility] Outpatient Attender: MONIQUE EDWARDS 09/01/2019 12:25:01 PM EDT [facility] Outpatient Attender: MONIQUE Brown MONIQUE FP 08/05/2019 12:46:00 PM EDT [facility] Outpatient Attender: Prema Kevin AMAYA-BC FP 08/05/2019 12: 45:01 PM EDT [facility] Outpatient Attender: MONIQUE Brown TRAFFIC SIGN ERECTION SUPERVISOR FP 08/05/2019 12:06:00 PM EDT [facility] Outpatient Attender: MONIQUE Brown MONIQUE FP 08/05/2019 12:04:01 PM EDT [facility] Outpatient Attender: MONIQUE Kevin AMAYA FP 08/05/2019 12:03:01 PM EDT [facility] Outpatient Attender: MONIQUE Kevin AMAYA FP 08/05/2019 10:11:00 AM EDT [facility] Outpatient Attender: Prema Kevin AMAYA-BC FP 08/05/2019 08: 54:01 AM EDT [facility] Outpatient Attender: TRAFFIC SIGN ERECTION SUPERVISORLatrice AMAYA FP 08/05/2019 08:31:01 AM EDT [facility] Outpatient Attender: HERNESTO MUÑOZ [facility] 07/13 10:30:00 AM EDT MEDENT ([facility] Outpatient Attender: CRISTINO SCHMIDT [id number] 07/23/2019 12:00: 00 AM [facility] Outpatient Attender: TRAFFIC SIGN ERECTION SUPERVISORLatrice AMAYA FP 06/18/2019 02:55:01 PM EST [address] [phone] 04/19/2019 12:00:00 AM EST eCW1 ([facility]) Medications Medication Brand Name Start Date Product Form Dose Route Admi nistrative Instructions Pharmacy Instructions Status Indications Reaction Description Data Source(s) Amoxicillin 500 MG Oral Capsule Amoxicillin 05/23/2020 12:00:00 AM EST ORAL active [facility] 500 mg 05/23/2020 12:00:00 [...] ONE TABLET BY MOUTH EVERY DAY AT [facility] DIRECTED SOLD: 04/10/2020 [facility] [...] after showers. Avoid face and groin area. [facility] Xerosis cutis Keratosis pilaris Clindamycin 10 MG/ML Topical Solution Cl indamycin Phosphate 1 % External Solution (CLEOCIN T) Clindamycin Phosphate 1 % External Solution (CLEOCIN T ) 01/25/2020 12:00:00 AM EDT active Acne vulgaris Apply BID to AFFECTED AREAS [facility] Acne vulgaris 1 % 01/25/2020 [...] Tablet (VALTREX) 01/18/2020 12:00:00 AM EDT active [facility] 10 mg 01/12/2020 12:00:00 AM EDT tablet [...] 1.0 {tablet} active Valtrex 500 MG eCW1 ([facility]) 300 mg 09/01/2019 12:00:00 AM EDT [...] 12:00:00 AM EST active 1 tablet eCW1 ([facility]) Metronidazole 500 MG Oral Tablet Metronidazole 500 MG 2019 12:00:00 AM EST 1.0 {tablet} active Metronidazo le 500 MG eCW1 ([facility]) 500 mg 04/19/2019 12:00:00 AM EST [...] completed cephalexin 50 0 MG Oral Capsule BELLE CHASSE ([facility]) Emergen-C completed Emergen-C [place]ASSE ([facility]) Fluarix Quad (PF) 60 mcg (15 m cg x 4)/0.5 mL IM syringe ADMINISTER 0.5ML IN THE MUSCLE DIRECTED [id number] compl eted 0.5 ML influenza A virus A/[facility]/[id number] (H1N1) antigen 0.03 MG/ML / influenza A virus A/Eason Otis (H3N2) antigen 0.03 MG/ML / influenza B virus B/[facility] antigen 0.03 MG/ML / influenza B virus B/ antigen 0.03 MG/ML Prefilled Syringe [Fluarix Quadrivalent ] BELLE CHASSE ([facility]) Cholecalciferol 1000 UNT Oral Tablet cho lecalciferol (vitamin D3) 25 mcg (1,000 unit) tablet TAKE ONE TABLET BY MOUTH EVERY DAY cholecalciferol (vitamin D3) 25 mcg (1,000 unit) tablet TAKE ONE TABLET BY MOUTH EVERY DAY completed cholecalciferol 0.025 MG Oral Ta blet SCOTTY ([facility]) Hydroxyzine Hydrochloride 10 MG Oral Tablet hydroxyzin e HCl 10 mg tablet hydroxyzine HCl 10 mg tablet completed hydroxyzine hydrochloride 10 MG Oral Tablet SCOTTY ([facility]) Ciprofloxacin 3 MG/ML Ophthalmic Solution ciprofloxaci n 0.3 % eye drops ciprofloxacin 0.3 % eye drops complete d ciprofloxacin 3 MG/ML Ophthalmic Solution SCOTTY ([facility]) Cholecalciferol 1000 UNT Oral Capsule Vi tamin D3 25 mcg (1,000 unit) capsule TAKE 1 CAPSULE BY MOUTH ONCE DAILY Vitamin D3 25 mcg (1,000 unit) capsule T JUANY 1 CAPSULE BY MOUTH ONCE DAILY completed cholecalciferol 0.025 MG Oral Capsule SCOTTY ([facility]) Metronidazole 500 MG Oral Tablet metroni dazole 500 mg tablet TAKE ONE TABLET BY MOUTH THREE TIMES A DAY FOR 7 DAYS metronidazole 500 mg tablet TAKE ONE TAB LET BY MOUTH THREE TIMES A DAY FOR 7 DAYS completed metronidazole 500 MG Oral Tablet SCOTTY ([facility]) d3-1000 25 mcg (1000 ut) caps c ompleted d3-1000 25 mcg (1000 ut) caps SCOTTY ([facility]) alfalfa completed alfalfa ATHE NA ([facility]) Insurance Providers Payer name Policy type / Coverage type Policy ID Covered democrat ID Covered democrat's relationship to collins Policy Collins Plan Information MEDICARE [id number] SP [id number] [facility] COMMUNITY PLAN MCDO [id number] SP [id number] SELF PAY ONLY [id number] SP [id number] [facility] RAISA [id number] SP [id number] [facility] I [id number] Self [id number] MEDICAID M [id number] Self [id number] [facility] I [id number] Self [id number] Managed Care - [facility] Community Plan P [id number] S [id number] Medicaid S [id number] S [id number] [facility] RAISA [id number] SP [id number] [facility] RAISA [id number] SP [id number] Managed Care - [facility] Community Plan P [id number] S [id number] Medicaid S [id number] S [id number] UNITED HE[employer]CARE(MCAID) O [id number] S [id number] [facility](MCAID) O [id number] S [id number] UNHC COMMUNITY PLAN [id number] [id number] SP [id number] MEDICAID [id number] SP [id number] MEDICAID M [id number] S [id number] [place] BCBS B [id number] S [id number] Medicaid [place] Medicaid [id number] Self [id number] MEDICAID M [id number] Self [id number] Medicaid [place] [id number] Self [id number] AETNA [id number] SP [id number] [place] PPO 302/307 [id number] SP [id number] [place] 302/307 [id number] SP [id number] [place] PPO 302/307 [id number] SP [id number] Medicaid [place] [id number] Self [id number] [place] [id number] Self [id number] BLUE CROSS [id number] SP [id number] [place] [id number] SP [id number] BLUE CROSS UNAVAILABLE UNAVAIL ABLE BLUE CARD C [id number] Self [id number] SELF PAY ONLY NONE SP NONE BLUE CARD C [id number] Self [id number] [place] PPO 302/307 [id number] SP [id number] [employer] BCBS Health Maintenance Organization (HMO) [id number] Self [id number] [employer] Health Maintenance Organization (HMO) [id number] Self [id number] [place]BS [place] PPO 302/307 [id number] SP [id number] MEDICAID M [id number] Self [id number] [employer] Health Maintenance Organization (HMO) [id number] Self [id number] [place]BS [place] PPO 302/307 [id number] SP [id number] [employer] Health Maintenance Organization (HMO) [id number] Self [id number] UHC [id number] Self [id number] BCBS [place] PPO 302/307 [id number] SP [id number] UHC I [id number] Self [id number] [place] Raisa/MCR Health Maintenance Organization (HMO) [id number] Self [id number] UNHC COMMUNITY PLAN MCDO [id number] SP [id number] [facility] [id number] SP [id number] [facility](MCAID) O [id number] S [id number] MVP H [id number] Self [id number] [place] PHY [id number] SP [id number] [facility] Community Plan Medigap Part B Self BC/BS Of [place] Commercial Self MEDICAID M [id number] Self [id number] EXCELLUS I [id number] Self [id number] BLUE CHOICE OPTION O [id number] S [id number] MEDICAID W [id number] S [id number] BLUE CHOICE OPTION UNAVAILABLE UNAVAILABLE BLUE CROSS NUNN PLAN [id number] SP [id number] [employer] NO FAULT [id number] SP [id number] Problems, Conditions, and Diagnoses Code Display Name Description Problem Type Effective Dates Data Source(s) 729929456 Dyspnea, unspecified Dyspnea, unspecified 09/29/2019 03:44:35 PM EDT [facility] [id number] Dyspnea Dyspnea Problem 09/29/2019 12:0 0:00 AM EDT - 04/28/2020 12:00:00 AM EST SCOTTY ([facility] er) 788.30 Urinary incontinence Urinary incontinence 08/04 12:44:06 PM EDT [facility] [id number] Urinary incontinence Urinary Incontinence Problem 08/05/2019 12:00:00 AM EDT SCOTTY ([facility] er) [id number] Pain in limb Pain in limb Problem 04/01/2019 12:00:00 A M EST MEDENT ([facility] [id number] Ingrowing nail Ingrowing nail Problem 04/01/2019 12:00: 00 AM EST MEDENT ([facility] [id number] Procedure by method Procedure by Method Problem 0 12/30/2018 12:00:00 AM EDT - 04/28/2020 12:00:00 AM EST SCOTTY ([facility]) L85.3 Xerosis cutis Xerosis cutis Diagnosis 01/25/2020 02:34:52 PM T [facility] D18.01 Hemangioma of skin and subcutaneous tiss ue Hemangioma of skin and subcutaneous tissue Diagnosis 01/25/2020 02:34:[address] [facility] I78.1 Nevus, non-neoplastic Nevus, non-neoplastic Diagnosis 01/25/2020 02:34:33 PM T [facility] L81.4 Other melanin hyperpigmentation Other melanin hyperpig mentation Diagnosis 01/25/2020 02:34:28 PM [facility] D22.9 Melanocytic nevi, unspecified Melanocytic nevi, unspec ified Diagnosis 01/25/2020 02:34:26 PM [facility] L70.0 Acne vulgaris Acne vulgaris Diagnosis 01/25/2020 02:34:23 PM [facility] L85.8 Other specified epidermal thickening Other speci fied epidermal thickening Diagnosis 01/25/2020 02:06:19 PM [facility] Surgeries/Procedures Procedure Description Date Indications Data Source(s) INCISION & DRAINAGE ABSCESS SIMPLE/SINGLE 07/23/2019 1 2:00:00 AM EDT MEDENT ([facility] SMEAR, WET MOUNT, SALINE/INK 04/19/2019 12:00:00 AM ES T eCW1 ([facility]) Results ID Date Data Source [id number] 05/21/2020 09:02:00 AM EST MEDENT ([facility]) Name Value Range Interpretation Code Description Data Ronit rce(s) Supporting Document(s) Bacteria identified in Throat by Culture [facility] FULL REPORT IN LAB NOTES (eCW and Medent ). ORGANISM 1: STREPTOCOCCUS GROUP G QUANTITY OF GROWTH HEAVY ORGANISM 1: STREPTOCOCCUS GROUP G ID Date Data Source [id number] 05/21/2020 12:00:00 AM EST [facility] Name Value Range Interpretation Code Description Data Ronit rce(s) Supporting Document(s) SARS-CoV2 Rapid Antigen Negative [facility] This lab was reported by [facility]. ID Date Data Source [id number] 05/12/2020 12:00:00 AM EST [facility] Name Value Range Interpretation Code Description Data Ronit rce(s) Supporting Document(s) SARS-CoV-2 (COVID-19) RNA [Presence] in Respiratory specimen by MARY with probe detection Not Detected [facility] This lab was ordered by [facility] and reported by [facility]. ID Date Data Source [id number] 01/25/2020 05:31:[address] [facility] Name Value Range Interpretation Code Description Data Ronit rce(s) Supporting Document(s) Progress Note [facility] [id number] lbm [file] [id number] ID Date Data Source [id number] 09/30/2019 10:25:00 AM EDT [facility] Name Value Range Interpretation Code Description Data Ronit rce(s) Supporting Document(s) SARS CORONAVIRUS 2 RNA [facility] This lab was ordered by [facility] and reported by [facility]. ID Date Data Source [id number] 08/05/2019 10:20:51 AM EDT [facility] and depression Surgical History:1995 breast reduction teeth [id number] cyst removed from head 2014 cyst removed [...] during this visit, including review of any zfwa-ozp-mqqrilp medications, herbal therapies, and/or supplements.Allergy ReviewAllergy List [...] GoodAssessment & Plan Problems:Added: Urinary incontinence (ICD-788.30) ([id number])Assessment not SavedUrinary incontinence (AEB82-J80): check UAMedications:MELOXICAM 15 MG ORAL TABLETEQL VITAMIN D3 1000 UNIT ORAL CAPSULETRAZODONE HCL 50 MG ORAL TABLETABILIFY 10 MG ORAL TABLETBUPROPION HCL ER (XL) 300 MG ORAL TABLET EXTENDED RELEASE 24 HOURTOPAMAX 25 MG ORAL TABLETVITAMIN D3 77697 UNIT ORAL TABLETAllergies:No Known Allergies (updated 12/30/2018) Name Value Range Interpretation Code Description Data Ronit rce(s) Supporting Document(s) ID Date Data Source CHLAMYDIA & GC DNA AMPLIFICAT 04/19/2019 12:00:00 AM EST eCW 1 ([facility]) Name Value Range Interpretation Code Description Data Ronit rce(s) Supporting Document(s) Chlamydia trachomatis rRNA [Presence] in Unspecified specimen by Probe and target amplification method NEGATIVE NEGATIVE CHLAMYDIA DNA AMPLIFICATION eCW1 ([facility]) Procedure Social History Code Duration Value Status Description Data Source(s ) Alcohol intake 01/25/2020 12:00:00 AM EDT Current non-d john of alcohol (finding) completed Current non-drinker of alcohol (finding) [facility] Tobacco use and exposure 01/25/2020 12:00:00 AM EDT Never used co mpleted Never used [facility] Cigarette pack-years 01/25/2020 12:00:00 AM EDT UNK completed [facility] Cigarettes smoked current (pack per day) - Reported 01/25/20 20 12:00:00 AM EDT UNK completed [facility] Smoking 01/25/2020 12:00:00 AM EDT Former smoker completed Former smoker [facility] Smoking 04/19/2019 12:00:00 AM EST Never Smoker completed Never S moker eCW1 ([facility]) Vital Signs ID Date Data Source UNK Name Value Range Interpretation Code Description Data Source(s) Body weight 158.00 [lb_av] 158.00 [lb_av] MEDEN T ([facility], [facility]) Body temperature 97.3 [degF] 97.3 [degF] MEDENT ([facility], [facility]) Oxygen saturation in Arterial blood by Pulse oximetry 99 % 99 % MEDENT ([facility], [facility]) Respiratory rate 16 /min 16 /min MEDENT ( [facility], [facility]) Heart rate 98 /min 98 /min MEDENT ([facility]) Diastolic blood pressure 71 mm[Hg] 71 mm[Hg] MEDENT ([facility], [facility]) Systolic blood pressure 104 mm[Hg] 104 mm[Hg] M EDENT ([facility], [facility]) Body weight 2642 [oz_av] 2642 [oz_av] SCOTTY ([facility]) Systolic blood pressure 135 mm[Hg] 135 mm[Hg] A [facility] ([facility]) Body mass index (BMI) [Ratio] 29.3 kg/m2 29.3 k g/m2 BELLE CHASSE ([facility]) Body height 63 [in_i] 63 [in_i] BELLE CHASSE ([facility]) Diastolic blood pressure 79 mm[Hg] 79 mm[Hg] SCOTTY ([facility]) Body weight 2576 [oz_av] 2576 [oz_av] SCOTTY ([facility]) Systolic blood pressure 136 mm[Hg] 136 mm[Hg] A [facility] ([facility]) Body height 63 [in_i] 63 [in_i] SCOTTY ([facility]) Diastolic blood pressure 88 mm[Hg] 88 mm[Hg] SCOTTY ([facility]) Body mass index (BMI) [Ratio] 29.2 [...] blood pressure 86 mm[Hg] 86 mm[Hg] eCW1 ([facility]) Systolic blood pressure 132 mm[Hg] 132 mm[Hg] e CW1 ([facility]) Body mass index (BMI) [Ratio] 28.45 kg/m2 28.45 kg/m2 W1 ([facility]) Body height 63 [in_us] 63 [in_us] eCW1 ([facility]) Body weight Measured 160.6 [lb_av] 160.6 [lb_av ] eCW1 ([facility]) ID Date Data Source [id number] 01/25/2020 05:31:[address] [facility] Name Value Range Interpretation Code Description Data Source(s) WEIGHT RECORDED 165 lb 165 lb [facility] Body height Measured 63.5 in 63.5 in [facility] Patient Treatment Plan of Care Planned Activity Planned Date Details Description Data Source (s) ammonium lactate 120 MG/ML Topical Lotion 01/25/2020 12:00:00 AM ED T [facility] Clindamycin 10 MG/ML Topical Solution 01/25/2020 12:00:00 AM [facility] valacyclovir 500 MG Oral Tablet 01/18/2020 12:00:00 AM T [facility] valacyclovir 500 MG Oral Tablet [Valtrex] 09/21/2019 12:00:00 AM ED T eCW1 ([facility]) Metronidazole 500 MG Oral Tablet 04/19/2019 12:00:00 AM EST eCW1 ([facility]) Metronidazole 500 MG Oral Tablet 04/19/2019 12:00:00 AM EST eCW1 ([facility]) Cholecalciferol 1000 UNT Oral Capsule [facility] [facility]) Metronidazole 500 MG Oral Tablet SCOTTY ([facility]) Hydroxyzine Hydrochloride 10 MG Oral Tablet SCOTTY ([facility]) Fluarix Quad (PF) 60 mcg (15 m cg x 4)/0.5 mL IM syringe ADMINISTER 0.5ML IN THE MUSCLE DIRECTED SCOTTY ([facility]) Emergen-C SCOTTY ([facility]) d3-1000 25 mcg (1000 ut) caps SCOTTY ([facility]) Ciprofloxacin 3 MG/ML Ophthalmic Solution SCOTTY ([facility]) Cholecalciferol 1000 UNT Oral Tablet SCOTTY ([facility]) Cephalexin 500 MG Oral Capsule SCOTTY ([facility]) alfalfa SCOTTY ([facility])
[2020-05-29] MEDS ORDERED: NS 1,000 ML IV SCH (05:00)
[2020-05-29] MEDS ORDERED: LEVALBUTEROL 1.25 MG/0.5 ML CONCENTRATE NEB INH PRN (05:00)
[2020-05-29] MEDS: methylPREDNISolone 125MG 2ML VIAL IV SCH ×3 (05:21→20:02)
--- NOTE | 2020-05-29 05:23 | REPVR ---
PROCEDURE INFORMATION: Exam: CT Chest Without Contrast; Diagnostic Exam date and time: 05/29/2020 5:09 AM Age: 39 years old Clinical indication: Chest pain; Additional info: Hypoxia and dyspnea, cxr opacity TECHNIQUE: Imaging protocol: Diagnostic computed tomography of the chest without contrast. 3D rendering (Not supervised by radiologist): MIP and/or 3D reconstructed images were created by the technologist. Radiation optimization: All CT scans at this facility use at least one of these dose optimization techniques: automated exposure control; mA and/or kV adjustment per patient size (includes targeted exams where dose is matched to clinical indication); or iterative reconstruction. COMPARISON: 1. CT ANGIO CHEST 2019-02-12 15:57 2. CR PORTABLE CHEST X-RAY 2020-05-29 02:02 FINDINGS: Lungs: Pulmonary edema with interstitial thickening. Pleural spaces: Small to medium bilateral pleural effusions. Heart: Mild cardiac enlargement. Small pericardial effusion. Aorta: Unremarkable. No aortic aneurysm. Lymph nodes: Unremarkable. No enlarged lymph nodes. Bones/joints: Unremarkable. No acute fracture. Soft tissues: Unremarkable. IMPRESSION: Pulmonary effusions and interstitial and airspace disease, suspect pulmonary edema. Cannot exclude infection. Electronically signed by: Heath Hudson On 05/29/2020 05:23:24 AM
--- NOTE | 2020-05-29 05:27 | HPEPDOC ---
General Date of Admission May 29, 2020 at 04:46 Date of Service: May 29, 2020 Chief Complaint The patient is a 39-year-old female admitted with a reason for visit of dyspnea and JONAS. Source: Patient History of Present Illness Ms. Dubois is a 39 year old female with anxiety, asthma, substance abuse, and history of psychosis who came to the ED for dyspnea and found to have JONAS. On 05/21/2020, she was diagnosed with Strep throat (culture positive for Streptococcus Group G). She had a sore throat a few days prior which prompted the test. She was given amoxicillin which resolved the pain. About a couple days ago, she woke up feeling dyspneic. Worse with ambulation and at night. She denies fever or productive cough. Dyspnea continued to progressively worsen and she came into the ED. She was given dexamethasone and breathing treatments. She was initially doing well at room air, but when I went down to see her, she was desaturating to 87% while on 2 liters. She was very anxious. She was tripoding and had trouble completing sentences. Auscultation demonstrated poor air m ovement and there diffuse crackles. She was given a breathing treatment. She felt better afterwards. She was mouth breathing because her nose was congested. Switched to her venti-mask. I was planning for NIPPV as she was not doing well, but after additional solumedrol she seeming to be breathing better and lungs were clearer. Otherwise, she tells me that she still smokes but she is trying to quit. She uses meth, cocaine, and Maryjo. Sometimes she snorts. She has been uses these drugs a little more frequent this past week. Also, she has been using naproxen frequently for headaches which would contribute to her acute kidney injury. Also suspecting her valacyclovir contributing to her acute kidney injury. She was started on valacyclovir a year ago for herpes. Patient will be admitted for hypoxic respiratory distress and acute kidney injury. Home Medications Scheduled Amoxicillin (Amoxicillin) 500 Mg Capsule, 500 MG PO TID, (Reported) Aripiprazole (Aripiprazole) 10 Mg Tab, 10 MG PO QHS, (Reported) TAKE WITH 2MG TAB. TOTAL OF 12MG QHS Aripiprazole (Aripiprazole) 2 Mg Tab, 2 MG PO QHS, (Reported) TAKE WITH 10MG. TOTAL OF 12MG QHS Bupropion HCl (Bupropion Xl) 300 Mg Tab.er.24h, 300 MG PO DAILY, (Reported) Cholecalciferol (Vitamin D3) (Vitamin D3) 1,000 Unit Tablet, 1,000 UNITS PO DAILY, (Reported) Meloxicam (Meloxicam) 15 Mg Tablet, 15 MG PO DAILY, (Reported) Topiramate (Topiramate) 25 Mg Tablet, 25 MG PO BID, (Reported) Valacyclovir HCl (Valacyclovir) 500 Mg Tablet, 500 MG PO DAILY, (Reported) Scheduled PRN Albuterol Sulf (Albuterol Sulfate) 2.5 Mg/3 Ml Vial.neb, 2.5 MG INH for SHORTNESS OF BREATH, (Reported) Albuterol Sulfate (Albuterol Sulfate Hfa) 8.5 Gm Hfa.aer.ad, 2 PUFFS INH Q4H PRN for SOB/WHEEZING, (Reported) Allergies Coded Allergies: ENVIROMENTAL (Verified Allergy, Unknown, 08/21/19) Past Medical History Medical History 1. Anxiety 2. Depression 3. Asthma 4. History of SI 5. History of psychosis 6. Polysubstance abuse 7. Asthma Surgical History 1. Status post suboccipital craniectomy/cranioplasty, Lytic occipital bone lesion removed, history of Langerhans Cell histiocytosis. 2. Breast reduction 3. Ovarian cyst removal 4. Bartholin's cyst removal 5. [place] teeth extraction Family History Denies knowledge of any medical history in her parents Social History * Smoker: current smoker (smoked for 20 years, trying to quit) Alcohol: Denies Drugs: cocaine, heroin, marijuana, other (Maryjo) A-FIB/CHADSVASC A-FIB History Current/History of A-Fib/PAF?: No Review of Systems Constitutional: Denies: Chills, Fever Eyes: Denies: Eyelid inflammation ENT: Reports: Sinus Congestion; Denies: Sore Throat (had sore throat a week ago, but now resolved) Skin: Denies: Rash Pulmonary: Reports: Dyspnea, Cough (no cough prior, but had cough with clear sputum after breathing treatment here) Cardiovascular: Denies: Chest Pain Gastrointestinal: Denies: Abdominal Pain, Diarrhea Genitourinary: Denies: Dysuria Hematologic: Denies: Bruising Psych: Reports: Anxiety Physical Examination General Exam: Positive: Alert, Cooperative, Moderate Distress (respiratory) Eye Exam: Positive: EOMI; Negative: Sclera icteric ENT Exam: Positive: Atraumatic, Tongue Midline Neck Exam: Positive: Supple Chest Exam: Positive: Diminished, Other (coarse) Heart Exam: Positive: Tachycardic, Regular Rhythm Abdomen Exam: Positive: Normal bowel sounds, Soft; Negative: Tenderness Extremity Exam: Positive: Edema (mild pitting) Neuro Exam: Positive: Cranial Nerves 3-12 NL Psych Exam: Positive: Anxiety (very anxious) Vital Signs Vital Signs Date Time Temp Pulse Resp B/P (MAP) Pulse Ox O2 Delivery O2 Flow Rate FiO2 05/29/20 03:53 97 94 05/29/20 03:45 152/82 (105) 05/29/20 02:00 96.8 20 Room Air Laboratory Data Labs 24H Laboratory Tests 2 05/29/20 01:41: Immature Granulocyte % (Auto) 0.4, Neutrophils (%) (Auto) 72.1H, Lymphocytes (%) (Auto) 19.3L, Monocytes (%) (Auto) 6.3H, Eosinophils (%) (Auto) 1.4, Basophils (%) (Auto) 0.5, Neutrophils # (Auto) 9.6H, Lymphocytes # (Auto) 2.6, Monocytes # (Auto) 0.9H, Eosinophils # (Auto) 0.2, Basophils # (Auto) 0.1, Nucleated Red Blood Cells % (auto) 0.0, Anion Gap 8, Glomerular Filtration Rate 29.5L, Calcium Level 9.0, Total Creatine Kinase 81, Creatine Kinase MB 2.0, Creatine Kinase MB Relative Index 2.47, Troponin I < 0.02, TY-Ynh-W-Type Natriuretic Peptide 1221H 05/29/20 02:10: SARS Antigen (LFIA) NEGATIVE 05/29/20 03:33: Urine Color STRAW, Urine Appearance CLEAR, Urine pH 6.0, Urine Specific [place] 1.006, Urine Protein 1+H, Urine Glucose (UA) NEGATIVE, Urine Ketones NEGATIVE, Urine Blood 2+H, Urine Nitrite NEGATIVE, Urine Bilirubin NEGATIVE, Urine Urobilinogen 0.2, Urine Leukocyte Esterase NEGATIVE, Urine WBC (Auto) 1, Urine RBC (Auto) 17H, Urine Hyaline Casts (Auto) 0, Urine Bacteria (Auto) NEGATIVE, Urine Squamous Epithelial Cells 0, Urine Sperm (Auto) 05/29/20 04:24: Blood Gas Bicarbonate Standard 17.2L, Arterial Blood pH 7.284L, Arterial Blood Partial Pressure CO2 35.9, Arterial Blood Partial Pressure O2 82.0, Arterial Blood Total CO2 17.7L, Arterial Blood HCO3 16.6L, Arterial Blood Base Excess - 9.2L, Arterial Blood Oxygen Saturation 94.7L CBC/BMP Laboratory Tests 05/29/20 01:41 Microbiology Microbiology 05/29/20 Respiratory Virus Panel (PCR) ([facility]) - Final, Complete Assessment/Plan Ms. Dubois is a 39 year old female with anxiety, asthma, substance abuse, and history of psychosis who came to the ED for dyspnea and found to have JONAS. Acute kidney injury would be secondary to NSAIDS. Possibly valacyclovir. Will hold both meloxicam and valacyclovir. She has been hypoxic. Will order CT chest without contrast due to JONAS. Will schedule steroids and breathing treatments. Will also check a procalcitonin Plan / VTE VTE Prophylaxis Ordered?: Yes Plan Plan 1. Dyspnea/Hypoxia -Coarse and diminished breath sounds -Will order CT chest to further evaluate -Scheduled steroids and breathing treatments -Will order V-Q scan and echocardiogram 2. Acute kidney injury -Secondary to meloxicam -Suspecting valacyclovir as well -Holding nephrotoxic agents and starting IVF 3. Anxiety/depression and history of psychosis -Continue aripiprazole and bupropion -Hold Topamax. Restart when renal function improves 4. Pleural effusion -CT chest demonstrated mild/moderate pleural effusion. Discussed with patient. She tells me that she always have fluid in her lung. -Cannot find old image demonstrating this fluid -Order echocardiogram -Give IVF slowly. May need to discontinue and start IV lasix if respiratory status worsening. Other option would be NIPPV. 5. DVT ppx -SCD and TEDs Disposition: She was not doing well with the ventimask and was going to start NIPPV and send to the ICU. She seem have responded to have responded to the addition solumedrol. Will have her on ICU for now for close monitoring. Can consider downgrading if she does better later today. GEMINI FRAZIER DO May 29, 2020 05:26
[2020-05-29] MEDS ORDERED: cefTRIAXone SOD 1 GM in D5W MINI-BAG PLUS 50 ML IV SCH (06:00)
[2020-05-29 06:03] LABS: HEMATOCRIT 37.9 % (36.0-47.0); HEMOGLOBIN 12.7 g/dl (12.0-15.5); MEAN CORPUSCULAR HEMOGLOBIN 30.8 pg (27.0-33.0); MEAN CORPUSCULAR HGB CONC 33.5 g/dl (32.0-36.5); MEAN CORPUSCULAR VOLUME 91.8 fl (80.0-96.0); PLATELET COUNT, AUTOMATED 294 10^3/uL (150-450); RED BLOOD COUNT 4.13 10^6/uL (4.00-5.40); WHITE BLOOD COUNT 15.3 10^3/uL (4.0-10.0)
[2020-05-29 06:24] LABS: CALCIUM LEVEL 8.3 MG/DL (8.5-10.1); CREATININE FOR GFR 1.66 MG/DL (0.55-1.30); GLOMERULAR FILTRATION RATE 36.6 (>60)
[2020-05-29 06:50] LABS: AMPHETAMINES LEVEL URINE NEGATIVE (NEGATIVE); BARBITURATES URINE NEGATIVE (NEGATIVE); BENZODIAZEPINES URINE NEGATIVE (NEGATIVE); CANNABINOIDS URINE NEGATIVE (NEGATIVE); COCAINE METABOLITE URINE NEGATIVE (NEGATIVE); METHADONE URINE NEGATIVE (NEGATIVE); OPIATES URINE NEGATIVE (NEGATIVE); PHENCYCLIDINE URINE NEGATIVE (NEGATIVE)
[2020-05-29 06:53] LABS: CREATININE,RANDOM URINE 62.9 MG/DL
[2020-05-29] MEDS: LEVALBUTEROL 1.25 MG/0.5 ML CONCENTRATE NEB INH SCH ×5 (07:40→23:50)
[2020-05-29] MEDS ORDERED: DOXYCYCLINE HYCLATE 100 MG in D5W MINI-BAG PLUS 100 ML IV SCH (08:00)
[2020-05-29 08:41] LABS: ABG BASE EXCESS -5.4 (-2.0-2.0); ABG HCO3 18.2 MEQ/L (22.0-26.0); ABG O2 SATURATION 98.3 % (95.0-99.0); ABG PARTIAL PRESSURE CO2 30.4 mmHg (35.0-45.0); ABG PARTIAL PRESSURE O2 111.1 mmHg (75.0-100.0); ABG STANDARD HCO3 20.1 MEQ/L (22.0-26.0); ABG TOTAL CO2 19.1 MEQ/L (22.0-29.0); ABG pH (ARTERIAL) 7.395 UNITS (7.350-7.450)
[2020-05-29 08:44] LABS: C REACTIVE PROTEIN QUANTITATIV 1.02 MG/DL (0.00-0.30); FREE T4 1.28 NG/DL (0.76-1.46)
[2020-05-29] MEDS ORDERED: TOPIRAMATE (TopAMAX) 25 MG TAB PO SCH (09:00)
[2020-05-29] MEDS: buPROPion **XL** TABLET 150MG (WELLBUTRIN XL) PO SCH (09:21)
[2020-05-29] MEDS: VITAMIN D 1,000 INTERNATIONAL UNITS TABLET PO SCH (09:22)
[2020-05-29 10:33] LABS: FIBRINOGEN 369 MG/DL (221-452); PROTHROMBIN TIME 14.4 SECONDS (12.5-14.3)
[2020-05-29 10:54] LABS: D-DIMER QUANT > 4000 ng/ml (<500)
[2020-05-29] MEDS ORDERED: LABETALOL 100MG/20ML VIAL IV STA (11:27)
[2020-05-29] MEDS ORDERED: HEPARIN DRIP 25,000 UNITS in IV 1 EA IV SCH (11:53)
[2020-05-29] MEDS ORDERED: HEPARIN SOD (PORCINE) 5000UNITS/ML 1ML VIAL/SYRINGE IV PRN (12:00)
--- NOTE | 2020-05-29 12:04 | IPNPDOC ---
Text Note Date of Service The patient was seen on 05/29/20. NOTE Subjective: Patient was seen and examined this morning at bedside. She tells me she feels a little better since she was in the emergency department. There have not been any acute changes or condition. She is trying to be titrated off of the Ventimask to nasal cannula. She still feels short of breath. She denies any chest pain. Currently she is on 6 L Ventimask. Objective: Constitutional: Awake and alert, in mild apparent distress ENT: Sclera are clear. Respiratory: Lungs mild crackles at bases bilaterally. Some mild tachypnea. No use of accessory muscles. Cardiovascular: RRR S1 and S2 are normal, no murmur Gastrointestinal: Abdomen is soft, non distended, non tender Musculoskeletal: No peripheral edema. No joint deformities. RUE 5/5, LUE 5/5, BLE 5/5 Neurologic: No focal neurological deficit. Mental Status: A&O x3, normal affect Skin: Warm, dry Assessment/plan: Ms. Dubois is a 39 year old female with anxiety, asthma, substance abuse, and history of psychosis who came to the ED for dyspnea and found to have JONAS. Acute kidney injury would be secondary to NSAIDS. Possibly valacyclovir. Patient admitted for further medical management. # Acute hypoxic respiratory failure: - Etiology is unclear at this point. She is requiring 6 L on Ventimask. Could be underlying interstitial lung disease versus pulmonary edema. - Does not appear to be infectious her calcitonin is negative I discontinued her antibiotics. I suspect her elevated cytosis may be due to steroids. - With her elevated d-dimer as well as her dyspnea I will treat her as if she has a pulmonary embolus until he can prove otherwise with heparin drip. I'm avoiding CT angiography with contrast to avoid worsening her renal function. I did order a stat VQ scan but she may not be able to tolerate the test. - I discussed her case with recycle driver Dr. Guillaume, she reviewed the CT of her lungs, she advised that the patient has a lot of fluid on her lungs and may benefit from diuresis. I will do a trial of diuresis and observe the patient and await the stat echo and possibly the VQ scan if possible. I will reassess the patient later and possibly consult Dr. Guillaume if needed. - There could be underlying interstitial lung disease and if the echo is unrevealing she may need further workup. - Her JONAS appears to be improving and likely provoked by NSAID/valacyclovir use, I'm okay to diuresis her and monitor her BMP. Should her renal function worsen in nephrology consult would be warranted at that time. # Acute kidney injury: This is suspected to be drug-induced from valacyclovir/meloxicam use. Initially received some IV fluids and her renal function did improve. Given her pulmonary edema she would probably benefit more from diuresis at this point to prevent worsening of her pulmonary function. We'll keep a close eye on her renal function as well and if it worsens we'll consult nephrology. # Anxiety/depression and history of psychosis: Continue aripiprazole and bupropion for now hold Topamax due to JONAS # DVT prophylaxis: Heparin drip Critical care time: 40 minutes. A Bambi Hospitalist VSAura, I+O VSAura I+O Laboratory Tests 05/29/20 01:41 05/29/20 05:47 Vital Signs Date Time Temp Pulse Resp B/P (MAP) Pulse Ox O2 Delivery O2 Flow Rate FiO2 05/29/20 11:36 105 179/106 05/29/20 11:09 96 05/29/20 08:00 98.3 34 Venturi Mask 6.0 28 I&O- Last 24 Hours up to 6 AM 05/29/20 06:00 Intake Total 0 ml Output Total 850 ml Balance -850 ml NOREEN SPEAR MD May 29, 2020 12:04
[2020-05-29 12:20] LABS: PARTIAL THROMBOPLASTIN TIME 31.8 SECONDS (24.2-38.5)
[2020-05-29] MEDS: FUROSEMIDE 40MG/4ML VIAL (J1940) IV SCH ×2 (12:48→17:04)
[2020-05-29] MEDS ORDERED: LORazepam 2 MG/ML VIAL IV STA (13:07)
[2020-05-29] MEDS ORDERED: LORazepam 2 MG/ML VIAL As Ordered ONE (13:13)
[2020-05-29] MEDS ORDERED: ARIPiprazole 2 MG TAB PO SCH (21:00)
[2020-05-29] MEDS ORDERED: ARIPiprazole 10 MG TAB PO SCH (21:00)
--- NOTE | 2020-05-29 22:07 | ECGEPIP ---
[facility] Test Date: 2020-05-29 Pat Name: ROOPA CAMARENA Department: Room: [place] [address] Gender: Female Patient Financial Counselor: : 1980 Requested By: NOREEN Marshall Order Number: [id number] Reading MD: Ozzie Bower Measurements Intervals [place] Rate: 96 P: 61 ID: [id number] QRS: 77 QRSD: 84 T: 43 QT: 368 QTc: 464 Interpretive Statements Normal sinus rhythm Possible Left atrial enlargement Incomplete right bundle branch block Consider prior septal infarct, age undetermined Compared to prior tracing of 07/22/2018, heart rate is faster Electronically Signed on 05-29-2020 22:06:46 EST by Ozzie Bower
[2020-05-30] VITALS (13 sets, daily range): BP systolic 106–132; BP diastolic 55–75
[2020-05-30 02:51] LABS: HEMATOCRIT 37.2 % (36.0-47.0); HEMOGLOBIN 12.6 g/dl (12.0-15.5); MEAN CORPUSCULAR HEMOGLOBIN 30.7 pg (27.0-33.0); MEAN CORPUSCULAR HGB CONC 33.9 g/dl (32.0-36.5); MEAN CORPUSCULAR VOLUME 90.7 fl (80.0-96.0); PLATELET COUNT, AUTOMATED 291 10^3/uL (150-450); WHITE BLOOD COUNT 28.9 10^3/uL (4.0-10.0)
[2020-05-30 03:38] LABS: BILIRUBIN,TOTAL 0.3 MG/DL (0.2-1.0); CALCIUM LEVEL 8.7 MG/DL (8.5-10.1); CREATININE FOR GFR 1.54 MG/DL (0.55-1.30); GLOMERULAR FILTRATION RATE 39.9 (>60); POTASSIUM SERUM 3.2 MEQ/L (3.5-5.1); TOTAL PROTEIN 6.7 GM/DL (6.4-8.2)
[2020-05-30] MEDS: LEVALBUTEROL 1.25 MG/0.5 ML CONCENTRATE NEB INH SCH ×4 (03:39→15:19)
[2020-05-30] MEDS: methylPREDNISolone 125MG 2ML VIAL IV SCH (04:57)
[2020-05-30] MEDS: buPROPion **XL** TABLET 150MG (WELLBUTRIN XL) PO SCH (08:53)
[2020-05-30] MEDS: VITAMIN D 1,000 INTERNATIONAL UNITS TABLET PO SCH (08:53)
[2020-05-30] MEDS ORDERED: POTASSIUM CHLORIDE 10 MEQ SR TABLET PO SCH (09:00)
[2020-05-30] MEDS ORDERED: FUROSEMIDE 100MG/10ML VIAL (J1940) IV SCH (09:00)
--- NOTE | 2020-05-30 10:13 | IPN ---
PROGRESS NOTE DATE: 05/30/2020 SUBJECTIVE: Carmelina is seen in PCU. She was admitted with a pleural effusion. She reportedly has a history of this in past. She has not had a thoracentesis or definitive diagnosis yet. Per nursing report, she had an echocardiogram done that showed significant mitral regurgitation and possible vegetation; I do not have the formal report yet. She was felt to have congestive heart failure and was given diuretic yesterday, but only had about 600 mL net diuresis. She apparently was recently diagnosed with chronic kidney disease and has acute kidney injury superimposed on this. It looks like her baseline creatinine was around 1.0 when it was checked 02/2019 and then when she had lab work done on 04/2020 it is up to 1.2 and then on admission it was 2.0, though it is coming down this admission. PHYSICAL EXAMINATION: VITAL SIGNS: Afebrile. Vital signs stable; 113/63. GENERAL: She is alert, conversant, in no distress. HEENT: No JVD. LUNGS: Have rales at both bases. HEART: Regular rhythm, a loud 2/6 holosystolic murmur at the apex. ABDOMEN: Soft, nontender. No masses. EXTREMITIES: Trace peripheral edema. LABORATORY DATA: Sodium 140, potassium 3.2, BUN 29, creatinine 1.5, glucose 188. White count 28.9, hemoglobin 12.6, platelets 299,000. Blood cultures are pending. IMPRESSION: 1. Acute hypoxic respiratory failure: Presumed congestive heart failure. Per nursing staff, echocardiogram was abnormal, I will try to find an interpreting cobol mainframe developer as there is no report available to me at this time. 2. Leukocytosis: She is on intravenous steroid, I do not see a strong indication for this and we will discontinue this. 3. Abnormal echocardiogram: I will try to find an interpreting cobol mainframe developer. If there is a vegetation, this will need transesophageal echo. I have ordered repeat blood cultures. 4. Hypokalemia: Supplemental potassium has been given. 5. Acute kidney injury: Hopefully she will respond to diuresis. She was taking Valacyclovir and Meloxicam. Watch her renal function closely on the diuresis. Renal ultrasound was unremarkable. Consider nephrology consult. 6. Elevated D-Dimer: Patient is on a Heparin drip. provided, was to follow-up with a ventilator perfusion lung scan, so we will order this.
[2020-05-30] MEDS ORDERED: FURO80VL IV (14:04)
[2020-05-30] MEDS ORDERED: KLOR10TA76 PO (14:04)
--- NOTE | 2020-05-30 14:23 | ECHO ---
DATE OF PROCEDURE: 05/29/2020 Age: 39 Gender: Female REFERRING PROVIDER: Kurt Lacy MD. PATIENT LOCATION: Room 3220. REASON FOR STUDY: Shortness of breath. 2D MEASUREMENTS: IVS 1.2 cm LVPW 1.2 cm LV 4.7 cm. LA 3.9 cm Aorta 2.6 cm IVC 1.7 cm DOPPLER MEASUREMENT Peak velocity across the aortic valve 1.7 m/s Peak velocity across the LVOT 1.3 m/s Mitral E 2.2 Mitral A 2.2 with a ratio of 1.0 2D COMMENTS: 1. Normal left ventricular size, wall thickness, and normal global left ventricular systolic function with a hyperdynamic left ventricle. The estimated left ventricular systolic ejection fraction is 65 to 70%. 2. Subjectively, the left atrium appeared to be mildly enlarged. Normal right atrium and right ventricle. 3. The atrial septum appeared to be normal without evidence of defect or shunt. 4. Normal aortic root. 5. Mildly calcified aortic valve with normal leaflet excursion. There is buckling of the anterior mitral valve leaflet toward the left atrium and thickening of the mitral valve leaflets also noted. There was a 1.1 x 1.5 cm echogenic contracture on the mitral valve, possible the posterior mitral leaflets noted in limited views and may be related to vegetations. Normal tricuspid valve. The pulmonic valve and proximal pulmonary artery branches were not well visualized. 6. The inferior vena cava was normal in size, central venous pressure was most likely normal. Doppler detects mild aortic regurgitation and severe mitral regurgitation. Assessment of the left ventricular diastolic function may be normal. Abnormal relaxation pattern was noted across the mitral valve annulus consistent with features of grade 1 left ventricular diastolic dysfunction. IMPRESSION: 1. Normal global left ventricular systolic function with a hyperdynamic left ventricle. There were some features of grade 1 left ventricular diastolic dysfunction manifested by abnormal relaxation. 2. Aortic valve sclerosis with mild aortic regurgitation but no aortic stenosis. 3. Severe mitral regurgitation. Possible mitral valve prolapse. Probably vegetations on the mitral valve leaflets, and I would recommend a transesophageal echocardiogram. 4. Trace to small pericardial effusion noted. No evidence of cardiac tamponade. 5. Not mentioned above, bilateral pleural effusion noted. MTDD
--- NOTE | 2020-05-30 15:35 | DSES ---
DISCHARGE SUMMARY DATE OF ADMISSION: 05/29/2020 DATE OF DISCHARGE: 05/30/2020 PRINCIPAL DIAGNOSIS: Congestive heart failure with preserved ejection fraction secondary to severe mitral regurgitation. SECONDARY DIAGNOSES: 1. Possible endocarditis, mitral valve. 2. Chronic kidney disease versus acute kidney injury (baseline creatinine unknown). 3. History of recent group G strep pharyngitis. 4. History of anxiety/depression. HISTORY: Carmelina Dubois was admitted with shortness of breath. She was found to have pulmonary edema on CT scan of the chest. COVID screen was negative. She was admitted for further therapy. DETAILS OF HISTORY OF ADMISSION AND HOSPITAL COURSE: Patient was admitted to telemetry bed. She only recently established primary care and is seen at [facility]. She was told a week ago that she has decreased renal function with an increased creatinine, though she is not sure to what degree. Review of electronic record shows that she had a normal creatinine of 1.0 on March 02, mildly elevated creatinine of 1.23 on 05/01/2020, and then when she was admitted last night it was 2.0. She also recently saw her primary care provider for a group G streptococcus pharyngitis, treated with appropriate antibiotics. No mention was made of any heart murmur. During this admission she had an echocardiogram done. Report is not available, but I have discussed the results with Dr. Valencia, the performing electrical fitter, who indicated the patient had a preserved ejection fraction but severe mitral regurgitation and vegetation versus other abnormality on the mitral valve leading to mitral valve dysfunction. Patient has no history of fever, chills, night sweats. No history of intravenous drug abuse, recent skin infection, urinary infection, or other illness except for the group B streptococcus pharyngitis a week ago. She was given intravenous diuretic on admission. She diuresed modestly overnight. I increased the diuretic dose this morning. Discussed the echocardiogram with DR. Valencia. He recommended transesophageal echocardiogram. I spoke with Dr. Downs of cardiology service, who performs transesophageal echocardiogram at [facility]. He advised transfer to [facility] for the transesophageal echocardiogram, because if it did indeed show severe mitral regurgitation, she would probably need intervention on her mitral valve anyway. I spoke with Dr. Broussard, who graciously accept the patient in transfer to [facility]. I discussed the case at the patient's request with her mother, who works in the operating room here, and she is aware of the transfer. SIGNIFICANT LABORATORY DATA: Today's sodium is 142, potassium 3.2 (oral potassium given), BUN 26, creatinine 1.5, bicarbonate 23. Random blood sugar 188. C-reactive protein 1.02. Procalcitonin undetectable. Free T4 normal. TSH minimally elevated at 5.9 (it has been normal when checked May 04, and I suspect the abnormality is due to acute illness). BNP on admission was 1221. CBC on admission had a white count of 13,000, hemoglobin 12.5, platelets 287. She was given intravenous steroid for unknown indication, and the white count this morning is 28.9 on steroids. Hemoglobin is 12.6, platelets 291. Her COVID screen is negative. Urine toxicology screen is negative. CT scan of the chest showed pulmonary effusions, intersitial air and airspace disease, effect of pulmonary edema. Renal ultrasound was unremarkable. DISPOSITION: She is being transferred in stable condition to service of Dr. Broussard at [facility] in [place] for further evaluation of the suspected severe mitral regurgitation, possible endocarditis. Blood cultures are still pending. Two sets have been drawn from separate sites at separate times, and those are all pending. TRANSFER MEDICATIONS; - furosemide 80 mg twice a day - potassium chloride 40 mEq twice a day - Abilify 12 mg (10 plus 2 mg) every night - Wellbutrin XL 300 mg daily - vitamin D 1000 units daily - Xopenex by nebulizer as needed Activity as tolerated. She is nothing by mouth upon transfer. She did, however, have lunch today. At time of this dictation, there are no pending labs except for the blood cultures results. JIM
[2020-05-30] MEDS ORDERED: ENOXAPARIN 40MG/0.4ML SYRINGE (J1650 PER 10MG) SC SCH (21:00)
== END 2020-05-30 16:52 | disposition short-term general hospital (02) | DRG 291 ==
LOC: M ED 01:23 → M ED INP 04:46 → ENRESERV 04:57 → M PCU 06:41
PROVIDERS: ADMIT Internal Medicine; ATTEND Family Medicine
DX: I50.32 Chronic diastolic (congestive) heart failure (principal); J96.01 Acute respiratory failure with hypoxia; N17.9 Acute kidney failure, unspecified; I38 Endocarditis, valve unspecified; I34.0 Nonrheumatic mitral (valve) insufficiency; Z79.899 Other long term (current) drug therapy; F17.200 Nicotine dependence, unspecified, uncomplicated; J45.909 Unspecified asthma, uncomplicated; F41.9 Anxiety disorder, unspecified; F32.9 Major depressive disorder, single episode, unspecified; E87.6 Hypokalemia

== ENCOUNTER → 2020-08-14 | Outpatient (REF) | payer MEDICARE, OTHER ==
[~2020-08-14] MED LIST changes: +ALBU8.5H INH; +AMOX500C PO; +BUPR300T92 PO; +D31000TA2 PO; +FURO80VL IV; +KLOR10TA76 PO; +MELO15TA28 PO
== END ==
LOC: M SFHCWAGY 13:00
PROVIDERS: ATTEND Specialist
DX: Z12.4 Encounter for screening for malignant neoplasm of cervix (principal)
CPT/HCPCS: 87624; G0123

== ENCOUNTER → 2020-09-12 | Outpatient (CLI) | payer OTHER ==
--- NOTE | 2020-09-12 11:16 | REPMRS ---
Patient History The patient states she had a clinical breast exam in August 2020. Patient is nulliparous. No known family history of cancer. Patient states no breast complaints today. Patient has signed MRS History Sheet. Digital Woman Screen Mammo: September 12, 2020 - Exam #: [id number] Bilateral CC and MLO view(s) were taken. Technologist: Poornima Tubbs, Technologist Prior study comparison: April 20, 2014, left breast diagnostic unilateral mammo, performed at [facility]. FINDINGS: There are scattered fibroglandular densities. Screening. Digital screening (2D) mammography was performed bilaterally in the CC and MLO projections. Additionally, breast tomosynthesis (3D mammography) was performed bilaterally in the CC and MLO projections. Todays exam was compared to the prior exams. By history, the patient has no complaints of a palpable breast abnormality or other significant breast complaints. The breasts are unchanged in size and shape. There are no andres-soft tissue densities or spiculated masses. There is no internal architectural distortion. There are no suspicious andres-calcific clusters. Skin thickening or nipple retraction is not present. IMPRESSION: BI-RADS Category 2- Benign Findings. There is no evidence of malignant alteration of the breasts. Followup examination recommended in one year. This mammogram was read with the assistance of Grovo,an FDA approved computer aided detection system for mammography. The Volpara volumetric breast density category is B, there are scattered areas of fibroglandular density. Negative x-ray reports should not delay surgical consultation if a dominant or clinically suspicious mass is present. The lifetime Tyrer-Cuzick score is 14.7 % Not all breast cancers can be identified by mammography. Therefore, we recommend that you continue to perform regular breast self-examination and physical examination and then promptly contact your physician of any concerns or changes. Adenosis and dense breasts may obscure an underlying neoplasm. Assessment: BI-RADS/ACR category 2 mammogram. Benign Findings. Recommendation Routine screening mammogram of both breasts in 1 year. Electronically Signed By: Trae Mann DO 09/12/20 [id number]
== END ==
LOC: M WHC 10:27
PROVIDERS: ATTEND Physician Assistant
DX: Z12.31 Encounter for screening mammogram for malignant neoplasm of breast (principal)

== ENCOUNTER 2020-10-22 15:13 | Emergency (ER) | payer MEDICAID, MEDICARE, OTHER ==
[~2020-10-22] VITALS: Ht 160 cm; Wt 72.7 kg
[~2020-10-22 15:13] MED LIST changes: +ARIP10TA32 PO; -ARIP1TAB PO
[2020-10-22 15:50] LABS: BASO # 0.1 10^3/uL (0.0-0.2); BASO % 0.6 % (0.0-1.0); EOS # 0.3 10^3/uL (0.0-0.5); EOS % 2.2 % (0.0-3.0); HEMATOCRIT 44.5 % (36.0-47.0); HEMOGLOBIN 14.7 g/dl (12.0-15.5); LYMPH # 3.1 10^3/uL (1.5-5.0); LYMPH % 26.1 % (24.0-44.0); MEAN CORPUSCULAR HEMOGLOBIN 29.8 pg (27.0-33.0); MEAN CORPUSCULAR VOLUME 90.1 fl (80.0-96.0); MONO # 0.7 10^3/uL (0.0-0.8); MONO % 5.9 % (2.0-8.0); NEUTROPHILS # 7.6 10^3/uL (1.5-8.5); NEUTROPHILS % 64.9 % (36.0-66.0); PLATELET COUNT, AUTOMATED 256 10^3/uL (150-450); RED BLOOD COUNT 4.94 10^6/uL (4.00-5.40); WHITE BLOOD COUNT 11.7 10^3/uL (4.0-10.0)
--- NOTE | 2020-10-22 15:50 | REP ---
INDICATION: CHEST PAIN COMPARISON: 05/29/2020 TECHNIQUE: Portable AP view of the chest FINDINGS: The mediastinum and cardiac silhouette are stable and within normal limits for portable technique. Aortic valve repair now suggested. The lung brush are clear without acute consolidation, effusion, or pneumothorax. Skeletal structures are intact. IMPRESSION: No acute cardiopulmonary process appreciated. <Electronically signed by Fady Huggins > 10/22/20 [id number]
[2020-10-22 16:24] LABS: CALCIUM LEVEL 8.7 MG/DL (8.5-10.1); CREATININE FOR GFR 1.41 MG/DL (0.55-1.30); FREE T4 0.8 NG/DL (0.76-1.46); MAGNESIUM LEVEL 2.3 MG/DL (1.8-2.4); POTASSIUM SERUM 4.2 MEQ/L (3.5-5.1); THYROID STIMULATING HORMONE 1.77 uIU/ML (0.358-3.740)
[2020-10-22 17:27] LABS: AMPHETAMINES LEVEL URINE NEGATIVE (NEGATIVE); BARBITURATES URINE NEGATIVE (NEGATIVE); BENZODIAZEPINES URINE NEGATIVE (NEGATIVE); CANNABINOIDS URINE NEGATIVE (NEGATIVE); COCAINE METABOLITE URINE NEGATIVE (NEGATIVE); METHADONE URINE NEGATIVE (NEGATIVE); OPIATES URINE NEGATIVE (NEGATIVE); PHENCYCLIDINE URINE NEGATIVE (NEGATIVE)
[2020-10-22 17:45] VITALS: BP 111/73
--- NOTE | 2020-10-23 21:17 | ECGEPIP ---
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
== END 2020-10-22 17:51 | disposition home or self-care (01) ==
LOC: M ED 15:13
DX: R00.2 Palpitations (principal); R94.31 Abnormal electrocardiogram [ECG] [EKG]; J45.909 Unspecified asthma, uncomplicated; F41.9 Anxiety disorder, unspecified; F29 Unspecified psychosis not due to a substance or known physiological condition; F17.200 Nicotine dependence, unspecified, uncomplicated; Z86.59 Personal history of other mental and behavioral disorders; Z79.51 Long term (current) use of inhaled steroids; Z79.899 Other long term (current) drug therapy

== ENCOUNTER → 2020-12-22 | Outpatient (CLI) | payer MEDICARE, MEDICAID ==
[~2020-12-22] MED LIST changes: -KLOR10TA76 PO; +POTA-136 PO
[2020-12-22 12:41] LABS: HEMOGLOBIN 14.7 g/dl (12.0-15.5); MEAN CORPUSCULAR HEMOGLOBIN 30.6 pg (27.0-33.0); MEAN CORPUSCULAR HGB CONC 33.4 g/dl (32.0-36.5); MEAN CORPUSCULAR VOLUME 91.5 fl (80.0-96.0); PLATELET COUNT, AUTOMATED 256 10^3/uL (150-450); RED BLOOD COUNT 4.81 10^6/uL (4.00-5.40)
[2020-12-23 15:09] LABS: Lyme Disease IgG/IgM Antibodie <0.91 ISR (0.00-0.90); Lyme Disease IgM Ab Quantitati <0.80 index (0.00-0.79)
== END ==
LOC: M WUC 11:28
PROVIDERS: ATTEND Physician Assistant Medical
DX: M79.10 Myalgia, unspecified site (principal); Z79.899 Other long term (current) drug therapy; F28 Other psychotic disorder not due to a substance or known physiological condition; F14.21 Cocaine dependence, in remission; F12.21 Cannabis dependence, in remission

== ENCOUNTER 2021-05-03 15:26 | Emergency (ER) | payer MEDICARE, MEDICAID ==
[~2021-05-03] VITALS: Ht 162.6 cm; Wt 87.3 kg
[2021-05-03] MEDS ORDERED: METO1TAB87 (15:40)
[2021-05-03] MEDS ORDERED: ASPI81CH33 (15:40)
[2021-05-03] MEDS ORDERED: TOPI25TA10 (15:40)
[2021-05-03 21:12] LABS: BASO # 0.1 10^3/uL (0.0-0.2); BASO % 0.4 % (0.0-1.0); EOS # 0.2 10^3/uL (0.0-0.5); EOS % 0.9 % (0.0-3.0); HEMATOCRIT 42.9 % (36.0-47.0); HEMOGLOBIN 14.5 g/dl (12.0-15.5); LYMPH % 17.5 % (24.0-44.0); MEAN CORPUSCULAR HEMOGLOBIN 31.2 pg (27.0-33.0); MEAN CORPUSCULAR HGB CONC 33.8 g/dl (32.0-36.5); MEAN CORPUSCULAR VOLUME 92.3 fl (80.0-96.0); MONO % 5.7 % (2.0-8.0); NEUTROPHILS # 12.9 10^3/uL (1.5-8.5); NEUTROPHILS % 75.1 % (36.0-66.0); PLATELET COUNT, AUTOMATED 316 10^3/uL (150-450); RED BLOOD COUNT 4.65 10^6/uL (4.00-5.40); WHITE BLOOD COUNT 17.2 10^3/uL (4.0-10.0)
[2021-05-03] MEDS ORDERED: ISOVUE-370 76% 100ML VIAL As Ordered ONE (21:19)
[2021-05-03 21:23] LABS: INR 1.03; PROTHROMBIN TIME 13.9 SECONDS (12.7-14.5)
[2021-05-03 21:38] LABS: CK-MB VALUE MASS < 1.0 NG/ML (<3.6); CPK CREATINE PHOSPHOKINASE 54 U/L (26-192); MB/CK RELATIVE INDEX 1.85 (< OR =4)
[2021-05-03 21:51] LABS: ALBUMIN 3.3 GM/DL (3.2-5.2); ALT/SGPT 21 U/L (12-78); BILIRUBIN,DIRECT 0.1 MG/DL (0.0-0.2); BILIRUBIN,TOTAL 0.3 MG/DL (0.2-1.0); BLOOD UREA NITROGEN 17 MG/DL (7-18); CALCIUM LEVEL 8.6 MG/DL (8.5-10.1); CARBON DIOXIDE LEVEL 25 MEQ/L (21-32); CHLORIDE LEVEL 110 MEQ/L (98-107); CREATININE FOR GFR 0.92 MG/DL (0.55-1.30); GLOMERULAR FILTRATION RATE > 60.0 (>58); GLUCOSE, FASTING 89 MG/DL (70-100); HCG, SERUM QUANTITATIVE < 1.0 MIU/ML; LIPASE 109 U/L (73-393); POTASSIUM SERUM 4.2 MEQ/L (3.5-5.1); SODIUM LEVEL 141 MEQ/L (136-145); TOTAL PROTEIN 7.1 GM/DL (6.4-8.2)
[2021-05-03 22:00] VITALS: BP 139/87
[2021-05-03] MEDS ORDERED: KETOROLAC 30 MG/ML 1ML VIAL IV ONE (22:30)
[2021-05-03] MEDS ORDERED: KETO10TAB PO (22:49)
== END 2021-05-03 23:04 | disposition home or self-care (01) ==
LOC: M ED 15:26
DX: R07.9 Chest pain, unspecified (principal); M94.0 Chondrocostal junction syndrome [Tietze]; J91.8 Pleural effusion in other conditions classified elsewhere; Z87.891 Personal history of nicotine dependence; Z87.42 Personal history of other diseases of the female genital tract
CPT/HCPCS: 71045; 71275; 80047; 80048; 80076; 82550; 82553; 83690; 84484; 84702; 85025; 85610; 93005; 93041; 94760; 96374; 99285; J1885; Q9967

== ENCOUNTER → 2021-08-21 | Outpatient (REF) | payer MEDICARE, MEDICAID ==
[~2021-08-21] MED LIST changes: +ASPI81CH33; -BUPR200T2 PO; +BUPR200T41 PO; -D31000TA2 PO; -FEXO60CA PO; +FEXO60TA99 PO; +KETO10TAB PO; +METO1TAB87; +TOPI25TA10; +VITA100093 PO
== END ==
LOC: M SFHCWAGY 13:07
PROVIDERS: ATTEND Specialist
DX: Z12.4 Encounter for screening for malignant neoplasm of cervix (principal)
CPT/HCPCS: 87624; G0123

== ENCOUNTER → 2021-10-01 | Outpatient (CLI) | payer MEDICARE, MEDICAID ==
[~2021-10-01] MED LIST changes: +ALBU2.5V10 INH; -ALBU83IN INH
== END ==
LOC: M WHC 08:05
PROVIDERS: ATTEND Specialist
DX: Z12.31 Encounter for screening mammogram for malignant neoplasm of breast (principal)

== ENCOUNTER → 2022-05-10 | Outpatient (REF) | payer MEDICARE, MEDICAID | LOC: M SFHCDERM 16:56 | PROVIDERS: ATTEND Nurse Practitioner Family | DX: D49.2 Neoplasm of unspecified behavior of bone, soft tissue, and skin (principal) ==

== ENCOUNTER → 2022-06-19 | Outpatient (REF) | payer MEDICARE, MEDICAID ==
[2022-06-19 16:47] LABS: BASO # 0.1 10^3/uL (0.0-0.2); BASO % 0.5 % (0.0-1.0); EOS # 0.2 10^3/uL (0.0-0.5); EOS % 2.1 % (0.0-3.0); HEMATOCRIT 46.7 % (36.0-47.0); HEMOGLOBIN 15.7 g/dl (12.0-15.5); LYMPH # 2.9 10^3/uL (1.5-5.0); LYMPH % 26.6 % (24.0-44.0); MEAN CORPUSCULAR HEMOGLOBIN 30.6 pg (27.0-33.0); MEAN CORPUSCULAR HGB CONC 33.6 g/dl (32.0-36.5); MONO # 0.6 10^3/uL (0.0-0.8); MONO % 5.6 % (2.0-8.0); NEUTROPHILS # 7.2 10^3/uL (1.5-8.5); NEUTROPHILS % 64.9 % (36.0-66.0); PLATELET COUNT, AUTOMATED 290 10^3/uL (150-450); RED BLOOD COUNT 5.13 10^6/uL (4.00-5.40)
[2022-06-19 17:32] LABS: HEMOGLOBIN A1c 5.5 % (4.0-6.0)
== END ==
LOC: M LAB REF 16:24
PROVIDERS: ATTEND Pediatrics
DX: Z76.89 Persons encountering health services in other specified circumstances (principal)

== ENCOUNTER → 2022-06-21 | Outpatient (CLI) | payer MEDICARE, MEDICAID ==
[2022-06-21 20:25] LABS: HIV 1&2 SCREEN CENTAUR NEGATIVE (NEGATIVE)
[2022-06-21 21:19] LABS: GC DNA AMPLIFICATION NEGATIVE (NEGATIVE)
== END ==
LOC: M WUC 15:14
DX: R30.0 Dysuria (principal)

== ENCOUNTER → 2022-08-26 | Outpatient (REF) | payer MEDICARE, MEDICAID ==
[~2022-08-26] MED LIST changes: +CIPR0.3S37 OD; -CIPR0.3S6 OD
== END ==
LOC: M SFHCWAGY 18:20
PROVIDERS: ATTEND Specialist
DX: Z12.4 Encounter for screening for malignant neoplasm of cervix (principal); R87.610 Atypical squamous cells of undetermined significance on cytologic smear of cervix (ASC-US)
CPT/HCPCS: 87624; G0123

== ENCOUNTER 2022-09-19 19:06 | Emergency (ER) | payer MEDICARE, MEDICAID ==
[~2022-09-19] VITALS: Ht 160 cm; Wt 79.7 kg
[2022-09-19 19:07] VITALS: BP 137/87; TEMP 99.1; O2SAT 98
[2022-09-20] MEDS ORDERED: IBUPROFEN 600MG TAB PO ONE
[2022-09-20] MEDS ORDERED: predniSONE 20 MG TAB PO ONE
[2022-09-20] MEDS ORDERED: methocarbamoL 500 MG TAB PO ONE
[2022-09-20 00:59] LABS: HCG, SERUM QUALITATIVE NEGATIVE (NEGATIVE)
[2022-09-20] MEDS ORDERED: IBUP-1022 PO (01:17)
[2022-09-20] MEDS ORDERED: PRED20TA PO ×2 (01:17→01:19)
[2022-09-20] MEDS ORDERED: METH-1164 PO (01:17)
== END 2022-09-20 02:41 | disposition home or self-care (01) ==
LOC: M ED 19:06
DX: M54.50 Low back pain, unspecified (principal); Z79.52 Long term (current) use of systemic steroids; Z79.899 Other long term (current) drug therapy
CPT/HCPCS: 72110; 84703; 99282; G0463; J7512

== ENCOUNTER → 2022-10-03 | Outpatient (CLI) | payer MEDICARE, MEDICAID ==
[~2022-10-03] MED LIST changes: +IBUP-1022 PO; +METH-1164 PO; +PRED20TA PO
== END ==
LOC: M WHC 07:13
PROVIDERS: ATTEND Specialist
DX: Z12.31 Encounter for screening mammogram for malignant neoplasm of breast (principal)

== ENCOUNTER → 2022-11-20 | Outpatient (CLI) | payer MEDICARE, MEDICAID | LOC: M WUC 09:42 | PROVIDERS: ATTEND Pediatrics | DX: R06.6 Hiccough (principal) ==

== ENCOUNTER 2023-02-19 13:09 | Emergency (ER) | payer MEDICARE, MEDICAID ==
[~2023-02-19] VITALS: Ht 160 cm; Wt 79.5 kg
[2023-02-19] MEDS ORDERED: TRAZ-252 (13:22)
[2023-02-19] MEDS ORDERED: FLUT12AE6 (13:22)
[2023-02-19 14:51] LABS: BASO # 0.1 10^3/uL (0.0-0.2); BASO % 0.7 % (0.0-1.0); EOS # 0.2 10^3/uL (0.0-0.5); EOS % 2.1 % (0.0-3.0); HEMATOCRIT 45.6 % (36.0-47.0); HEMOGLOBIN 15.1 g/dl (12.0-15.5); LYMPH # 1.5 10^3/uL (1.5-5.0); MEAN CORPUSCULAR HEMOGLOBIN 30.9 pg (27.0-33.0); MEAN CORPUSCULAR HGB CONC 33.1 g/dl (32.0-36.5); MEAN CORPUSCULAR VOLUME 93.3 fl (80.0-96.0); MONO # 0.8 10^3/uL (0.0-0.8); MONO % 9.6 % (2.0-8.0); NEUTROPHILS # 5.5 10^3/uL (1.5-8.5); NEUTROPHILS % 68.2 % (36.0-66.0); PLATELET COUNT, AUTOMATED 235 10^3/uL (150-450); RED BLOOD COUNT 4.89 10^6/uL (4.00-5.40); WHITE BLOOD COUNT 8.1 10^3/uL (4.0-10.0)
[2023-02-19 14:58] LABS: INR 1.06; PROTHROMBIN TIME 13.5 SECONDS (12.5-14.5)
[2023-02-19 14:59] LABS: PARTIAL THROMBOPLASTIN TIME 28.2 SECONDS (24.8-34.2)
[2023-02-19 15:10] LABS: D-DIMER QUANT 0.36 ug/mL (<0.5)
[2023-02-19 15:14] LABS: BLOOD UREA NITROGEN 14 MG/DL (9-23); CARBON DIOXIDE LEVEL 26 MMOL/L (20-31); CHLORIDE LEVEL 109 MMOL/L (98-107); GLOMERULAR FILTRATION RATE > 60.0 (>58); GLUCOSE, FASTING 103 MG/DL (60-100); SODIUM LEVEL 142 MMOL/L (136-145)
[2023-02-19] MEDS ORDERED: ISOVUE-370 76% 100ML VIAL As Ordered ONE (16:16)
[2023-02-19] MEDS ORDERED: BENZ200C70 PO (17:41)
[2023-02-19 18:04] VITALS: BP 118/74; TEMP 98; O2SAT 98
== END 2023-02-19 18:10 | disposition home or self-care (01) ==
LOC: M ED 13:09
DX: J20.9 Acute bronchitis, unspecified (principal); R04.2 Hemoptysis; J45.909 Unspecified asthma, uncomplicated; F41.9 Anxiety disorder, unspecified; F32.A Depression, unspecified; F17.200 Nicotine dependence, unspecified, uncomplicated; F12.10 Cannabis abuse, uncomplicated; Z91.048 Other nonmedicinal substance allergy status; Z79.52 Long term (current) use of systemic steroids; Z79.82 Long term (current) use of aspirin; Z79.899 Other long term (current) drug therapy
CPT/HCPCS: 71046; 71275; 80048; 85025; 85379; 85610; 85730; 87486; 87581; 87633; 87798; 93005; 93041; 94760; 99284; Q9967

== ENCOUNTER → 2023-07-16 | Outpatient (CLI) | payer MEDICARE, MEDICAID ==
[~2023-07-16] MED LIST changes: +BENZ200C70 PO; +FLUT12AE6; +RISP-105 PO; -RISP-8 PO
[2023-07-16 12:14] LABS: APPEARANCE, URINE TURBID (CLEAR); BACTERIA, URINE AUTO NEGATIVE (NEGATIVE); BILIRUBIN, URINE AUTO NEGATIVE (NEGATIVE); BLOOD, URINE BLOOD 1+ (NEGATIVE); COLOR, URINE AMBER (YELLOW); GLUCOSE, URINE (UA) AUTO NEGATIVE (NEGATIVE); KETONE, URINE AUTO NEGATIVE (NEGATIVE); LEUKOCYTE ESTERASE, URINE AUTO NEGATIVE (NEGATIVE); MUCUS, URINE SMALL (NEGATIVE); NITRITE, URINE AUTO NEGATIVE (NEGATIVE); PROTEIN, URINE AUTO 1+ mg/dL (NEGATIVE); RBC, URINE AUTO 3 /HPF (0-3); SPECIFIC GRAVITY URINE AUTO 1.026 (1.002-1.035); SQUAMOUS EPITHELIAL CELL UR AU 0 /HPF (0-6); UROBILINOGEN, URINE AUTO 0.2 mg/dL (0.0-2.0); WBC, URINE AUTO 0 /HPF (0-3)
== END ==
LOC: M WUC 09:52
PROVIDERS: ATTEND Pediatrics
DX: J45.41 Moderate persistent asthma with (acute) exacerbation (principal); R10.9 Unspecified abdominal pain

== ENCOUNTER → 2023-07-16 | Outpatient (REF) | payer MEDICARE, MEDICAID ==
[2023-07-16 17:59] LABS: BASO # 0.1 10^3/uL (0.0-0.2); BASO % 0.5 % (0.0-1.0); EOS # 0.2 10^3/uL (0.0-0.5); EOS % 2.5 % (0.0-3.0); HEMATOCRIT 46.4 % (36.0-47.0); HEMOGLOBIN 15.3 g/dl (12.0-15.5); LYMPH # 1.7 10^3/uL (1.5-5.0); LYMPH % 18.3 % (24.0-44.0); MEAN CORPUSCULAR HEMOGLOBIN 30.9 pg (27.0-33.0); MEAN CORPUSCULAR VOLUME 93.7 fl (80.0-96.0); MONO # 0.8 10^3/uL (0.0-0.8); MONO % 8.7 % (2.0-8.0); NEUTROPHILS # 6.4 10^3/uL (1.5-8.5); NEUTROPHILS % 69.7 % (36.0-66.0); PLATELET COUNT, AUTOMATED 239 10^3/uL (150-450); RED BLOOD COUNT 4.95 10^6/uL (4.00-5.40); WHITE BLOOD COUNT 9.2 10^3/uL (4.0-10.0)
[2023-07-16 18:20] LABS: ALBUMIN 3.5 G/DL (3.2-5.2); ALKALINE PHOSPHATASE 76 U/L (46-116); ALT/SGPT 31 U/L (7.0-40); AST/SGOT 19 U/L (<34); BILIRUBIN,TOTAL 0.3 MG/DL (0.3-1.2); BLOOD UREA NITROGEN 20 MG/DL (9-23); CARBON DIOXIDE LEVEL 26 MMOL/L (20-31); CHLORIDE LEVEL 110 MMOL/L (98-107); CREATININE FOR GFR 1.06 MG/DL (0.55-1.30); GLOMERULAR FILTRATION RATE > 60.0 (>58); GLUCOSE, FASTING 54 MG/DL (60-100); POTASSIUM SERUM 4.7 MMOL/L (3.5-5.1); SODIUM LEVEL 141 MMOL/L (136-145)
== END ==
LOC: M LAB REF 16:27
PROVIDERS: ATTEND Pediatrics
DX: R10.9 Unspecified abdominal pain (principal); J45.41 Moderate persistent asthma with (acute) exacerbation

== ENCOUNTER 2023-07-22 14:03 | Emergency (ER) | payer MEDICAID, MEDICARE ==
[~2023-07-22] VITALS: Ht 160 cm; Wt 71.0 kg
[~2023-07-22 14:03] MED LIST changes: -ASPI81CH33; +ASPI81CH33 PO; -TOPI25TA10
[2023-07-22 14:55] LABS: HEMATOCRIT 46.2 % (36.0-47.0); HEMOGLOBIN 15.4 g/dl (12.0-15.5); MEAN CORPUSCULAR HEMOGLOBIN 30.8 pg (27.0-33.0); MEAN CORPUSCULAR HGB CONC 33.3 g/dl (32.0-36.5); MEAN CORPUSCULAR VOLUME 92.4 fl (80.0-96.0); PLATELET COUNT, AUTOMATED 259 10^3/uL (150-450); WHITE BLOOD COUNT 12.6 10^3/uL (4.0-10.0)
[2023-07-22 15:07] LABS: AMPHETAMINES LEVEL URINE NEGATIVE (NEGATIVE); BARBITURATES URINE NEGATIVE (NEGATIVE); BENZODIAZEPINES URINE NEGATIVE (NEGATIVE); COCAINE METABOLITE URINE NEGATIVE (NEGATIVE)
[2023-07-22 15:08] LABS: METHADONE URINE NEGATIVE (NEGATIVE); OPIATES URINE NEGATIVE (NEGATIVE); PHENCYCLIDINE URINE NEGATIVE (NEGATIVE)
[2023-07-22 15:09] LABS: CANNABINOIDS URINE POSITIVE (NEGATIVE)
[2023-07-22 15:19] LABS: ETHYL ALCOHOL (ETHANOL) 0.004 % (0.000-0.010)
[2023-07-22 15:21] LABS: ALKALINE PHOSPHATASE 85 U/L (46-116); ALT/SGPT 23 U/L (7.0-40); AST/SGOT 21 U/L (<34); BILIRUBIN,DIRECT 0.1 MG/DL (<0.4); BILIRUBIN,TOTAL 0.3 MG/DL (0.3-1.2); BLOOD UREA NITROGEN 20 MG/DL (9-23); CALCIUM LEVEL 9.4 MG/DL (8.5-10.1); CARBON DIOXIDE LEVEL 25 MMOL/L (20-31); CHLORIDE LEVEL 107 MMOL/L (98-107); CREATININE FOR GFR 1.54 MG/DL (0.55-1.30); GLOMERULAR FILTRATION RATE 39.1 (>58); GLUCOSE, FASTING 103 MG/DL (60-100); POTASSIUM SERUM 3.9 MMOL/L (3.5-5.1); SALICYLATE LEVEL < 3.0 MG/DL (<30); SODIUM LEVEL 141 MMOL/L (136-145); TOTAL PROTEIN 7.3 G/DL (5.7-8.2)
[2023-07-22 15:30] LABS: THYROID STIMULATING HORMONE 3.013 uIU/ML (0.55-4.78)
[2023-07-22 16:15] LABS: HCG, SERUM QUALITATIVE NEGATIVE (NEGATIVE)
[2023-07-22] MEDS ORDERED: CALC500C16 PO (17:30)
[2023-07-22] MEDS ORDERED: VITAD400CA PO (17:30)
[2023-07-22] MEDS ORDERED: FLUT12AE2 INH (17:30)
[2023-07-22] MEDS ORDERED: MULT1TAB50 PO (17:30)
[2023-07-22] MEDS ORDERED: TOPI-21 PO (17:30)
[2023-07-22] MEDS ORDERED: HOME MED LIST COMPLETE! XX SCH (17:35)
[2023-07-22 18:16] VITALS: BP 127/85; TEMP 97.6; O2SAT 98
== END 2023-07-22 18:20 | disposition home or self-care (01) ==
LOC: M ED 14:03
DX: F43.0 Acute stress reaction (principal); F32.A Depression, unspecified; F41.9 Anxiety disorder, unspecified; J45.909 Unspecified asthma, uncomplicated; Z91.048 Other nonmedicinal substance allergy status; Z79.51 Long term (current) use of inhaled steroids; Z79.52 Long term (current) use of systemic steroids; Z79.82 Long term (current) use of aspirin; Z79.899 Other long term (current) drug therapy

== ENCOUNTER → 2024-01-19 | Outpatient (CLI) | payer MEDICARE ==
[~2024-01-19] MED LIST changes: -ARIP10TA32 PO; +ARIP10TA63 PO; +BUPR-597 PO; -BUPR300T92 PO; +CALC500C16 PO; +FLUT12AE2 INH; +MULT1TAB50 PO; +TOPI-21 PO; +VITAD400CA PO
[2024-01-19 18:55] LABS: FOLLICLE STIMULATING HORMONE 43.8 mIU/ML; LUTEINIZING HORMONE 69.3 mIU/ML
[2024-01-19 18:57] LABS: ESTRADIOL 154.3 PG/ML
== END ==
LOC: M PLALAB 14:32
PROVIDERS: ATTEND Specialist
DX: Z12.4 Encounter for screening for malignant neoplasm of cervix (principal)

== ENCOUNTER → 2024-02-05 | Outpatient (CLI) | payer MEDICARE, MEDICAID ==
[2024-02-05 17:49] LABS: FOLLICLE STIMULATING HORMONE 17.5 mIU/ML
[2024-02-05 17:50] LABS: LUTEINIZING HORMONE 9.7 mIU/ML
== END ==
LOC: M PLALAB 14:11
PROVIDERS: ATTEND Specialist
DX: N92.6 Irregular menstruation, unspecified (principal)

== ENCOUNTER → 2024-02-12 | Outpatient (CLI) | payer MEDICARE, MEDICAID | LOC: M WHC 07:25 | PROVIDERS: ATTEND Specialist | DX: Z12.31 Encounter for screening mammogram for malignant neoplasm of breast (principal); R92.323 Mammographic fibroglandular density, bilateral breasts ==

== ENCOUNTER → 2024-03-08 | Outpatient (CLI) | payer MEDICARE, MEDICAID ==
[2024-03-08 15:09] LABS: HEMOGLOBIN 16.2 g/dl (12.0-15.5); MEAN CORPUSCULAR HEMOGLOBIN 31.1 pg (27.0-33.0); MEAN CORPUSCULAR HGB CONC 33.8 g/dl (32.0-36.5); MEAN CORPUSCULAR VOLUME 92.1 fl (80.0-96.0); PLATELET COUNT, AUTOMATED 244 10^3/uL (150-450); RED BLOOD COUNT 5.21 10^6/uL (4.00-5.40); WHITE BLOOD COUNT 8.4 10^3/uL (4.0-10.0)
[2024-03-08 15:40] LABS: CALCIUM LEVEL 9.4 MG/DL (8.5-10.1); CREATININE FOR GFR 1.26 MG/DL (0.55-1.30); GLOMERULAR FILTRATION RATE 49.3 (>58); POTASSIUM SERUM 4.8 MMOL/L (3.5-5.1)
== END ==
LOC: M PLALAB 12:12
PROVIDERS: ATTEND Internal Medicine Cardiovascular Disease
DX: I05.8 Other rheumatic mitral valve diseases (principal)

== ENCOUNTER → 2024-03-17 | Outpatient (REF) | payer MEDICARE, MEDICAID | LOC: M SFHCWAGY 17:07 | PROVIDERS: ATTEND Specialist | DX: R30.0 Dysuria (principal) ==

== ENCOUNTER → 2024-03-26 | Outpatient (CLI) | payer MEDICARE, MEDICAID ==
[2024-03-26 19:53] LABS: CREATININE FOR GFR 1.13 MG/DL (0.55-1.30); GLOMERULAR FILTRATION RATE 55.9 (>58)
== END ==
LOC: M PLALAB 15:12
PROVIDERS: ATTEND Internal Medicine Cardiovascular Disease
DX: N17.9 Acute kidney failure, unspecified (principal)

== ENCOUNTER → 2024-11-24 | Outpatient (REF) | payer MEDICARE, MEDICAID ==
[~2024-11-24] MED LIST changes: -BUPR-597 PO; +BUPR-766 PO; +TOPI-256 PO; -TOPI25TA10 PO
[2024-11-24 16:59] LABS: ALT/SGPT 46.0 U/L (7.0-40); AST/SGOT 29.0 U/L (<34); CALCIUM LEVEL 9.3 MG/DL (8.5-10.1); CARBON DIOXIDE LEVEL 22.0 MMOL/L (20-31); CHLORIDE LEVEL 109.0 MMOL/L (98-107); CHOLESTEROL LEVEL 172.0 MG/DL (<200); CHOLESTEROL RISK RATIO 3.07 (<5); CREATININE FOR GFR 1.0 MG/DL (0.55-1.30); GLOMERULAR FILTRATION RATE 71.2 (>58); LDL CHOLESTEROL 97.1 MG/DL (<100); NON-HDL-C 116.1 MG/DL; POTASSIUM SERUM 4.6 MMOL/L (3.5-5.1); SODIUM LEVEL 141.0 MMOL/L (136-145); TRIGLYCERIDES LEVEL 95.0 MG/DL (<150)
[2024-11-24 17:01] LABS: TOTAL 25(OH) VITAMIN D 41.6 NG/ML (20.0-100.0)
[2024-11-24 17:08] LABS: BASO # 0.1 10^3/uL (0.0-0.2); BASO % 0.8 % (0.0-1.0); EOS # 0.3 10^3/uL (0.0-0.5); EOS % 3.0 % (0.0-3.0); LYMPH # 1.7 10^3/uL (1.5-5.0); LYMPH % 16.3 % (24.0-44.0); MONO # 0.7 10^3/uL (0.0-0.8); MONO % 6.8 % (2.0-8.0); NEUTROPHILS # 7.7 10^3/uL (1.5-8.5); NEUTROPHILS % 72.7 % (36.0-66.0); PLATELET COUNT, AUTOMATED 273 10^3/uL (150-450)
== END ==
LOC: M LAB REF 16:29
PROVIDERS: ATTEND Pediatrics
DX: E66.811 Obesity, class 1 (principal); Z86.31 Personal history of diabetic foot ulcer; I05.0 Rheumatic mitral stenosis; E55.9 Vitamin D deficiency, unspecified; Z79.899 Other long term (current) drug therapy

== ENCOUNTER 2025-01-30 20:19 | Emergency (ER) | payer MEDICARE, MEDICAID ==
[~2025-01-30] VITALS: Ht 160 cm; Wt 72.1 kg
[~2025-01-30 20:19] MED LIST changes: -IBUP-1022 PO; +IBUP600T42 PO
[2025-01-30 20:52] LABS: BASO # 0.1 10^3/uL (0.0-0.2); BASO % 0.6 % (0.0-1.0); EOS # 0.3 10^3/uL (0.0-0.5); EOS % 2.6 % (0.0-3.0); LYMPH # 2.3 10^3/uL (1.5-5.0); LYMPH % 24.6 % (24.0-44.0); MONO # 0.6 10^3/uL (0.0-0.8); MONO % 6.7 % (2.0-8.0); NEUTROPHILS # 6.2 10^3/uL (1.5-8.5); NEUTROPHILS % 65.3 % (36.0-66.0); PLATELET COUNT, AUTOMATED 205 10^3/uL (150-450)
[2025-01-30 21:14] LABS: CK-MB VALUE MASS 1.0 NG/ML (<3.6)
[2025-01-30 21:16] LABS: ALT/SGPT 26.0 U/L (7.0-40); AST/SGOT 19.0 U/L (<34); CALCIUM LEVEL 9.8 MG/DL (8.5-10.1); CARBON DIOXIDE LEVEL 22.0 MMOL/L (20-31); CHLORIDE LEVEL 111.0 MMOL/L (98-107); CPK CREATINE PHOSPHOKINASE 56.0 U/L (34-145); CREATININE FOR GFR 1.26 MG/DL (0.55-1.30); GLOMERULAR FILTRATION RATE 54.0 (>58); MB/CK RELATIVE INDEX 1.78 (< OR =4); POTASSIUM SERUM 4.1 MMOL/L (3.5-5.1); SODIUM LEVEL 145.0 MMOL/L (136-145)
[2025-01-30 22:25] LABS: INR 1.04
[2025-01-30 22:43] LABS: CALCIUM LEVEL 9.3 MG/DL (8.5-10.1); CARBON DIOXIDE LEVEL 23 MMOL/L (20-31); CHLORIDE LEVEL 109 MMOL/L (98-107); CK-MB VALUE MASS < 1.0 NG/ML (<3.6); CREATININE FOR GFR 1.18 MG/DL (0.55-1.30); GLOMERULAR FILTRATION RATE 58.4 (>58); POTASSIUM SERUM 3.8 MMOL/L (3.5-5.1); SODIUM LEVEL 144 MMOL/L (136-145)
[2025-01-30 22:46] LABS: CPK CREATINE PHOSPHOKINASE 58 U/L (34-145)
[2025-01-31] MEDS: KETOROLAC 30 MG/ML 1 ML VIAL IV ONE (01:20)
[2025-01-31] MEDS ORDERED: ISOVUE-370 76% 100 ML VIAL As Ordered ONE (01:23)
[2025-01-31 02:00] VITALS: BP 151/75; TEMP 98.3; O2SAT 98
== END 2025-01-31 02:28 | disposition home or self-care (01) ==
LOC: M ED 20:19
DX: R07.9 Chest pain, unspecified (principal); I45.10 Unspecified right bundle-branch block; E55.9 Vitamin D deficiency, unspecified; G43.909 Migraine, unspecified, not intractable, without status migrainosus; F32.A Depression, unspecified; F41.9 Anxiety disorder, unspecified; Z91.048 Other nonmedicinal substance allergy status; Z79.52 Long term (current) use of systemic steroids; Z79.82 Long term (current) use of aspirin; Z79.899 Other long term (current) drug therapy
CPT/HCPCS: 71045; 71275; 80048; 80053; 82550; 82553; 84484; 85025; 85610; 93005; 96374; 99284; J1885; Q9967

== ENCOUNTER → 2025-03-17 | Outpatient (REF) | payer MEDICARE, MEDICAID ==
[2025-03-19 12:57] LABS: HPV APTIMA Not Detected (Not Detected)
== END ==
LOC: M SFHCWAGY 15:26
PROVIDERS: ATTEND Specialist
DX: Z01.419 Encounter for gynecological examination (general) (routine) without abnormal findings (principal)